=== PATIENT | male | born 1930 | race Caucasian/White ===

== ENCOUNTER 2016-12-15 21:02 | Inpatient (IN) | payer MEDICARE ==
[2016-12-15] MEDS ORDERED: Acetaminophen TAB* 325 MG PO PRN (22:30)
[2016-12-15] MEDS ORDERED: Heparin DRIP 25,000 UNITS(*) 25,000 UNITS/500 ML BAG IV SCH (22:30)
[2016-12-15] MEDS ORDERED: Ondansetron INJ* 2 MG/ML VIAL IV PRN (22:35)
[2016-12-15] MEDS: Morphine INJ* 4 MG/ML 1 ML CARPUJECT IV PRN (22:52)
[2016-12-15] MEDS ORDERED: Diltiazem DRIP* 100 MG/100 ML ADDV.BAG IVPB SCH (23:00)
[2016-12-15] MEDS ORDERED: Heparin VIAL(*) 5000 UNITS/ML VIAL (FIVE THOUSAND) IV SCH (23:00)
[2016-12-15 23:46] LABS: Hematocrit 36 % (42-52); Mean Corpuscular HGB Conc 33 g/dl (31-36); Mean Corpuscular Hemoglobin 31 pg (27-31); Mean Corpuscular Volume 93 fL (80-94); Mean Platelet Volume 8 um3 (7.4-10.4); Red Blood Count 3.85 10^6/ul (4.0-5.4); Red Cell Distribution Width 14 % (10.5-15); White Blood Count 9.4 10^3/ul (3.5-10.8)
[2016-12-16 00:11] LABS: Albumin 3.1 g/dL (3.2-5.2); BUN/Creatinine Ratio 16.8 (8-20); Calcium 8.7 mg/dL (8.6-10.3); EGFR African American 79.3 (>60); EGFR Non-African American 61.7 (>60); Globulin 3.6 g/dL (2-4); Total Bilirubin 0.9 mg/dL (0.2-1.0); Total Protein 6.7 g/dL (6.4-8.9)
[2016-12-16 00:13] LABS: Troponin I 0.03 ng/mL (<0.04)
[2016-12-16] MEDS: Heparin VIAL(*) 5000 UNITS/ML VIAL (FIVE THOUSAND) IV SCH ×2 (00:35→18:28)
[2016-12-16] MEDS: Heparin DRIP 25,000 UNITS(*) 25,000 UNITS/500 ML BAG IVPB SCH (00:39)
[2016-12-16] MEDS ORDERED: Iohexol 350* (CONTRAST) 500 ML MDV IV ONE (03:09)
--- NOTE | 2016-12-16 03:36 | HP ---
HISTORY AND PHYSICAL: DATE OF ADMISSION: 12/15/16 CHIEF COMPLAINT: Chest pain. HISTORY OF PRESENT ILLNESS: The patient is an 86-year-old gentleman, who stated he went to get grocery this morning, about half way there, he started feeling awful. He felt overwhelming sickness, but mostly pain in the center of his chest. It was very bad whenever he took a deep breath. At its worst, by noon, it was 10/10 in severity. He took nothing for it. There was no radiation of the pain. He had no shortness of breath, no nausea, no sweatiness or clamminess, no palpitations. Eventually, he went to the emergency room where apparently he was given morphine when pain got better. It also improved as his heart rate got better and there he was found to have an atrial fibrillation with a rapid ventricular response. The patient states that he had this many years ago between ages of 21 and 41, but it went away eventually. PAST MEDICAL HISTORY: Significant for hypertension, hyperlipidemia, and atrial fibrillation as noted. PAST SURGICAL HISTORY: Bilateral total knee replacements and a tear in his right shoulder that was repaired. CURRENT MEDICATIONS: 1. Imipramine 150 mg at bedtime and 50 mg daily. 2. Simvastatin 40 mg in the evening. 3. Omeprazole 20 mg twice daily. 4. Hydrochlorothiazide 12.5 mg daily. 5. Atenolol 25 mg family. ALLERGIES: He has an allergy/adverse reaction to CODEINE. FAMILY HISTORY: Noncontributory. SOCIAL HISTORY: No tobacco, quit at age 41, rare alcohol. No recreational drug use. 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 He is , with 3 children. His daughter, Alexandria Balderas, and his son, Amilcar Patterson, are his healthcare proxies. REVIEW OF SYSTEMS: A 14-point review of systems completed with the patient. All pertinent positives and negatives are in the history of present illness, otherwise is negative. PHYSICAL EXAMINATION GENERAL: A pleasant gentleman lying in bed, in no acute distress. VITAL SIGNS: Blood pressure is 98/71, pulse ox 97% on 2 L, respiratory rate 20 breaths per minute, heart rate 156 beats a minute, temperature 97.7 degrees. HEENT: Normocephalic, atraumatic. Pupils equal, round, and reactive to light. Moist mucous membranes. NECK: Supple. No JVD, bruits, palpable thyroid, or lymphadenopathy. CHEST: Clear to auscultation and percussion bilaterally. CARDIOVASCULAR: S1, S2 appreciated. Increased rate. Irregularly irregular rhythm. ABDOMEN: Positive bowel sounds in all 4 quadrants. Soft, nontender, nondistended. No hepatosplenomegaly. EXTREMITIES: No cyanosis, clubbing, or edema. +2 peripheral pulses bilaterally. NEURO: Alert and oriented x3. He moves all extremities. SKIN: No rashes or abnormalities. DIAGNOSTIC STUDIES/LAB DATA: White count 9.4, hemoglobin 12.0, hematocrit 36, platelets 207. Sodium 135, potassium 4.0, chloride 105, CO2 24, BUN 19, creat 1.13, glucose 111. D-dimer is 277. EKG shows AFib with a rapid ventricular response. Chest x-ray at [facility] preliminary review apparently shows no apparent infiltrates. ASSESSMENT AND PLAN: 1. Atrial fibrillation with a rapid ventricular response. The patient placed on Cardizem drip. Heparin drip as well. We will get a transthoracic echo in the morning, but may want to get a DANYEL with cardioversion with Cardiology consult. His D-dimers were mildly elevated but since his negative predictive value is his strongest indicator, I will get a CTA of his chest. I will cycle his troponins and so far, I do not think that acute coronary syndrome is the cause. 2. Hypertension. Blood pressure is adequately controlled. Continue current regimen. 3. Hyperlipidemia. Stable. Continue statin. 4. FEN. NPO after midnight. 5. DVT prophylaxis. He is on heparin drip. 6. The patient is a full code. TIME SPENT: Over 75 minutes was spent on this H and P, more than 40 minutes of which was spent in direct [id number] contact with the patient in evaluation, physical exam, counseling, and coordination of care. CC: Dr. Bentley Spears * [id number]/[facility] #: [id number] TEDDY
--- NOTE | 2016-12-16 06:36 | PN ---
Progress Note - Progress Note Note: Received call from instructor product inspection radiologist - ct scan shows mediastinal Lymphadenopathy, epigastric Lymphadenopathy, moderate pericardial effusion. No PE.
--- NOTE | 2016-12-16 08:10 | RAD ---
INDICATION: Chest pain. Short of breath. Evaluate for pulmonary embolus. COMPARISON: None TECHNIQUE: Axial source images were obtained from the thoracic inlet to the hemidiaphragms following administration of [address] angiographic technique was utilized. Coronal and sagittal reconstructed images were acquired. CHEST FINDINGS: Neck/thyroid: The visualized neck to include the thyroid appear normal. Chest wall: There are no acute abnormalities of the bony thorax or chest wall. There is spondylitic change of the thoracic spine There is no supraclavicular, infraclavicular, or axillary lymphadenopathy. Lungs : There are no worrisome pulmonary parenchymal masses or infiltrates. There is gravity dependent atelectasis. There are several tiny calcified granulomas and there are several tiny parenchymal nodules which are not calcified which are represent nonspecific findings. Given the findings reported below, metastasis are not excluded. These are in the 2 4 mm range. There is coarsening of interstitium compatible with emphysema. There are no endobronchial lesions. Cardiomediastinal structures: There is no CT evidence of acute pulmonary embolic disease. The heart is normal in size. There is a small pericardial effusion. There is no evidence of aortic aneurysm or dissection. There is mild ectasia of the aorta. There are atherosclerotic changes of the aorta there multiple mildly prominent mediastinal lymph nodes. The largest lymph nodes are in the pretracheal space is 1.2 cm lymph node. There is a subcarinal lymph node measuring 1.8 cm. Both measurements are in short axis. There are additional smaller lymph nodes which remain moderate with a prominent. The esophagus appears normal. Pleura : There are no pleural-based masses or effusions. Other: Limited views the upper abdomen show a moderate-sized hiatal hernia with apparent thickening of the distal esophagus. Suggest upper endoscopy. There is a mass along lesser curvature measuring 3.4 x 2.5 cm IMPRESSION: 1. No CT evidence of acute pulmonary embolic disease. 2. Multiple small nonspecific pulmonary parenchymal nodules. Metastasis are not excluded. 3. Mildly mediastinal adenopathy 4. Lesser curvature lymph node mass measuring 3.4 cm. 5. Thickened distal esophagus seen in conjunction with a hiatal hernia. Suggest upper endoscopy in light of the presence of adenopathy
--- NOTE | 2016-12-16 09:05 | PN ---
Subjective Date of Service: 12/16/16 Interval History: Patient seen and examined at bedside. He is laying in bed and resting comfortably. He denies CP, SOB, dizziness, palpitations, abd pain, n/v at this time. He recalls a remote history of "something wrong with his heart" but then states that it got better and has been "off and on" over the years. He cannot recall the name of his PCP or the name of his field care coordinator, who he no longer follows with. He states yesterday he had severe chest pain that went up into his neck. He states that he has had this pain in the past and thinks that it corresponds with "the heart problem." Telemetry: Afib 110s Family History: Unchanged from Admission Social History: Unchanged from Admission Past Medical History: Unchanged from Admission Objective Active Medications: Acetaminophen (Tylenol Tab*) 650 mg PO Q4H PRN PRN Reason: pain/fever Heparin Sodium (Porcine) (Heparin Vial(*)) 0 units IV .PER PROTOCOL ALEE PRN Reason: Protocol Last Admin: 12/16/16 00:35 Dose: 5,250 units Diltiazem HCl (Cardizem Iv Advan*) 100 mg in 100 mls @ 5 mls/hr IVPB .PER RATE ALEE PRN Reason: 5 MG/HR Last Admin: 12/15/16 23:05 Dose: 5 mls/hr Heparin Sodium/Dextrose (Heparin Drip 25,000 Units(*)) 25,000 units in 500 mls @ 0 mls/hr IVPB .PER RATE ALEE; Per Protocol PRN Reason: Protocol Last Admin: 12/16/16 00:39 Dose: 1,000 mls/hr Morphine Sulfate (Morphine Inj (Syringe)*) 4 mg IV Q4H PRN PRN Reason: PAIN Last Admin: 12/15/16 22:52 Dose: 4 mg Ondansetron HCl (Zofran Inj*) 4 mg IV Q4H PRN PRN Reason: NAUSEA Last Admin: 12/15/16 22:52 Dose: 4 mg Vital Signs 12/15/16 12/15/16 12/15/16 22:28 22:32 22:52 Temperature 97.7 F Pulse Rate 153 Respiratory 25 20 20 Rate Blood Pressure 121/73 (mmHg) O2 Sat by Pulse 95 Oximetry 12/15/16 12/15/1612/15/17 22:55 23:00 23:05 Temperature Pulse Rate 149 137 Respiratory 26 22 Rate Blood Pressure 106/72 114/79 117/79 (mmHg) O2 Sat by Pulse 96 100 Oximetry 12/15/16 12/15/16 12/15/16 23:10 23:15 23:20 Temperature Pulse Rate 150 141 122 Respiratory 21 22 25 Rate Blood Pressure 128/108 113/78 117/80 (mmHg) O2 Sat by Pulse 95 99 93 Oximetry 12/15/16 12/15/16 12/15/16 23:25 23:30 23:35 Temperature Pulse Rate 159 156 140 Respiratory 23 22 21 Rate Blood Pressure 104/76 94/74 104/80 (mmHg) O2 Sat by Pulse 99 100 97 Oximetry 12/15/16 12/15/16 12/15/16 23:40 23:45 23:50 Temperature Pulse Rate 139 140 140 Respiratory 24 22 22 Rate Blood Pressure 115/84 111/89 123/96 (mmHg) O2 Sat by Pulse 99 99 99 Oximetry 12/15/16 12/15/16 12/16/16 23:52 23:55 00:00 Temperature Pulse Rate 154 151 Respiratory 16 23 22 Rate Blood Pressure 103/79 97/73 (mmHg) O2 Sat by Pulse 98 94 Oximetry 12/16/16 12/16/16 12/16/16 00:05 00:15 00:30 Temperature Pulse Rate 144 151 138 Respiratory 21 22 22 Rate Blood Pressure 103/72 107/67 69/27 (mmHg) O2 Sat by Pulse 90 100 99 Oximetry 12/16/16 12/16/16 12/16/16 00:37 00:45 00:49 Temperature Pulse Rate 157 157 Respiratory 23 20 Rate Blood Pressure 103/79 81/56 98/71 (mmHg) O2 Sat by Pulse 97 97 Oximetry 12/16/16 12/16/16 12/16/16 01:00 01:22 01:30 Temperature Pulse Rate 141 147 Respiratory 23 16 23 Rate Blood Pressure 105/87 104/66 (mmHg) O2 Sat by Pulse 96 94 Oximetry 12/16/16 12/16/16 12/16/16 02:00 02:30 03:00 Temperature Pulse Rate 142 135 Respiratory 22 22 23 Rate Blood Pressure 93/68 99/84 (mmHg) O2 Sat by Pulse 98 97 Oximetry 02/12/16/16 12/16/16 03:09 04:00 05:00 Temperature Pulse Rate Respiratory 25 22 21 Rate Blood Pressure 104/67 104/72 101/66 (mmHg) O2 Sat by Pulse Oximetry 12/16/16 12/16/16 12/16/16 06:00 07:00 07:29 Temperature Pulse Rate Respiratory 18 18 20 Rate Blood Pressure 119/58 113/72 100/61 (mmHg) O2 Sat by Pulse Oximetry 12/16/16 08:00 Temperature Pulse Rate Respiratory 17 Rate Blood Pressure 108/70 (mmHg) O2 Sat by Pulse Oximetry Oxygen Devices in Use Now: None Appearance: Elderly male, lying in bed, in NAD Eyes: PERRLA Ears/Nose/Mouth/Throat: Clear Oropharnyx, Mucous Membranes Moist Neck: NL Appearance and Movements; NL JVP Respiratory: Symmetrical Chest Expansion and Respiratory Effort, Clear to Auscultation Cardiovascular: NL Sounds; No Murmurs; No JVD - irregular rate Abdominal: NL Sounds; No Tenderness; No Distention Extremities: No Edema Skin: No Rash or Ulcers Neurological: Alert and Oriented x 3 - mildly confused to time, poor short term memory Lines/Tubes/Other Access: Clean, Dry and Intact Peripheral IV Result Diagrams: 12/15/16 23:30 12/15/16 23:30 Assess/Plan/Problems-Billing Assessment: Mr. Patterson is an 86 yo male with a PMH of HTN, HLD, compression fractures, CKD stage III, depression, GERD, spinal stenosis, and paroxysmal SVT who was transferred from [place] for evaluation and treatment of chest pain and new atrial fibrillation; incidental finding also made of mediastinal lymphadenopathy , esophageal thickening and concern for mass. - Patient Problems (1) Atrial fibrillation with rapid ventricular response Code(s): I48.91 - UNSPECIFIED ATRIAL FIBRILLATION Comment: Now rate controlled, switch from IV to PO cardizem Keep NPO for cardiology consult and potential cardioversion Continue heparin gtt (2) Chest pain Code(s): R07.9 - CHEST PAIN, UNSPECIFIED Comment: Denies chest pain with rate control, troponin 0.03 Continue heparin gtt Stress test in AM (3) Mediastinal lymphadenopathy Code(s): R59.0 - LOCALIZED ENLARGED LYMPH NODES Comment: With epigastric lymphadenopathy, esophageal thickening and concern for mass GI consult pending NPO for potential upper endoscopy tomorrow (4) HTN (hypertension) Code(s): I10 - ESSENTIAL (PRIMARY) HYPERTENSION Comment: Continue atenolol. Now on diltazem gtt. (5) HLD (hyperlipidemia) Code(s): E78.5 - HYPERLIPIDEMIA, UNSPECIFIED Comment: Continue statin. (6) CKD (chronic kidney disease), stage III Code(s): N18.3 - CHRONIC KIDNEY DISEASE, STAGE 3 (MODERATE) Comment: Creatinine WNL. (7) Major depressive disorder Code(s): F32.9 - MAJOR DEPRESSIVE DISORDER, SINGLE EPISODE, UNSPECIFIED Comment: Stable, continue imipramine. (8) GERD (gastroesophageal reflux disease) Code(s): K21.9 - GASTRO-ESOPHAGEAL REFLUX DISEASE WITHOUT ESOPHAGITIS Comment : Stable, continue PPI. (9) History of paroxysmal supraventricular tachycardia Code(s): Z86.79 - PERSONAL HISTORY OF OTHER DISEASES OF THE CIRCULATORY SYSTEM Comment: Continue atenolol. (10) Spinal stenosis Code(s): M48.00 - SPINAL STENOSIS, SITE UNSPECIFIED Comment: Supportive care. (11) DVT prophylaxis Code(s): NFY8985 - Comment: Heparin gtt Status and Disposition: Inpatient admission. Anticipate LOS >2 days.
[2016-12-16] MEDS ORDERED: Diltiazem TAB* 30 MG PO SCH (12:00)
--- NOTE | 2016-12-16 13:19 | ECHO ---
Patient: JAIMEE STUART [facility] Rec#: [id number] : 1930 Date: 12/16/2016 Age: 86y Height: 177.8 cm / 70.0 in Weight: 70.76 kg / 156.0 lbs Sex: M BSA: 1.88 Room#: 438 Admit Date#: 12/15/2016 Type: Inpatient Referring: Matias Jason MD Reading: Cirilo Grace MD Water Treatment Operator: Malou Joiner Water Treatment Operator: Glendy You RN RDCS Transthoracic Echocardiogram Indication: A-Fib, Chest pain BP: 119/58 HR: 105 Rhythm: A-Fib Findings History: HTN, HLD, A-Fib. Technical Comments: The study quality is good. Completed at 1240. Left Ventricle: The left ventricular chamber size is normal. Septal wall hypertrophy is observed. There is increased basal septal hypertrophy noted without evidence of an increased gradient across the left ventricular outflow tract. Global left ventricular wall motion and contractility are within normal limits. There is normal left ventricular systolic function. The estimated ejection fraction is 55-60%. The assessment of diastolic function is non-diagnostic. Left Atrium: The left atrium is mildly dilated. Right Ventricle: The right ventricular cavity size is normal. The right ventricular global systolic function is normal. Right Atrium: The right atrium is mildly dilated. A prominent chiari network is noted in the right atrium. Aortic Valve: The aortic valve is trileaflet. The aortic valve leaflets are mildly thickened. There is a trace of aortic regurgitation. There is no evidence of aortic stenosis. Mitral Valve: There is mitral annular calcification. The mitral valve leaflets are mildly thickened. There is mild to moderate mitral regurgitation. There is no evidence of mitral stenosis. Tricuspid Valve: The tricuspid valve leaflets are normal. There is mild tricuspid regurgitation. No pulmonary hypertension is noted. There is no tricuspid stenosis. Pulmonic Valve: The pulmonic valve appears normal. There is a trace pulmonic regurgitation. There is no pulmonic stenosis. Pericardium: There is a small pericardial effusion. There are no signs of significant hemodynamic compromise. There is a circumferential pericardial effusion. Aorta: There is no dilatation of the ascending aorta. There is no dilatation of the aortic arch. There is no dilation of the aortic root. Pulmonary Artery: The main pulmonary artery appears normal. Venous: The inferior vena cava appears normal in size. There is an approximate 50% respiratory change in the inferior vena cava dimension. Conclusions Global left ventricular wall motion and contractility are within normal limits. There is normal left ventricular systolic function. The estimated ejection fraction is 55-60%. There is increased basal septal hypertrophy noted without evidence of an increased gradient across the left ventricular outflow tract. The right ventricular global systolic function is normal. The aortic valve leaflets are mildly thickened. There is a trace of aortic regurgitation. The mitral valve leaflets are mildly thickened. There is mild to moderate mitral regurgitation. There is mild tricuspid regurgitation. No pulmonary hypertension is noted. There is a small pericardial effusion. There are no signs of significant hemodynamic compromise. Measurements Name Value Normal Range RVIDd (AP) 2D 2.2 cm (0.9 - 2.6) RVDdMajor (2D) 2.5 cm (2.2 - 4.4) RAd ISD 4CH 5.3 cm (3.4 - 4.9) RA (A4C)W 3.9 cm (2.9 - 4.6) IVSd (2D) 1.1 cm (0.6 - 1) LVPWd (2D) 0.9 cm (0.6 - 1) LVIDd (2D) 3.7 cm (3.6 - 5.4) LVIDs (2D) 2.7 cm - LV FS (2D) 27 % (25 - 45) Aortic Annulus 2.1 cm (1.4 - 2.6) Ao root diameter (2D) 3.4 cm (2.1 - 3.5) Ascending Ao 3.1 cm (2.1 - 3.4) Aortic arch 2.5 cm (1.8 - 3.4) LA dimension (AP) 2D 3.9 cm (2.3 - 3.8) LAd ISD 4CH 5.8 cm (2.9 - 5.3) LA ISD 4CH W 4.3 cm (2.5 - 4.5) Name Value Normal Range LA ESV SP 4CH (A/L) 65 ml - LA ESV SP 2CH (A/L) 59 ml - LA ESV BP (A/L) 64 ml - LA ESV BP (A/L) index 34 ml/m2 - LA ESV SP 4CH (MOD) 61 ml - LA ESV SP 2CH (MOD) 56 ml - Name Value Normal Range MV E-wave Vmax 1.1 m/sec - MV deceleration time 149 msec - LV septal e' Vmax 0.07 m/sec - LV lateral e' Vmax 0.08 m/sec - LV E:e' septal ratio 15.7 ratio - LV E:e' lateral ratio 13.8 ratio - Name Value Normal Range AV Vmax 0.8 m/sec - AV VTI 12.5 cm - AV peak gradient 2.57 mmHg - AV mean gradient 1.57 mmHg - LVOT Vmax 0.8 m/sec - LVOT VTI 11.8 cm - LVOT peak gradient 2.76 mmHg - LVOT mean gradient 1.4 mmHg - CHANDNI Vmax 0.4 m/sec - Name Value Normal Range TR Vmax 2.4 m/sec - TR peak gradient 23 mmHg - RAP 8 mmHg - RVSP 31 mmHg - IVC diameter 1.8 cm - Name Value Normal Range PV Vmax 0.7 m/sec - PV peak gradient 2.1 mmHg -
[2016-12-16] MEDS ORDERED: Midazolam* 1 MG/ML 5 ML VIAL (5 MG) ONE (15:17)
[2016-12-16] MEDS ORDERED: Naloxone* 0.4 MG/ML 1 ML VIAL ONE (15:18)
[2016-12-16] MEDS ORDERED: Flumazenil* 0.1 MG/ML 5 ML MDV ONE (15:18)
[2016-12-16] MEDS ORDERED: fentaNYL* 50 MCG/ML 2 ML VIAL (100 MCG VIAL) ONE (15:18)
[2016-12-16] MEDS ORDERED: Amiodarone IV VIAL* 3 ML ONE (15:35)
[2016-12-16] MEDS: Atorvastatin* 20 MG TAB PO SCH (18:13)
[2016-12-16] MEDS: Atenolol TAB* 25 MG PO SCH (18:13)
[2016-12-16] MEDS ORDERED: IMIPRAMINE 50 MG PO SCH (21:00)
[2016-12-16] MEDS: Amiodarone TAB* 200 MG PO SCH (21:04)
[2016-12-16] MEDS: Omeprazole CAP* 20 MG PO SCH (21:04)
--- NOTE | 2016-12-16 21:15 | CONS ---
CARDIOLOGY CONSULTATION: DATE OF CONSULTATION: 12/16/16 INDICATION FOR CONSULTATION: Atrial fibrillation. HISTORY OF PRESENT ILLNESS: The patient is an 86-year-old gentleman with little past medical history who was admitted to the hospital at [place] because of atrial fibrillation and rapid ventricular response. The patient states that he woke up yesterday morning feeling just fine. He has had no problems and no concerns for the past couple of weeks. He has had no chest pain. No shortness of breath. No changes in medications. No hospitalizations. The patient was out shopping when he had sudden onset of chest pain. He also got some degree of nausea. The patient said that he had severe chest pain radiating, it is 10/10. He said it became worse when he took a deep breath. Eventually, the patient went to the emergency room and was found to be in atrial fibrillation with rapid ventricular response. The patient was given morphine for pain control and Cardizem drip for heart rate control and transferred over to [facility]. PAST MEDICAL HISTORY: Significant for hypertension, hyperlipidemia, possible cardiac arrhythmia. PAST SURGICAL HISTORY: Bilateral knee replacements, shoulder surgery. OUTPATIENT MEDICATIONS: 1. Imipramine 150 mg at night and 50 mg in the morning. 2. Simvastatin 40 mg a day. 3. Omeprazole 20 mg twice a day. 4. Hydrochlorothiazide 12.5 mg a day. 5. Atenolol 25 mg a day. ALLERGIES: He is intolerant of CODEINE. FAMILY HISTORY: No family history of early coronary artery disease or cardiac arrhythmias. SOCIAL HISTORY: He is . 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 He has 3 children. He denies tobacco use. Rare alcohol use. REVIEW OF SYSTEMS: Negative for fevers and chills. Negative for changes in bowel or bladder habits. Negative for changes in weight. Positive for possible arrhythmia. The patient states that over years he has had episodes of chest pain and heart racing, his last episode was 4 weeks ago, they tend to last for approximately 5 to 10 minutes. He has never had any workup for this symptom. PHYSICAL EXAMINATION: Height is 5 feet 10 inches, weight is 156 pounds. Heart rate is 110 and irregular, respiratory rate is 16, blood pressure is 111/82, temperature 99.5. Sclerae anicteric. Oropharynx is pink without erythema. Carotids are 2+ without bruits. JVD is normal. Thyroid is normal. Cardiac Exam: S1, S2 without any murmurs, rubs, or gallops. PMI is normal. Lungs are clear to auscultation bilaterally with no dullness to percussion. Abdomen is soft, nontender, and nondistended with normoactive bowel sounds. Extremities show no edema. He has 2+ pulses throughout. The patient is awake, alert, and oriented. He moves all 4 extremities equally. LABORATORY DATA/DIAGNOSTIC STUDIES: The patient did have CTA of chest. There was no evidence of pulmonary embolism. There was a small pericardial effusion. There is thickening of the distal esophagus. Mild adenopathy. CBC within normal limits. Chemistries within normal limits. BUN 19, creatinine 1.1. AST and ALT are within normal limits. Troponins are negative x2. IMPRESSION: This an 86-year-old gentleman with a sudden onset of chest pain and rapid heartbeat yesterday. He was diagnosed with atrial fibrillation with rapid ventricular response. The patient did have an echocardiogram today, which showed normal LV size and systolic function. No significant valvular abnormalities. He did have a small pericardial effusion. Laboratory studies are unremarkable. His EKG shows atrial fibrillation. RECOMMENDATIONS: For now my recommendation is the patient undergo cardioversion. I think the patient has been in atrial fibrillation less than 24 hours and has been anticoagulated. I do not think a transesophageal echocardiogram is necessary, particularly given the findings on his CAT scan, which are concerning for thickening of the distal esophagus. The patient will be started on amiodarone 200 mg twice a day for control of atrial fibrillation. I will schedule the patient for an exercise nuclear stress test, given the fact that the patient has had episodes of chest pain over the last couple of weeks and had chest pain on presentation here. The patient will likely be discharged on Eliquis 5 mg twice a day as well as amiodarone 200 mg twice a day. I will see the patient in followup at my [facility] in 2 to 3 weeks. CC: Dr. Bentley Spears * [id number]/[facility] #: [id number] TEDDY
--- NOTE | 2016-12-16 21:15 | CARD ---
CARDIOVERSION: DATE OF PROCEDURE: 12/16/16 - ROOM #438 PROCEDURE: Cardioversion. INDICATION: Atrial fibrillation. The patient is an 86-year-old gentleman who was admitted to the hospital yesterday with an episode of chest pain and shortness of breath. He was found to be in atrial fibrillation with rapid ventricular response. The patient was recommended for a cardioversion. He was in atrial fibrillation in less than 24 hours, thus a transesophageal echocardiogram was not needed. PROCEDURE IN DETAIL: The patient was in a fasting state. Informed consent had been obtained prior to the procedure. All labs have been reviewed. The patient was on heparin drip. The patient was given 4 mg of Versed and 50 mcg of fentanyl for conscious sedation. The patient was cardioverted with 125 joules of synchronized biphasic energy. The patient converted to normal sinus rhythm. The patient tolerated the procedure well with no complications. The patient will be continued on anticoagulation and be started on amiodarone 200 mg b.i.d. for 1 week and then it will be decreased to 200 mg once a day. The patient was seen in followup as an outpatient. CC: Dr. Bentley Spears * [id number]/[facility] #: [id number] MTDAlicia
[2016-12-16] MEDS ORDERED: Metoprolol Tartrate IV* 1 MG/ML 5 ML VIAL IV ONE (22:14)
[2016-12-17] MEDS: Morphine INJ* 4 MG/ML 1 ML CARPUJECT IV PRN (00:33)
[2016-12-17 02:19] LABS: Hematocrit 35 % (42-52); Hemoglobin 11.5 g/dl (14.0-18.0); Mean Corpuscular HGB Conc 33 g/dl (31-36); Mean Corpuscular Hemoglobin 31 pg (27-31); Mean Corpuscular Volume 92 fL (80-94); Mean Platelet Volume 8 um3 (7.4-10.4); Red Blood Count 3.75 10^6/ul (4.0-5.4); Red Cell Distribution Width 14 % (10.5-15); White Blood Count 8.6 10^3/ul (3.5-10.8)
[2016-12-17 02:34] LABS: BUN/Creatinine Ratio 20.6 (8-20); Calcium 8.5 mg/dL (8.6-10.3); EGFR African American 84.5 (>60); EGFR Non-African American 65.7 (>60); Magnesium 1.4 mg/dL (1.9-2.7); Potassium 3.6 mmol/L (3.5-5.0)
[2016-12-17] MEDS: Heparin DRIP 25,000 UNITS(*) 25,000 UNITS/500 ML BAG IVPB SCH (05:00)
[2016-12-17] MEDS ORDERED: Magnesium Sulf 4 GM/100 ML IV* 4,000 MG/100 ML BAG IVPB ONE (08:00)
[2016-12-17] MEDS ORDERED: IMIPRAMINE 50 MG PO SCH (09:00)
[2016-12-17] MEDS ORDERED: Regadenoson* 0.4 MG/5 ML SYRINGE ONE (09:22)
--- NOTE | 2016-12-17 11:05 | RAD ---
Edited for charges. INDICATION: Chest pain. Elevated cholesterol, hypertension. COMPARISON: December 16, 2016 CT chest. TECHNIQUE: 10.700 mCi of Tc-99m Myoview were administered IV. SPECT images of the heart were obtained. Later on the same day, under the direction of Dr. Grace, the patient was given an IV injection of a pharmacologic stress agent. Subsequently, the patient was given an IV injection of 25.570 mCi Tc-99m Myoview. SPECT images of the heart were obtained and a gated wall motion study was performed. CT for attenuation could not be performed due to limitation in range of motion of the arms. FINDINGS: Gated wall motion images were obtained at stress and demonstrate wall motion to be within normal limits. Calculated left ventricular ejection fraction is 64 % at stress. Estimated LEFT ventricular end diastolic volume is 54 mL. TID 1.0. Based on review of the non attenuation corrected images the distribution of radiopharmaceutical within the myocardium on the stress and rest images is within normal limits. No fixed or reversible regions of hypoperfusion evident. IMPRESSION: 1. No evidence for stress-induced ischemia or presence of an infarct. 2. Normal range LEFT ventricular wall motion and estimated ejection fraction. ASSESSMENT: Low risk. Based on imaging criteria from ACC/AHA 2002 Guideline Update for the Management of Patients With Chronic Stable Angina Table 23. Noninvasive Risk Stratification. MTDD
[2016-12-17] MEDS: Omeprazole CAP* 20 MG PO SCH ×2 (11:18→21:29)
[2016-12-17] MEDS: Amiodarone TAB* 200 MG PO SCH (11:18)
[2016-12-17] MEDS: Atenolol TAB* 25 MG PO SCH (11:18)
[2016-12-17] MEDS: Potassium Chlor TAB* 20 MEQ TAB.ER PO SCH ×3 (11:18→21:29)
[2016-12-17] MEDS: CMC:Imipramine (NF) 25 MG TAB PO SCH ×2 (11:18→21:29)
[2016-12-17] MEDS ORDERED: Apixaban* 5 MG TAB PO SCH (13:00)
[2016-12-17] MEDS ORDERED: Meperidine SYRINGE* 50 MG/ML ONE (14:53)
[2016-12-17] MEDS ORDERED: Midazolam* 1 MG/ML 5 ML VIAL (5 MG) ONE (14:53)
--- NOTE | 2016-12-17 16:16 | PN ---
Subjective Date of Service: 12/17/16 Interval History: Patient seen and examined at bedside. Family at bedside. He denies CP, SOB, abd pain, n/v. He is tearful, stating "I have depression" and is worried about his meds. He also states he has a sick . He is grateful that his family is here. Telemetry: Afib 100s Family History: Unchanged from Admission Social History: Unchanged from Admission Past Medical History: Unchanged from Admission Objective Active Medications: Acetaminophen (Tylenol Tab*) 650 mg PO Q4H PRN PRN Reason: pain/fever Atenolol (Tenormin Tab*) 25 mg PO DAILY [facility] Last Admin: 12/17/16 11:18 Dose: 25 mg Atorvastatin Calcium (Lipitor*) 20 mg PO QPM [facility] Last Admin: 12/16/16 18:13 Dose: 20 mg Diltiazem HCl (Cardizem Cd Cap*) 120 mg PO DAILY [facility] Diltiazem HCl (Cardizem Tab*) 30 mg PO Q6HR [facility] Stop: 12/18/16 00:01 Imipramine HCl (Imipramine (Nf)) 50 mg PO DAILY [facility] Last Admin: 12/17/16 11:18 Dose: 50 mg Imipramine HCl (Imipramine (Nf)) 150 mg PO BEDTIME [facility] Morphine Sulfate (Morphine Inj (Syringe)*) 4 mg IV Q4H PRN PRN Reason: PAIN Last Admin: 12/17/16 00:33 Dose: 4 mg Omeprazole (Prilosec Cap*) 20 mg PO BID [facility] Last Admin: 12/17/16 11:18 Dose: 20 mg Ondansetron HCl (Zofran Inj*) 4 mg IV Q4H PRN PRN Reason: NAUSEA Last Admin: 12/15/16 22:52 Dose: 4 mg Potassium Chloride (Klor Con Er Tab*) 20 meq PO TID [facility] Last Admin: 12/17/16 11:18 Dose: 20 meq Vital Signs 12/16/16 12/16/16 12/16/16 17:24 18:06 19:45 Temperature 97.3 F 98.3 F Pulse Rate 57 89 85 Respiratory 16 Rate Blood Pressure 95/81 107/49 109/64 (mmHg) O2 Sat by Pulse 95 96 93 Oximetry 12/16/16 12/17/16 12/17/16 20:00 00:09 00:33 Temperature 98.4 F Pulse Rate 101 Respiratory 16 22 16 Rate Blood Pressure 119/69 (mmHg) O2 Sat by Pulse 91 Oximetry 12/17/16 12/17/16 12/17/16 01:33 03:50 07:26 Temperature 97.7 F 97.8 F Pulse Rate 112 108 Respiratory 18 20 16 Rate Blood Pressure 122/66 118/74 (mmHg) O2 Sat by Pulse 93 96 Oximetry 12/17/16 12/17/16 07:55 10:57 Temperature 97.3 F Pulse Rate 131 Respiratory 16 16 Rate Blood Pressure 102/41 (mmHg) O2 Sat by Pulse 88 Oximetry Oxygen Devices in Use Now: None Appearance: Elderly male, lying in bed, tearful in demeanor but otherwise appears hemodynamically stable Eyes: PERRLA Ears/Nose/Mouth/Throat: Mucous Membranes Moist Neck: NL Appearance and Movements; NL JVP Respiratory: Symmetrical Chest Expansion and Respiratory Effort, Clear to Auscultation Cardiovascular: NL Sounds; No Murmurs; No JVD - irregular rate/rhythm Abdominal: NL Sounds; No Tenderness; No Distention Extremities: No Edema Skin: No Rash or Ulcers Neurological: Alert and Oriented x 3 Lines/Tubes/Other Access: Clean, Dry and Intact Peripheral IV Nutrition: Taking PO's Result Diagrams: 12/17/16 02:06 12/17/16 02:06 Assess/Plan/Problems-Billing Assessment: Mr. Patterson is an 86 yo male with a PMH of HTN, HLD, compression fractures, CKD stage III, depression, GERD, spinal stenosis, and paroxysmal SVT who was transferred from [place] for evaluation and treatment of chest pain and new atrial fibrillation; incidental finding also made of mediastinal lymphadenopathy , esophageal thickening and concern for mass. - Patient Problems (1) Atrial fibrillation with rapid ventricular response Code(s): I48.91 - UNSPECIFIED ATRIAL FIBRILLATION Comment: Previous plan for cardioversion, but this has been cancelled due to finding of mass Per cardiology, d/c amiodarone and continue rate control with atenolol and cardizem Hold on anticoagulation given new finding of potential adenocarcinoma (2) Mediastinal lymphadenopathy Code(s): R59.0 - LOCALIZED ENLARGED LYMPH NODES Comment: With epigastric lymphadenopathy, esophageal thickening and concern for mass Appreciate GI consult Mass seen and biopsied by GI, expressed concern for potential adenocarcinoma Also evidence of Clayton's esophagus, hiatal nernia Discussed with oncology, who will review case; onc recommends pathology results to be finalized before official consult. (3) Chest pain Code(s): R07.9 - CHEST PAIN, UNSPECIFIED Comment: Denies chest pain with rate control, troponin 0.03 Stress test negative for stress-induced ischemia or infarct (4) HTN (hypertension) Code(s): I10 - ESSENTIAL (PRIMARY) HYPERTENSION Comment: Normotensive, continue atenolol and diltiazem. (5) HLD (hyperlipidemia) Code(s): E78.5 - HYPERLIPIDEMIA, UNSPECIFIED Comment: Continue statin. (6) CKD (chronic kidney disease), stage III Code(s): N18.3 - CHRONIC KIDNEY DISEASE, STAGE 3 (MODERATE) Comment: Creatinine WNL. (7) Major depressive disorder Code(s): F32.9 - MAJOR DEPRESSIVE DISORDER, SINGLE EPISODE, UNSPECIFIED Comment: Stable, continue imipramine. (8) GERD (gastroesophageal reflux disease) Code(s): K21.9 - GASTRO-ESOPHAGEAL REFLUX DISEASE WITHOUT ESOPHAGITIS Comment : Stable, continue PPI. (9) History of paroxysmal supraventricular tachycardia Code(s): Z86.79 - PERSONAL HISTORY OF OTHER DISEASES OF THE CIRCULATORY SYSTEM Comment: Continue atenolol. (10) Spinal stenosis Code(s): M48.00 - SPINAL STENOSIS, SITE UNSPECIFIED Comment: Supportive care. (11) DVT prophylaxis Code(s): WSR6960 - Comment: SCDs, given new finding of potential adenocarcinoma (concern for increased bleeding in mass) Status and Disposition: Inpatient admission. Anticipate LOS >2 days.
[2016-12-17] MEDS: Atorvastatin* 20 MG TAB PO SCH (17:56)
[2016-12-17] MEDS: Diltiazem TAB* 30 MG PO SCH ×2 (17:56→23:21)
--- NOTE | 2016-12-17 20:52 | CONS ---
GASTROENTEROLOGY CONSULT: DATE: 12/17/16 CONSULTING PHYSICIANS: Matias Jason, and Roberto Sahni, [place]. REASON FOR CONSULTATION: Long-term GERD and thickening of distal esophagus on CT scan obtained to do workup, presentation of chest pain and shortness of breath. HISTORY: This 86-year-old man, generally vibrant and healthy, developed shortness of breath and a nonspecific sense of feeling awful. He went to [facility] and was found to be in atrial fibrillation. He was transferred. Here since admission, he has been seen by Cardiology who has started amiodarone. Eventually, systemic anticoagulation is planned. His initial CT scan showed thickening of the distal esophagus. He has not been in any cardiorespiratory distress while at the hospital. PAST MEDICAL HISTORY: 1. Hypertension - many years. 2. Chronic GERD - on omeprazole 20 years. Dyspepsia recurs any time he stops it. He states that over the last couple of months, he has noted a little bit more difficulty swallowing, but nothing really gets hung up. He points to his throat. 3. Depression - apparently only imipramine that he has been taking helps him. It has been a number of years since anything else has been tried. 4. 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 5. Status post left knee replacement 13 years ago. 6. Left shoulder repair. 7. Appendectomy - age 22. MEDICATIONS: At home Imipramine 50 in the a.m., 150 h.s, Atenolol 25, Hydrochlorothiazide 12.5, Simvastatin 40 h.s, Omeprazole 20 mg b.i.d. ALLERGIES: He responds poorly to CODEINE. FAMILY HISTORY: His father was on insulin for many years and of complications of diabetes. His mother of CHF. He is the 7th of 10 siblings with only 1 brother still alive. He is not sure if any have had cancer. 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 He has 3 children. His son from [place] and [id number] are in the room. They state that they have been negotiating to get the patient and his to come to an assisted living facility near [place]. They have resisted that. The patient's is just starting peritoneal dialysis and he is struggling with handling that. REVIEW OF SYSTEMS: No history of vomiting, actual obstruction in the esophagus , gallstones, jaundice, hepatitis, syncope, MT, TB, fever, purulent sputum, or rectal bleeding. He does not believe he has had a colonoscopy in the family, believes they can corroborate that. He has no edema. EXAM: He is a healthy-appearing 86-year-old man appearing his stated age. He is hard of hearing. He is anicteric. Mucous membranes are a little dry. HEENT exam is otherwise unremarkable. He has no adenopathy. His lungs are clear. Heart sounds are irregular and without a murmur. His abdomen is flat, soft, and without focal tenderness. Rectal is symmetric, smooth, and there is gummy light brown stool sent for occult blood (negative) and there is no obvious prostate mass. Extremities show no edema. IMPRESSION: This 86-year-old man has had many years of gastroesophageal reflux disease and now reports having some swallowing changes during an admission for a fib. While reduction in salivary flow from his tricyclic antidepressants certainly could be a factor in this, the CAT scan suggests a problem in the lower esophagus and this needs to be investigated via upper endoscopy. The impression of lymphadenopathy is ominous. With heme-negative stool at this time , if there is a mass present, some cautious anticoagulation could be considered , though any possible oncologic treatment planning will have to be factored in. [id number]/[facility] #: [id number] TEDDY
--- NOTE | 2016-12-18 03:45 | PRO ---
DATE: 12/17/16 - ROOM #[id number] REFERRING PHYSICIAN: Roberto Mccallum, [place].* PROCEDURE PERFORMED: Upper gastrointestinal endoscopy and biopsy of esophageal mass from 34 to 40; CLOtest from gastric body. INDICATION: This 86-year-old man admitted with shortness of breath and found to be in atrial fibrillation. He is under-going a cardiac assessment. The CT of the chest noted thickening of the esophagus and possible lymphadenopathy. He has a long history of GERD on omeprazole for possibly 20 years. Informed consent was obtained from the patient and previous discussion had been held with his son and [id number] in the room. ENDOSCOPIST: Dr Weber MEDICATIONS: Midazolam 2, meperidine 25. FINDINGS: He is a surprisingly fit appearing older man, hard of hearing in no overt distress. He is in atrial fibrillation around 110. Abdomen is flat and nontender. EGD: Larynx - symmetric limited views. Esophagus - easily entered. The mucosa is normal in the upper and mid esophagus and then at around 31, there is a Clayton's stripe at 5 o'clock which then at 34 becomes an upwelling with a sessile deformity and a catalino mass by about 35 cm. An irregular mass, circumferential continues down to 40 cm at which point, there was a medium hiatal hernia with a hiatus at 43. The scope went through easily and there was no sense of obstruction per se. The area was a little bit friable. During the withdrawal phase of the procedure, biopsies were taken from 37, 35 and 34. Stomach - generally normal mucosa in the cardia, fundus, body and antrum. There is some minor papillation. There is no deformity. The pylorus has a redundant set of swirling folds and is narrow and resist intubation when initially approached and only insertion and ongoing pressure results in popping through the pylorus, which is therefore mildly stenotic. Duodenum - the bulb and the second through fourth portions appear normal. Pylorus is long and appears probably scarred, but the scope does through and there is no gastric retention noted. There was no preprocedure history of vomiting. IMPRESSION: 1. Hiatal hernia at 43, moderate. 2. Pyloric stenosis - mild. 3. Mild diffuse gastropathy - H. pylori suspected. 4. 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 Addendum: invasive adenocarcinoma [id number]/[facility] #: [id number] [facility]
[2016-12-18 06:08] LABS: Anion Gap 9 mmol/L (2-11); BUN/Creatinine Ratio 22.2 (8-20); Blood Urea Nitrogen 24 mg/dL (6-24); CO2 Carbon Dioxide 23 mmol/L (22-32); Calcium 8.5 mg/dL (8.6-10.3); Chloride 100 mmol/L (101-111); EGFR African American 83.6 (>60); Glucose 86 mg/dL (70-100); Magnesium 1.8 mg/dL (1.9-2.7); Potassium 3.7 mmol/L (3.5-5.0); Sodium 132 mmol/L (133-145)
[2016-12-18] MEDS ORDERED: Magnesium Sulfate 2 GM IV* 2 GM/50 ML BAG IVPB ONE (07:49)
[2016-12-18] MEDS: Atenolol TAB* 25 MG PO SCH (09:12)
[2016-12-18] MEDS: Diltiazem CD CAP* 120 MG PO SCH (09:12)
[2016-12-18] MEDS: Potassium Chlor TAB* 20 MEQ TAB.ER PO SCH ×3 (09:13→22:57)
[2016-12-18] MEDS: CMC:Imipramine (NF) 25 MG TAB PO SCH ×2 (09:13→22:58)
[2016-12-18] MEDS: Omeprazole CAP* 20 MG PO SCH ×2 (09:13→22:56)
[2016-12-18 09:38] LABS: Total Iron Binding Capacity 238 mcg/dL (250-450); Transferrin 170 mg/dL (203-362)
[2016-12-18 09:39] LABS: Iron < 15 ug/dL (50-212)
--- NOTE | 2016-12-18 10:24 | CONSULT ---
Consultation - Reason for Consultation Reason for Consultation: esophageal mass, likely malignant Ordering Provider: Shari Honeycutt Chief Complaint: feeling ill, found to be in afib w rvr History of Present Illness: 86 yo M in general good health presenting with SOB/weakness and found to be in afib w RVR and with an esophageal mass. Rajinder reports being in good health until he presented with generalized weakness and SOB and was found to be in afib. He was transfered from [facility]. He had a CTA on admission which revealed a mass in the distal esophagus with mild mediastinal adenopathy and tiny pulmonary nodules. He had an endoscopy yesterday which showed a circumferential mass from 35-40 cm, slightly friable, in the background of clear Clayton's esophagus. A biopsy was obtained. He does report in retrospect difficulty swallowing over the last several months, but has a vague description of this. He is not choking per se, not vomiting, just aware of the food in his esophagus. He has lost 26 pounds which he relates mainly to the stress of taking care of his who has recently become dialysis dependant, but has generally been in poor health over the last 2 years. He does have a history of chronic GERD and has been on BID PPI for years. 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 Allergies/Medications Medication: Acetaminophen (Tylenol Tab*) 650 mg PO Q4H PRN PRN Reason: pain/fever Atenolol (Tenormin Tab*) 25 mg PO DAILY [facility] Last Admin: 12/18/16 09:12 Dose: 25 mg Atorvastatin Calcium (Lipitor*) 20 mg PO QPM [facility] Last Admin: 12/17/16 17:56 Dose: 20 mg Diltiazem HCl (Cardizem Cd Cap*) 120 mg PO DAILY [facility] Last Admin: 12/18/16 09:12 Dose: 120 mg Imipramine HCl (Imipramine (Nf)) 50 mg PO DAILY [facility] Last Admin: 12/18/16 09:13 Dose: 50 mg Imipramine HCl (Imipramine (Nf)) 150 mg PO BEDTIME [facility] Last Admin: 12/17/16 21:29 Dose: 150 mg Morphine Sulfate (Morphine Inj (Syringe)*) 4 mg IV Q4H PRN PRN Reason: PAIN Last Admin: 12/17/16 00:33 Dose: 4 mg Omeprazole (Prilosec Cap*) 20 mg PO BID [facility] Last Admin: 12/18/16 09:13 Dose: 20 mg Ondansetron HCl (Zofran Inj*) 4 mg IV Q4H PRN PRN Reason: NAUSEA Last Admin: 12/15/16 22:52 Dose: 4 mg Potassium Chloride (Klor Con Er Tab*) 20 meq PO TID [facility] Last Admin: 12/18/16 09:13 Dose: 20 meq Allergies/Adverse Reactions: Allergies Allergy/AdvReac Type Severity Reaction Status Date / Time Codeine AdvReac Unknown GI Upset Verified 12/15/16 23:31 History - Past Medical History Other History: HTN. GERD. depression. right knee replacement. left knee replacement. left shoulder repair. appendectomy - Family History Other Family History: no fhx of cancer - Social History Other Social History: remote tobacco, quit 45 years ago. no excessive ETOH. 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 Review of Systems - Review of Systems Constitutional Symptoms: Positive: Weight Loss Dermatology: Positive: Normal HEENT: Positive: Normal Eyes: Positive: Normal Thyroid: Positive: Normal Pulmonary: Positive: Normal, Shortness of Breath Cardiology: Positive: Shortness of Breath Gastroenterology: Positive: Anorexia, Difficulty Swallowing Genital - Urinary: Positive: Normal Endocrinology: Positive: Normal Neurology: Positive: Normal Psychiatry: Positive: Depression Physical Exam - Physical Exam Physical Examination: Vital Signs Temp Pulse Resp BP Pulse Ox 97.5 F 117 18 94/61 97 12/18/16 07:32 12/18/16 07:32 12/18/16 08:00 12/18/16 07:32 12/18/16 07:32 sitting up in nad temporal wasting perr eomi op moist CTA but distant irr irr soft nt +bs no le edema scattered ecchymoses A+O x 3, nonfocal neurological exam Results - Lab Results Lab Results: 12/15/16 12/15/16 12/15/16 23:30 23:30 23:30 WBC 9.4 RBC 3.85 L Hgb 12.0 L Hct 36 L MCV 93 MCH 31 MCHC 33 RDW 14 Plt Count 207 MPV 8 Neut % (Auto) 82.9 Lymph % (Auto) 7.7 L [place] % (Auto) 9.2 H Eos % (Auto) 0.1 Baso % (Auto) 0.1 Absolute Neuts (auto) 7.8 H Absolute Lymphs (auto) 0.7 L Absolute Monos (auto) 0.9 H Absolute Eos (auto) 0 Absolute Basos (auto) 0 Absolute Nucleated RBC 0 Nucleated RBC % 0 INR (Anticoag Therapy) 1.29 H APTT 30.2 D-Dimer, Quantitative 277 H Sodium 135 Potassium 4.0 Chloride 105 Carbon Dioxide 24 Anion Gap 6 BUN 19 Creatinine 1.13 Est GFR ( Amer) 79.3 Est GFR (Non-Af Amer) 61.7 BUN/Creatinine Ratio 16.8 Glucose 111 H POC Glucose (mg/dL) Calcium 8.7 Magnesium Iron TIBC % Saturation Unsat Iron Binding Total Bilirubin 0.90 AST 13 ALT 9 Alkaline Phosphatase 67 Troponin I 0.03 Total Protein 6.7 Albumin 3.1 L Globulin 3.6 Albumin/Globulin Ratio 0.9 L 12/16/16 12/16/16 12/16/16 07:18 07:18 17:15 WBC RBC Hgb Hct MCV MCH MCHC RDW Plt Count MPV Neut % (Auto) Lymph % (Auto) [place] % (Auto) Eos % (Auto) Baso % (Auto) Absolute Neuts (auto) Absolute Lymphs (auto) Absolute Monos (auto) Absolute Eos (auto) Absolute Basos (auto) Absolute Nucleated RBC Nucleated RBC % INR (Anticoag Therapy) APTT 122.7 H* 45.4 H D-Dimer, Quantitative Sodium Potassium Chloride Carbon Dioxide Anion Gap BUN Creatinine Est GFR ( Amer) Est GFR (Non-Af Amer) BUN/Creatinine Ratio Glucose POC Glucose (mg/dL) Calcium Magnesium Iron TIBC % Saturation Unsat Iron Binding Total Bilirubin AST ALT Alkaline Phosphatase Troponin I 0.03 Total Protein Albumin Globulin Albumin/Globulin Ratio 12/17/16 12/17/16 12/17/16 02:06 02:06 02:06 WBC 8.6 RBC 3.75 L Hgb 11.5 L Hct 35 L MCV 92 MCH 31 MCHC 33 RDW 14 Plt Count 197 MPV 8 Neut % (Auto) 76.0 Lymph % (Auto) 12.4 L [place] % (Auto) 10.8 H Eos % (Auto) 0.5 Baso % (Auto) 0.3 Absolute Neuts (auto) 6.6 Absolute Lymphs (auto) 1.1 Absolute Monos (auto) 0.9 H Absolute Eos (auto) 0 Absolute Basos (auto) 0 Absolute Nucleated RBC 0 Nucleated RBC % 0 INR (Anticoag Therapy) APTT 63.5 H D-Dimer, Quantitative Sodium 131 L Potassium 3.6 Chloride 100 L Carbon Dioxide 23 Anion Gap 8 BUN 22 Creatinine 1.07 Est GFR ( Amer) 84.5 Est GFR (Non-Af Amer) 65.7 BUN/Creatinine Ratio 20.6 H Glucose 114 H POC Glucose (mg/dL) Calcium 8.5 L Magnesium 1.4 L Iron TIBC % Saturation Unsat Iron Binding Total Bilirubin AST ALT Alkaline Phosphatase Troponin I Total Protein Albumin Globulin Albumin/Globulin Ratio 12/17/16 12/17/16 12/18/16 10:42 17:11 05:10 WBC RBC Hgb Hct MCV MCH MCHC RDW Plt Count MPV Neut % (Auto) Lymph % (Auto) [place] % (Auto) Eos % (Auto) Baso % (Auto) Absolute Neuts (auto) Absolute Lymphs (auto) Absolute Monos (auto) Absolute Eos (auto) Absolute Basos (auto) Absolute Nucleated RBC Nucleated RBC % INR (Anticoag Therapy) APTT 54.0 H D-Dimer, Quantitative Sodium 132 L Potassium 3.7 Chloride 100 L Carbon Dioxide 23 Anion Gap 9 BUN 24 Creatinine 1.08 Est GFR ( Amer) 83.6 Est GFR (Non-Af Amer) 65.0 BUN/Creatinine Ratio 22.2 H Glucose 86 POC Glucose (mg/dL) 84 Calcium 8.5 L Magnesium 1.8 L Iron < 15 L TIBC 238 L % Saturation 6 L Unsat Iron Binding [id number] Total Bilirubin AST ALT Alkaline Phosphatase Troponin I Total Protein Albumin Globulin Albumin/Globulin Ratio Assessment and Plan Impression: 87 yo M with a history of GERD presening with afib w RVR and found on imaging to have an esophageal mass, which visually is consistent with cancer. I have discussed this with Rajinder and his family at length. This most certainly represents an adenocarcinoma given the location and Clayton's. At this point he will need a full staging work up, starting with a PET/CT. If there only localized disease he may benefit from an EUS for staging, though honestly is not likely to be a surgical candidate and so it would be reasonable with the extent of disease visually to consider combined modality therapy with chemoRT ( low dose weekly carbo/taxol/RT). I am significantly concerned about his ability to manage this AND provide total care for his . His family has been trying to get him to relocate to [place], which I think is completely reasonable and I can set him up with Dr. Donis there if necessary. Alternatively they could come closer to [place]. Either way I will try to expedite a PET scan next week and see him back to discuss final recommendations. He should follow up in my office on 12/26 at 11 am. My office will call him with the PET time
[2016-12-18 10:39] LABS: Vitamin B12 483 pg/mL (180-914)
[2016-12-18] MEDS ORDERED: Atenolol TAB* 25 MG PO ONE (14:15)
[2016-12-18] MEDS: Morphine INJ* 4 MG/ML 1 ML CARPUJECT IV PRN (16:50)
[2016-12-18] MEDS: Atorvastatin* 20 MG TAB PO SCH (17:21)
--- NOTE | 2016-12-18 18:34 | PN ---
Subjective Date of Service: 12/18/16 Interval History: This is an 86 yo gentleman admitted with rapid afib who underwent cardioversion and subsequently returned to afib, rate is ~100 bpm. Patient reports no CP, palp, or SOB, no n/v. An esophageal mass was recognized on CT with assoc LAD and pt underwent EGD yesterday by Dr Weber, the presence of the mass was confirmed and biopsy path is pending. Patient was seen by oncologist, Dr Tinoco, this am. This evening, patient reported a sudden onset of severe RLQ abdominal pain. Pain is in the R inguinal region. Denies hematuria. Denies radiation of the pain. No recent diarrhea, last BM was this am. No n/v. Objective Active Medications: Acetaminophen (Tylenol Tab*) 650 mg PO Q4H PRN PRN Reason: pain/fever Apixaban (Eliquis*) 5 mg PO BID [facility] Atenolol (Tenormin Tab*) 50 mg PO DAILY [facility] Atorvastatin Calcium (Lipitor*) 20 mg PO QPM [facility] Last Admin: 12/18/16 17:21 Dose: 20 mg Diltiazem HCl (Cardizem Cd Cap*) 120 mg PO DAILY [facility] Last Admin: 12/18/16 09:12 Dose: 120 mg Imipramine HCl (Imipramine (Nf)) 50 mg PO DAILY [facility] Last Admin: 12/18/16 09:13 Dose: 50 mg Imipramine HCl (Imipramine (Nf)) 150 mg PO BEDTIME [facility] Last Admin: 12/17/16 21:29 Dose: 150 mg Morphine Sulfate (Morphine Inj (Syringe)*) 4 mg IV Q4H PRN PRN Reason: PAIN Last Admin: 12/18/16 16:50 Dose: 4 mg Omeprazole (Prilosec Cap*) 20 mg PO BID [facility] Last Admin: 12/18/16 09:13 Dose: 20 mg Ondansetron HCl (Zofran Inj*) 4 mg IV Q4H PRN PRN Reason: NAUSEA Last Admin: 12/15/16 22:52 Dose: 4 mg Potassium Chloride (Klor Con Er Tab*) 20 meq PO TID [facility] Last Admin: 12/18/16 14:02 Dose: 20 meq Vital Signs: Temp Pulse Resp BP Pulse Ox 97.5 F 114 19 103/72 100 12/18/16 14:42 12/18/16 14:42 12/18/16 16:50 12/18/16 14:42 12/18/16 14:42 Oxygen Devices in Use Now: None Appearance: This am, patient appeared well. But this evening he was obviously very uncomfortable, clutching his RLQ Respiratory: Symmetrical Chest Expansion and Respiratory Effort, Clear to Auscultation Cardiovascular: NL Sounds; No Murmurs; No JVD, - - irregular rhythm Abdominal: - - TTP RLQ, BS present, mild CVA TTP Extremities: No Edema Neurological: Alert and Oriented x 3 Result Diagrams: 12/17/16 02:06 12/18/16 05:10 Microbiology and Other Data: Microbiology 12/17/16 16:00 CLOtest - Final Gastric Antrum 12/17/16 16:00 Stool Gross Appearance - Final Stool Stool Occult Blood ([facility]) - Final Assess/Plan/Problems-Billing Assessment: Mr. Patterson is an 86 yo male with a PMH of HTN, HLD, compression fractures, CKD stage III, depression, GERD, spinal stenosis, and paroxysmal SVT who was transferred from [place] for evaluation and treatment of chest pain and new atrial fibrillation; incidental finding also made of mediastinal lymphadenopathy , esophageal thickening and concern for mass. - Patient Problems (1) Atrial fibrillation with rapid ventricular response Comment: s/p cardioversion 12/16, but now back to afib Rate ~100 bpm, seems to be tolerating the rhythm fairly well Plans for repeat cardioversion have been canceled due to finding of esophageal mass Will plan to increase atenolol further Start Eliquis, which onc is in agreement with (2) Esophageal mass Comment: With assoc mediastinal LAD S/p EGD with path pending, very concerning for malignancy Seen by Dr Tinoco today Patient requires PET/CT which will be arranged by Dr Tinoco's office (3) Abdominal pain Comment: Sudden onset of severe RLQ abd pain this evening of unknown etiology Treating pain CT abd/pelvis and UA pending ?ureteral stone or inguinal hernia (4) GERD (gastroesophageal reflux disease) Comment: Continue PPI. (5) HLD (hyperlipidemia) Comment: Continue statin. (6) HTN (hypertension) Comment: Normotensive, continue atenolol and diltiazem. (7) History of paroxysmal supraventricular tachycardia Comment: Continue atenolol. (8) Major depressive disorder Comment: Continue imipramine Patient is quite emotional with this news of potential malignancy, treatment should be re-evaulated by PCP (9) Spinal stenosis Comment: Supportive care. Status and Disposition: Continue inpatient stay, depending on abdominal pain and CT results, patient may be appropriate for dc tomorrow. Social work consult requested to discuss appropriate care measures for the patient and his . He is total care dependent and does home PD. Their children are in [place], they may benefit from relocating there vs hiring home health aides in their current home.
--- NOTE | 2016-12-18 19:14 | RAD ---
Indication: Right lower quadrant pain. CT of the abdomen and pelvis was performed without oral or IV contrast administration. Coronal and sagittal reconstructed images were obtained. The lung bases demonstrates moderate-sized bilateral pleural effusion with bibasilar atelectasis. Heart demonstrates cardiomegaly and a small pericardial effusion. Liver is normal in size. Area of typical focal fatty infiltration is noted in the anterior medial segment of left lobe of liver. Spleen is normal in size. Pancreas images no obvious mass or pancreatic ductal dilatation. Common duct is not dilated. The gallbladder demonstrates calcified gallstone however no pericholecystic fluid or wall thickening is noted. No adrenal masses are noted. The kidneys demonstrates no hydronephrosis. Likely left renal cyst is noted. This is noted in the midpole of the left kidney. There is a moderate-sized hiatal hernia noted. There are no dilated loops of bowel noted. Atherosclerotic aorta without evidence of aneurysmal dilatation is noted. The colon is filled with air and stool. The urinary bladder is markedly distended. The prostate is prominent in size. No hernias are noted. Common iliac arteries are otherwise unremarkable. No pelvic adenopathy is noted. Multilevel degenerative disc disease is noted. Mild compression of L1 is noted age of which is undetermined. IMPRESSION: NO EVIDENCE OF OBSTRUCTIVE UROPATHY IS NOTED. TYPICAL FOCAL FATTY INFILTRATION IN THE MEDIAL LEFT LOBE OF LIVER.. CHOLELITHIASIS WITHOUT DEFINITE BILIARY DUCT DILATATION. BILATERAL PLEURAL EFFUSION AND SMALL PERICARDIAL EFFUSION. HIATAL HERNIA IS NOTED. MARKEDLY DISTENDED URINARY BLADDER IS IDENTIFIED. MULTILEVEL DEGENERATIVE DISC DISEASE OF THE LUMBAR SPINE IS PRESENT.
[2016-12-18] MEDS: Apixaban* 5 MG TAB PO SCH (22:56)
[2016-12-19 08:37] LABS: Calcium 8.4 mg/dL (8.6-10.3); Magnesium 1.8 mg/dL (1.9-2.7); Potassium 3.9 mmol/L (3.5-5.0)
[2016-12-19] MEDS ORDERED: Atenolol TAB* 50 MG PO SCH (09:00)
[2016-12-19] MEDS ORDERED: Magnesium Oxide TAB* 400 MG PO SCH (10:00)
[2016-12-19] MEDS: Diltiazem CD CAP* 120 MG PO SCH (10:03)
[2016-12-19] MEDS: Potassium Chlor TAB* 20 MEQ TAB.ER PO SCH (10:03)
[2016-12-19] MEDS: Apixaban* 5 MG TAB PO SCH (10:03)
[2016-12-19] MEDS: CMC:Imipramine (NF) 25 MG TAB PO SCH (10:03)
[2016-12-19] MEDS: Omeprazole CAP* 20 MG PO SCH (10:04)
[2016-12-19 11:24] VITALS: BP 101/72
--- NOTE | 2016-12-19 22:44 | DS ---
DISCHARGE SUMMARY: DATE OF ADMISSION: 12/16/16 DATE OF DISCHARGE: 12/19/16 PRIMARY CARE PROVIDER: Not listed. CONSULTING OILSEED MEAT PRESSER: Dr. Dexter Weber. CONSULTING ELECTRICAL SUPERVISOR: Dr. Cirilo Grace. CONSULTING ONCOLOGIST: Dr. Hailey Tinoco. DISCHARGING PROVIDER: YELENA Murillo. SUPERVISING PHYSICIAN: Dr. Janine Aquino.* (DICTATED BY YELEAN MURILLO) PRIMARY DISCHARGE DIAGNOSES: 1. 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 2. New atrial fibrillation with rapid ventricular response. SECONDARY DISCHARGE DIAGNOSES: 1. Hypertension. 2. Hyperlipidemia. 3. Iron deficiency with mild anemia. 4. Hypomagnesemia. DISCHARGE MEDICATIONS: 1. Eliquis 5 mg p.o. b.i.d. 2. Atenolol 50 mg p.o. daily. 3. Diltiazem 120 mg p.o. daily. 4. Ferrous sulfate 325 mg p.o. daily. 5. Imipramine 50 mg in the morning and 150 mg at bedtime. 6. Magnesium oxide 400 mg p.o. b.i.d. 7. Omeprazole 20 mg p.o. b.i.d. 8. Simvastatin 40 mg p.o. daily. Medication changes: 1. Increased atenolol. 2. Started diltiazem. 3. Started Eliquis. 4. Started magnesium. 5. Started ferrous sulfate. HOSPITAL IMAGIN. CTA of the chest 12/16/16 shows evidence of PE. There is multiple nonspecific pulmonary parenchymal nodules and what appeared to be mediastinal adenopathy with largest measuring 3.4 cm in diameter. Also of note is thickened distal esophagus seen in conjunction with hiatal hernia. 2. Nuclear stress test, 12/17/16 is read as a low risk study without evidence of ischemia or infarct. 3. CT of the abdomen and pelvis without contrast shows no specific pathology with the exception of markedly distended urinary bladder. 4. EKG at admission 12/15/16 shows what is likely atrial flutter with rate of approximately 150 beats per minute. 5. Transthoracic echocardiogram 12/16/16 shows normal left ventricular ejection fraction of 55% to 60% without any wall motion abnormalities. There is mild-to- moderate mitral regurg. No other significant valvular disease noted. A small pericardial effusion appreciated. PATHOLOGY: Dated 12/17/16 from the distal esophagus is read as invasive adenocarcinoma, moderately differentiated. HOSPITAL COURSE: This is a very pleasant 86-year-old gentleman with history of hypertension and hyperlipidemia and a remote history of what sounds to be paroxysmal atrial fibrillation, who presented to the [facility] with complaints of palpitations and nausea. He was found to be in rapid atrial fibrillation and was transferred to [facility] for further treatment and cardioversion. The patient was seen by boat repairer to Dr. Grace, who did complete cardioversion on 12/16/16. The patient was successfully converted to sinus rhythm and then subsequently slipped back to atrial fibrillation. Plan initially was to repeat cardioversion, but there was concern about distal esophageal thickening appreciated on CT scan. The patient underwent EGD by Dr. Dexter Weber, who identified obvious mass in the distal esophagus. CT imaging demonstrated associated mediastinal lymphadenopathy. Biopsy was taken at the time of EGD and final pathology available just prior to discharge as moderately differentiated adenocarcinoma. Dr. Hailey Tinoco, oncologist consulted during patient's hospital stay and the patient will be setup for outpatient PET scan and subsequent followup for appropriate staging and treatment planning. During the patient's hospital stay, the patient remained in atrial fibrillation following his first cardioversion. He was eventually rate controlled with diltiazem and atenolol. Initiated anticoagulation with Eliquis. Discussed this with oncology as well as cardiology. Oncology does not feel that this would interfere with future treatments. The patient is aware of potentially higher bleeding risk, which due to the presence of his malignancy, he is also at higher clotting risk. The patient was otherwise asymptomatic with rate controlled atrial fibrillation and repeat cardioversion was not attempted. Of note, from social perspective, the patient is the primary caregiver for his , who is total care dependent and dependent on peritoneal dialysis, which she completes at home on a nightly basis. The patient will likely require extensive treatment, which will likely involve daily radiation therapy for approximately 6 weeks. There is concern in regards to patient's ability to get himself to appointments and still be able to care for his as they live in [place] and would have to commute significant distance in order to receive appropriate therapy. The patient's son and daughter both lives in [place] and have been involved in his care. Discussion was initiated in terms of moving to [place] or augmenting with home health aides in their current home in [place]. Also of note, the night prior to patient's discharge, he had a sudden onset of right lower quadrant abdominal pain mostly in the inguinal region. It started as an occasional sharp shooting pain and became more severe and persistent. The patient tried to get up and walk around and the pain persisted. He had some mild associated CVA tenderness. No hematuria. Denied associated nausea or vomiting. No recent diarrhea and his last bowel movement had been earlier that day. He underwent CT scan of the abdomen and pelvis without contrast for concern of possible incarcerated hernia versus an ureteral stone. CT was benign with the exception of a markedly distended urinary bladder. When the patient returned from CT scan, he was able to urinate without significant postvoid residual. Catheterization was not required and his pain subsequently resolved and did not recur. DISPOSITION: The patient is being discharged to home where he lives with his . The patient's son and daughter are working on arranging home health aide and/or relocation to [place], but it seems like they are leaning towards augmenting care in their current home. He has an outpatient PET/CT scheduled for early next week with subsequent oncology followup with Dr. Hailey Tinoco on 12/26/16. The patient's atenolol was increased, started on diltiazem and initiated Eliquis as well as iron and magnesium supplementation. YELENA MURILLO CC: Dr. Hailey Tinoco * [id number]/[facility] #: [id number] TEDDY
== END 2016-12-19 15:05 | disposition home or self-care (01) | DRG 309 ==
LOC: MEDTELE 22:16
PROVIDERS: ADMIT Internal Medicine; ATTEND Internal Medicine
PROC: 5A2204Z Restoration of Cardiac Rhythm, Single (ICD-10-PCS; principal; 2016-12-16 15:00)
PROC: 0DB68ZX Excision of Stomach, Via Natural or Artificial Opening Endoscopic, Diagnostic (ICD-10-PCS; 2016-12-17)
PROC: 0DB38ZX Excision of Lower Esophagus, Via Natural or Artificial Opening Endoscopic, Diagnostic (ICD-10-PCS; 2016-12-17)
DX: I48.0 Paroxysmal atrial fibrillation (principal); I31.3 Pericardial effusion (noninflammatory); C15.5 Malignant neoplasm of lower third of esophagus; K31.1 Adult hypertrophic pyloric stenosis; E83.42 Hypomagnesemia; N18.3 Chronic kidney disease, stage 3 (moderate); D50.9 Iron deficiency anemia, unspecified; N32.89 Other specified disorders of bladder; I12.9 Hypertensive chronic kidney disease with stage 1 through stage 4 chronic kidney disease, or unspecified chronic kidney disease; E78.5 Hyperlipidemia, unspecified; K44.9 Diaphragmatic hernia without obstruction or gangrene; I34.0 Nonrheumatic mitral (valve) insufficiency; Z96.653 Presence of artificial knee joint, bilateral; F32.9 Major depressive disorder, single episode, unspecified; M48.00 Spinal stenosis, site unspecified; R91.8 Other nonspecific abnormal finding of lung field; K22.70 Barrett's esophagus without dysplasia; K31.9 Disease of stomach and duodenum, unspecified; Z79.01 Long term (current) use of anticoagulants; Z88.5 Allergy status to narcotic agent; Z87.891 Personal history of nicotine dependence; Z86.79 Personal history of other diseases of the circulatory system; Z83.3 Family history of diabetes mellitus; Z82.49 Family history of ischemic heart disease and other diseases of the circulatory system
CPT/HCPCS: 36415; 71275; 74176; 78452; 80048; 80053; 82272; 82607; 82728; 83540; 83550; 83735; 84484; 85025; 85379; 85610; 85730; 87077; 88271; 88274; 88291; 88305; 88342; 92960; 93005; 93017; 93306; 99223; A9270-GY; A9502; J0282; J1644; J2175; J2250; J2270; J2310; J2405; J2785; J3010; J3475; J3490; Q9967

== ENCOUNTER 2017-02-04 16:10 | Inpatient (IN) | payer MEDICARE ==
[2017-02-04] MEDS ORDERED: diPHENhydraMINE PO* 25 MG PO PRN (18:04)
[2017-02-04] MEDS ORDERED: [UNRECOGNIZED DRUG - OTHER] IV SCH (19:00)
[2017-02-04 19:57] LABS: Hematocrit 31 % (42-52); Hemoglobin 10.1 g/dl (14.0-18.0); Mean Corpuscular HGB Conc 33 g/dl (31-36); Mean Corpuscular Hemoglobin 30 pg (27-31); Mean Corpuscular Volume 92 fL (80-94); Mean Platelet Volume 9 um3 (7.4-10.4); Red Blood Count 3.35 10^6/ul (4.0-5.4); Red Cell Distribution Width 14 % (10.5-15)
[2017-02-04 19:58] LABS: Comments Flag Yes; White Blood Count 2.3 10^3/ul (3.5-10.8)
[2017-02-04] MEDS: Ondansetron INJ* 2 MG/ML VIAL IV SCH (20:04)
[2017-02-04 20:08] LABS: Albumin 2.8 g/dL (3.2-5.2); BUN/Creatinine Ratio 21.1 (8-20); Calcium 8.6 mg/dL (8.6-10.3); EGFR African American 65.7 (>60); EGFR Non-African American 51.1 (>60); Globulin 3.7 g/dL (2-4); Magnesium 1.8 mg/dL (1.9-2.7); Potassium 3.8 mmol/L (3.5-5.0); Total Bilirubin 0.4 mg/dL (0.2-1.0); Total Protein 6.5 g/dL (6.4-8.9)
[2017-02-04] MEDS: Omeprazole CAP* 20 MG PO SCH (21:42)
[2017-02-04] MEDS: Atorvastatin* 20 MG TAB PO SCH (21:42)
[2017-02-04] MEDS: Magnesium Oxide TAB* 400 MG PO SCH (21:42)
[2017-02-04] MEDS: Apixaban* 5 MG TAB PO SCH (21:42)
[2017-02-05] MEDS: Ondansetron INJ* 2 MG/ML VIAL IV SCH ×3 (02:17→17:14)
[2017-02-05] MEDS: NS 0.9% 1000 ML* 1,000 ML IV SCH ×2 (07:30→17:14)
[2017-02-05] MEDS ORDERED: Potassium Chlor TAB* 20 MEQ TAB.ER PO SCH (09:00)
[2017-02-05] MEDS ORDERED: Potassium Chloride LIQUID* 20 MEQ PACKET PO SCH (09:10)
[2017-02-05] MEDS: Omeprazole CAP* 20 MG PO SCH ×2 (09:23→19:55)
[2017-02-05] MEDS: Magnesium Oxide TAB* 400 MG PO SCH ×2 (09:23→19:55)
[2017-02-05] MEDS: Diltiazem CD CAP* 120 MG PO SCH (09:23)
[2017-02-05] MEDS: Apixaban* 5 MG TAB PO SCH ×2 (09:45→21:27)
[2017-02-05 10:16] LABS: Hematocrit 29 % (42-52); Hemoglobin 9.5 g/dl (14.0-18.0); Mean Corpuscular HGB Conc 33 g/dl (31-36); Mean Corpuscular Hemoglobin 31 pg (27-31); Mean Corpuscular Volume 92 fL (80-94); Mean Platelet Volume 9 um3 (7.4-10.4); Red Blood Count 3.12 10^6/ul (4.0-5.4); Red Cell Distribution Width 14 % (10.5-15)
[2017-02-05 10:21] LABS: Comments Flag Yes
[2017-02-05] MEDS ORDERED: Iodixanol* (CONTRAST) 320 MG/ML 100 ML SDV IV ONE (10:34)
[2017-02-05 10:41] LABS: Albumin 2.5 g/dL (3.2-5.2); BUN/Creatinine Ratio 21.2 (8-20); Calcium 8.2 mg/dL (8.6-10.3); EGFR African American 79.3 (>60); EGFR Non-African American 61.7 (>60); Globulin 3.2 g/dL (2-4); Magnesium 1.6 mg/dL (1.9-2.7); Potassium 3.9 mmol/L (3.5-5.0); Total Bilirubin 0.3 mg/dL (0.2-1.0); Total Protein 5.7 g/dL (6.4-8.9)
--- NOTE | 2017-02-05 15:44 | RAD ---
HISTORY: confusion COMPARISONS: None TECHNIQUE: Multiple contiguous axial CT scans were obtained of the head with and without intravenous contrast. FINDINGS: HEMORRHAGE/INFARCT: There is no hemorrhage or acute infarct. MASSES/SHIFT: There is no mass or shift. EXTRA-AXIAL SPACES: There are no extra-axial fluid collections. SULCI AND VENTRICLES: The sulci and ventricles are normal in size and position for the patient's stated age. CEREBRUM: There is hypoattenuation of the periventricular and subcortical white matter. BRAINSTEM: There are no focal parenchymal abnormalities. CEREBELLUM: There are no focal parenchymal abnormalities. VESSELS: The vessels are grossly normal. PARANASAL SINUSES: The paranasal sinuses are clear. ORBITS: The orbits are unremarkable. BONES AND SOFT TISSUE: No bone or soft tissue abnormalities are noted. OTHER: There is no abnormal enhancement. IMPRESSION: 1. NO ACUTE INTRACRANIAL PATHOLOGY. 2. CHRONIC SMALL VESSEL ISCHEMIC CHANGES. 3. NO ABNORMAL ENHANCEMENT.
[2017-02-05] MEDS: Atorvastatin* 20 MG TAB PO SCH (17:26)
[2017-02-05] MEDS: Metoprolol Tartrate TAB* 25 MG PO SCH (17:57)
[2017-02-05] MEDS ORDERED: Potassium Chloride LIQUID* 20 MEQ PACKET PO ONE (18:00)
[2017-02-05] MEDS ORDERED: Potassium Chlor TAB* 10 MEQ TAB.ER PO ONE (18:00)
[2017-02-05] MEDS ORDERED: Metoprolol Tartrate TAB* 25 MG PO ONE (19:28)
--- NOTE | 2017-02-05 22:05 | CONS ---
CARDIOLOGY CONSULTATION: DATE OF CONSULT: 02/05/17 REASON FOR CONSULTATION: Atrial fibrillation. HISTORY OF PRESENT ILLNESS: The patient is an 86-year-old gentleman with esophageal adenocarcinoma, undergoing chemotherapy. He was admitted yesterday for change in mentation. At infusion, he was confused and had fallen twice and not following commands well. The patient's rate and rhythm on exam were felt to be regular yesterday on admission; although no EKG was checked, but today, his rate was rapid and irregular and EKG confirmed he was in atrial fibrillation with a rapid ventricular rate. The patient was admitted in November with atrial fibrillation and underwent DANYEL - guided cardioversion at that time. The patient has been on Eliquis since per verbal discussion with Dr. Hailey Tinoco. When I saw the patient, he had been moved to telemetry and was still tachycardic. He said he has had palpitations for many years. He was vague stating they may have increased recently, but he felt fine now. His answers did not suggest that he is currently a reliable historian. PAST MEDICAL HISTORY: 1. Based on medical records, the patient has a past medical history of esophageal cancer followed by Dr. 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 2. Hypertension. 3. Chronic GERD. 4. Paroxysmal atrial fibrillation. 5. History of dyslipidemia. 6. Peripheral neuropathy. PAST SURGICAL HISTORY: Includes: 1. Total knee replacement. 2. Shoulder repair. 3. Appendectomy. OUTPATIENT MEDICATIONS: Include: 1. Eliquis 5 mg b.i.d. (uncertain if he has been on this for extended period of time). 2. Cartia XT 120 mg. 3. Imipramine 50 mg a day. 4. Magnesium oxide 400 mg a day. 5. Omeprazole 20 mg b.i.d. 6. Potassium chloride 20 mEq a day. 7. Scopolamine patch. 8. Zocor 40 mg a day. 9. Trazodone 25 mg q.h.s. p.r.n. 10. Zofran p.r.n. ALLERGIES: Include CODEINE and COUMADIN. FAMILY HISTORY: Not able to be obtained from old charts or the patient. SOCIAL HISTORY: The patient stopped smoking 40 years ago. No history of significant alcohol use and no recreational drug use. 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 REVIEW OF SYSTEMS: Unable to be obtained due to poor historical release from the patient. PHYSICAL EXAM: The patient is 5 feet 10 inches, weighs 154 pounds with a BMI of 22. General Appearance: Lean, elderly gentleman, appears comfortable lying flat, in no acute distress. Psychologically vague. Appears a little disoriented, but pleasant and tries to cooperate. Skin: Warm and dry. No appreciable cyanosis. HEENT: Mucous membranes moist. Neck without appreciable increase in JVP. Breath sounds were clear. No wheezing, rales, or rhonchi. Coronary: S1, S2. Irregularly irregular and tachycardic without murmurs or rubs. Abdomen: No epigastric discomfort. Active bowel sounds and soft without hepatosplenomegaly appreciated and lower extremities were warm and free of edema. DIAGNOSTIC STUDIES/LAB DATA: A 12-lead ECG today confirms that he is in atrial fibrillation with a rapid ventricular rate of 135 beats a minute, QRS axis of + 60, normal interventricular conduction times, poor R-wave progression, COPD versus possible old anteroseptal GA. Low volts in the limb leads. Compared with his ECG of 12/16/16, AFib replaces normal sinus rhythm with PACs. Labs: On arrival yesterday, white count 2.3, hemoglobin 10, platelets 133. Today, white count 1, hemoglobin 9.5, and platelets 101. On arrival, sodium 130 , potassium 3.8. Today, sodium 134, potassium 3.9, chloride 103, BUN 24, creatinine 1.13, glucose 79, ALT of 11. Brain CT performed today showed no acute intracranial pathology. Chronic small vessel ischemic changes noted. No evidence of KINESIOLOGIST bleed. From 12/17/16, a nuclear stress test was considered low risk, normal perfusion, and ejection fraction of 64%. Transthoracic echocardiogram showed an ejection fraction of 55% to 60%, mild hypertrophy of the basilar septum, normal right ventricular function, aortic valve sclerosis with good aortic valve function, mild to moderate mitral insufficiency, mild tricuspid insufficiency, and normal PA pressures. He had a small pericardial effusion at that time. SUMMARY: Mr. Patterson is an 86-year-old gentleman being treated for esophageal adenocarcinoma with a change in mentation. He is anemic and appeared mildly dehydrated on admission with hyponatremia and hypomagnesemia. He also has evidence of malnutrition with low albumin (2.5). Overnight, he had the scopolamine patch and trazodone stopped, but he also was found in atrial fibrillation with a rapid ventricular rate. He is at potential risk for embolic stroke if he has been non compliant with Eliquis. I added metoprolol to improve rate control. I proposed that we either cardiovert or DANYEL-guided cardiovert the patient in the morning to try to restore sinus rhythm and initiate an antiarrhythmic. Options would include amiodarone as it is efficacious and safe on the short term , but he may also be a candidate for Multaq or low-dose sotalol. Further recommendations will be made pending his response to the above measures. Optimization of potassium and magnesium will help maintain sinus rhythm and ensuring there is no hypoxia with sleep would also be advisable. [id number]/[facility] #: [id number] TEDDY
[2017-02-06] MEDS: Metoprolol Tartrate TAB* 25 MG PO SCH ×2 (00:01→05:06)
[2017-02-06] MEDS: NS 0.9% 1000 ML* 1,000 ML IV SCH ×2 (00:56→10:01)
[2017-02-06] MEDS: Ondansetron INJ* 2 MG/ML VIAL IV SCH ×3 (02:31→17:14)
[2017-02-06 05:18] LABS: Hematocrit 30 % (42-52); Mean Corpuscular HGB Conc 33 g/dl (31-36); Mean Corpuscular Hemoglobin 31 pg (27-31); Mean Corpuscular Volume 93 fL (80-94); Mean Platelet Volume 8 um3 (7.4-10.4); Red Blood Count 3.23 10^6/ul (4.0-5.4); Red Cell Distribution Width 14 % (10.5-15)
[2017-02-06 05:19] LABS: Comments Flag Yes; White Blood Count 1.1 10^3/ul (3.5-10.8)
[2017-02-06 05:20] LABS: Add Diff/Slide Review? Slide Review Added
[2017-02-06 05:34] LABS: BUN/Creatinine Ratio 17.9 (8-20); Calcium 8.1 mg/dL (8.6-10.3); EGFR African American 85.4 (>60); EGFR Non-African American 66.4 (>60)
[2017-02-06 07:57] LABS: Magnesium 1.6 mg/dL (1.9-2.7)
[2017-02-06] MEDS ORDERED: Magnesium Sulf 4 GM/100 ML IV* 4,000 MG/100 ML BAG IVPB ONE (08:03)
--- NOTE | 2017-02-06 08:03 | PN ---
Progress Note - Progress Note SOAP: Subjective: very emotional this am. tearful about not remembering events that lead up to hospitalization. completely oriented to me this am. awaiting DANYEL/ cardioversion. last BM yesterday. very thirsty Objective: Vital Signs Temp Pulse Resp BP Pulse Ox 97.6 F 102 16 113/88 98 02/06/17 07:30 02/06/17 07:30 02/06/17 07:30 02/06/17 07:30 02/06/17 07:30 lying flat in bed in nad perr eomi op dry lips dry CTA distant heart sounds soft nt +bs no le edema mild cracking thumbs (chronic per patient) A+O x 3, nonfocal neurological exam Laboratory Results - last 24 hr 02/05/17 02/05/17 02/06/17 08:10 08:10 05:04 WBC 1.0 L 1.1 L RBC 3.12 L 3.23 L Hgb 9.5 L 10.0 L Hct 29 L 30 L MCV 92 93 MCH 31 31 MCHC 33 33 RDW 14 14 Plt Count 101 L 125 L MPV 9 8 Neut % (Auto) 73.5 Lymph % (Auto) 10.2 L [place] % (Auto) 14.9 H Eos % (Auto) 0.9 Baso % (Auto) 0.5 Absolute Neuts (auto) 0.8 L Absolute Lymphs (auto) 0.1 L Absolute Monos (auto) 0.2 Absolute Eos (auto) 0 Absolute Basos (auto) 0 Absolute Nucleated RBC 0 Nucleated RBC % 0.4 Sodium 134 Potassium 3.9 Chloride 103 Carbon Dioxide 26 Anion Gap 5 BUN 24 Creatinine 1.13 Est GFR ( Amer) 79.3 Est GFR (Non-Af Amer) 61.7 BUN/Creatinine Ratio 21.2 H Glucose 79 Calcium 8.2 L Magnesium 1.6 L Total Bilirubin 0.30 AST 22 ALT 11 Alkaline Phosphatase 54 Total Protein 5.7 L Albumin 2.5 L Globulin 3.2 Albumin/Globulin Ratio 0.8 L 02/06/17 05:04 WBC RBC Hgb Hct MCV MCH MCHC RDW Plt Count MPV Neut % (Auto) Lymph % (Auto) [place] % (Auto) Eos % (Auto) Baso % (Auto) Absolute Neuts (auto) Absolute Lymphs (auto) Absolute Monos (auto) Absolute Eos (auto) Absolute Basos (auto) Absolute Nucleated RBC Nucleated RBC % Sodium 134 Potassium 5.0 Chloride 106 Carbon Dioxide 24 Anion Gap 4 BUN 19 Creatinine 1.06 Est GFR ( Amer) 85.4 Est GFR (Non-Af Amer) 66.4 BUN/Creatinine Ratio 17.9 Glucose 98 Calcium 8.1 L Magnesium Total Bilirubin AST ALT Alkaline Phosphatase Total Protein Albumin Globulin Albumin/Globulin Ratio Apixaban (Eliquis*) 5 mg PO BID [facility] Last Admin: 02/05/17 21:27 Dose: 5 mg Atorvastatin Calcium (Lipitor*) 20 mg PO QPM [facility] Last Admin: 02/05/17 17:26 Dose: 20 mg Diltiazem HCl (Cardizem Cd Cap*) 120 mg PO DAILY [facility] Last Admin: 02/05/17 09:23 Dose: 120 mg Diphenhydramine HCl (Benadryl Po*) 25 mg PO BEDTIME PRN PRN Reason: SLEEP Last Admin: 02/05/17 00:03 Dose: 25 mg Heparin Sodium (Porcine) (Heparin Flush Port (Ivad)) 5 ml FLUSH DAILY [facility] PRN Reason: Protocol Last Admin: 02/05/17 09:39 Dose: Not Given Sodium Chloride (Ns 0.9% 1000 Ml*) 1,000 mls @ 125 mls/hr IV PER RATE [facility] Last Admin: 02/06/17 00:56 Dose: 125 mls/hr Magnesium Oxide (Magox 400 Tab*) 400 mg PO BID [facility] Last Admin: 02/05/17 19:55 Dose: 400 mg Metoprolol Tartrate (Lopressor Tab*) 25 mg PO Q6H [facility] Last Admin: 02/06/17 05:06 Dose: 25 mg Pto: Continuous 5- (Fluorouracil Pump) 1 dose IV .CONTINUOUS [facility] Omeprazole (Prilosec Cap*) 20 mg PO BID [facility] Last Admin: 02/05/17 19:55 Dose: 20 mg Ondansetron HCl (Zofran Inj*) 4 mg IV Q8H [facility] Last Admin: 02/06/17 02:31 Dose: 4 mg Polyethylene Glycol/Electrolytes (Miralax*) 17 gm PO DAILY PRN PRN Reason: CONSTIPATION Assessment: 86 yo M w locally advanced esophageal CA on curative intent chemo/RT and a history of Afib w RVR in November now presenting with AMS in the setting of polypharmacy, which has improved significantly, however he developed recurrent afib w rvr. Plan: AMS: markedly improved, suspect related to scopolamine patch Afib w RVR: appreciate cardiology consultation, plan for DANYEL//cardioversion today watch electrolytes closely cont eloquis cont dilt and metoprolol severe calorie malnutrition: check prealbumin weight stable to improved if anything he and his have refused home services repeatedly, but will continue to work on this. he needs to take ensure supplementation more but is difficult to encourage dvt prophy: myke full code
--- NOTE | 2017-02-06 09:46 | PN ---
Subjective Date of Service: 02/06/17 Interval History: f/u Afib Patient denies any CP, dyspnea, lightheadedness or palpitations Records clarified, left hospital last admission in asymptomatic rate controlled AFib after reverted from cardioversion Back to baseline mental status now as per Dr. Tinoco after scopolamine patch removed. Tele: Afib/flutter with elevated HR Medications Active Medications: Apixaban (Eliquis*) 5 mg PO BID [facility] Last Admin: 02/05/17 21:27 Dose: 5 mg Atenolol (Tenormin Tab*) 50 mg PO DAILY [facility] Atorvastatin Calcium (Lipitor*) 20 mg PO QPM [facility] Last Admin: 02/05/17 17:26 Dose: 20 mg Diltiazem HCl (Cardizem Cd Cap*) 120 mg PO DAILY [facility] Last Admin: 02/05/17 09:23 Dose: 120 mg Diphenhydramine HCl (Benadryl Po*) 25 mg PO BEDTIME PRN PRN Reason: SLEEP Last Admin: 02/05/17 00:03 Dose: 25 mg Heparin Sodium (Porcine) (Heparin Flush Port (Ivad)) 5 ml FLUSH DAILY [facility] PRN Reason: Protocol Last Admin: 02/05/17 09:39 Dose: Not Given Sodium Chloride (Ns 0.9% 1000 Ml*) 1,000 mls @ 125 mls/hr IV PER RATE [facility] Last Admin: 02/06/17 00:56 Dose: 125 mls/hr Magnesium Sulfate (Magnesium Sulf 4 Gm/100 Ml Iv*) 4,000 mg in 100 mls @ 33.333 mls/hr IVPB ONCE ONE Stop: 02/06/17 11:02 Magnesium Oxide (Magox 400 Tab*) 400 mg PO BID [facility] Last Admin: 02/05/17 19:55 Dose: 400 mg Pto: Continuous 5- (Fluorouracil Pump) 1 dose IV .CONTINUOUS [facility] Omeprazole (Prilosec Cap*) 20 mg PO BID [facility] Last Admin: 02/05/17 19:55 Dose: 20 mg Ondansetron HCl (Zofran Inj*) 4 mg IV Q8H [facility] Last Admin: 02/06/17 02:31 Dose: 4 mg Polyethylene Glycol/Electrolytes (Miralax*) 17 gm PO DAILY PRN PRN Reason: CONSTIPATION Objective Vital Signs: Temp Pulse Resp BP Pulse Ox 97.6 F 102 16 113/88 98 02/06/17 07:30 02/06/17 07:30 02/06/17 07:30 02/06/17 07:30 02/06/17 07:30 Appearance: elderly, pleasant, nad Neck: Trachea Midline Respiratory: Symmetrical Chest Expansion and Respiratory Effort Cardiovascular: - - irregularly irregular, no significant murmur Abdominal: NL Sounds; No Tenderness; No Distention Extremities: No Edema, No Clubbing, Cyanosis Skin: No Rash or Ulcers Neurological: - - awake and alert Laboratory Results: 02/06/17 05:04 02/06/17 05:04 Total Bilirubin 0.30 mg/dL (0.2-1.0) 02/05/17 08:10 AST 22 U/L (13-39) 02/05/17 08:10 ALT 11 U/L (7-52) 02/05/17 08:10 Alkaline Phosphatase 54 U/L (34-104) 02/05/17 08:10 Total Protein 5.7 g/dL (6.4-8.9) L 02/05/17 08:10 Albumin 2.5 g/dL (3.2-5.2) L 02/05/17 08:10 Globulin 3.2 g/dL (2-4) 02/05/17 08:10 Albumin/Globulin Ratio 0.8 (1-3) L 02/05/17 08:10 mg 1.6 Assessment/Plan Rajinder Patterson is an 86 year old man with esophageal cancer receiving chemotherapy , asymptomatic AFib chads2-vasc score at least 2 admitted with confusion felt to be related to scopolamine patch. - Discussed with Dr. Tinoco, will hold off on DANYEL/CV for now. - Restart atenolol 50 mg (ordered) (? if taking at home as was not on outpatient med list from 01/23/2017 office note). May need to prescribe and reconcile home meds. Not taking this medication may be why heart rates have been elevated - Continue cardizem 120 mg PO daily - Can BB/CCB as needed for rate control. - Continue eliquis 5 mg PO BID - Continue to replace electrolytes as is being done Thank you for allowing me to participate in the cardiovascular care of this patient. Please do not hesitate to contact me with questions or concerns.
[2017-02-06] MEDS ORDERED: Atenolol TAB* 50 MG PO SCH (10:00)
[2017-02-06] MEDS: Apixaban* 5 MG TAB PO SCH ×2 (10:03→20:07)
[2017-02-06] MEDS: Omeprazole CAP* 20 MG PO SCH ×2 (10:03→20:07)
[2017-02-06] MEDS: Magnesium Oxide TAB* 400 MG PO SCH ×2 (10:03→20:07)
[2017-02-06] MEDS: Diltiazem CD CAP* 120 MG PO SCH (10:04)
[2017-02-06] MEDS: Atorvastatin* 20 MG TAB PO SCH (17:14)
[2017-02-07] MEDS: Ondansetron INJ* 2 MG/ML VIAL IV SCH ×3 (03:13→17:24)
[2017-02-07] MEDS: Diltiazem CD CAP* 120 MG PO SCH (08:04)
[2017-02-07] MEDS: Apixaban* 5 MG TAB PO SCH ×2 (08:04→20:36)
[2017-02-07] MEDS: Atenolol TAB* 50 MG PO SCH ×2 (08:05→08:06)
[2017-02-07] MEDS: Omeprazole CAP* 20 MG PO SCH ×2 (08:05→20:37)
[2017-02-07] MEDS: Magnesium Oxide TAB* 400 MG PO SCH ×2 (08:05→20:36)
--- NOTE | 2017-02-07 08:48 | PN ---
Subjective Date of Service: 02/07/17 Interval History: f/u Afib Patient very emotional this morning about status of cancer and treatment No outright palpitations, chest pain or dyspnea Tele: Afib/flutter with slightly elevated HR Medications Active Medications: Apixaban (Eliquis*) 5 mg PO BID [facility] Last Admin: 02/07/17 08:04 Dose: 5 mg Atenolol (Tenormin Tab*) 100 mg PO DAILY [facility] Last Admin: 02/07/17 08:06 Dose: Not Given Atorvastatin Calcium (Lipitor*) 20 mg PO QPM [facility] Last Admin: 02/06/17 17:14 Dose: 20 mg Diltiazem HCl (Cardizem Cd Cap*) 120 mg PO DAILY [facility] Last Admin: 02/07/17 08:04 Dose: 120 mg Diphenhydramine HCl (Benadryl Po*) 25 mg PO BEDTIME PRN PRN Reason: SLEEP Last Admin: 02/05/17 00:03 Dose: 25 mg Heparin Sodium (Porcine) (Heparin Flush Port (Ivad)) 5 ml FLUSH DAILY [facility] PRN Reason: Protocol Last Admin: 02/07/17 08:03 Dose: Not Given Magnesium Oxide (Magox 400 Tab*) 400 mg PO BID [facility] Last Admin: 02/07/17 08:05 Dose: 400 mg Pto: Continuous 5- (Fluorouracil Pump) 1 dose IV .CONTINUOUS [facility] Omeprazole (Prilosec Cap*) 20 mg PO BID [facility] Last Admin: 02/07/17 08:05 Dose: 20 mg Ondansetron HCl (Zofran Inj*) 4 mg IV Q8H [facility] Last Admin: 02/07/17 03:13 Dose: 4 mg Polyethylene Glycol/Electrolytes (Miralax*) 17 gm PO DAILY PRN PRN Reason: CONSTIPATION Objective Vital Signs: Temp Pulse Resp BP Pulse Ox 97.5 F 109 16 124/72 98 02/07/17 07:41 02/07/17 07:41 02/07/17 08:00 02/07/17 07:41 02/07/17 07:41 Appearance: elderly, pleasant, nad Neck: Trachea Midline Respiratory: Symmetrical Chest Expansion and Respiratory Effort Cardiovascular: - - irregularly irregular, no significant murmur Abdominal: NL Sounds; No Tenderness; No Distention Extremities: No Edema, No Clubbing, Cyanosis Skin: No Rash or Ulcers Neurological: - - awake and alert Laboratory Results: 02/06/17 05:04 02/06/17 05:04 Total Bilirubin 0.30 mg/dL (0.2-1.0) 02/05/17 08:10 AST 22 U/L (13-39) 02/05/17 08:10 ALT 11 U/L (7-52) 02/05/17 08:10 Alkaline Phosphatase 54 U/L (34-104) 02/05/17 08:10 Total Protein 5.7 g/dL (6.4-8.9) L 02/05/17 08:10 Albumin 2.5 g/dL (3.2-5.2) L 02/05/17 08:10 Globulin 3.2 g/dL (2-4) 02/05/17 08:10 Albumin/Globulin Ratio 0.8 (1-3) L 02/05/17 08:10 Assessment/Plan Rajinder Patterson is an 86 year old man with esophageal cancer receiving chemotherapy , asymptomatic AFib chads2-vasc score at least 2 admitted with confusion felt to be related to scopolamine patch. - Increase atenolol from 50 to 100 mg PO daily (ordered) - Continue cardizem 120 mg PO daily - Can titrate BB/CCB as needed for rate control. - Continue eliquis 5 mg PO BID - Continue to replace electrolytes as is being done Thank you for allowing me to participate in the cardiovascular care of this patient. Please do not hesitate to contact me with questions or concerns.
[2017-02-07 10:04] LABS: Hematocrit 33 % (42-52); Hemoglobin 10.8 g/dl (14.0-18.0); Mean Corpuscular HGB Conc 33 g/dl (31-36); Mean Corpuscular Hemoglobin 31 pg (27-31); Mean Corpuscular Volume 93 fL (80-94); Mean Platelet Volume 9 um3 (7.4-10.4); Red Blood Count 3.53 10^6/ul (4.0-5.4); Red Cell Distribution Width 15 % (10.5-15)
[2017-02-07 10:05] LABS: Comments Flag Yes
[2017-02-07 10:06] LABS: White Blood Count 1.2 10^3/ul (3.5-10.8)
[2017-02-07 10:20] LABS: Albumin 2.6 g/dL (3.2-5.2); BUN/Creatinine Ratio 19.4 (8-20); Calcium 8.1 mg/dL (8.6-10.3); EGFR African American 93.5 (>60); EGFR Non-African American 72.7 (>60); Globulin 3.4 g/dL (2-4); Potassium 4.5 mmol/L (3.5-5.0); Total Bilirubin 0.4 mg/dL (0.2-1.0)
--- NOTE | 2017-02-07 10:54 | PN ---
Progress Note - Progress Note SOAP: Subjective: []Emotional today regarding difficulty with treatment. Biggest complaint is r/ t taste changes. Hopes to go home, PT eval. pending. Medications: Apixaban (Eliquis*) 5 mg PO BID [facility] Last Admin: 02/07/17 08:04 Dose: 5 mg Atenolol (Tenormin Tab*) 100 mg PO DAILY [facility] Last Admin: 02/07/17 08:06 Dose: Not Given Atorvastatin Calcium (Lipitor*) 20 mg PO QPM [facility] Last Admin: 02/06/17 17:14 Dose: 20 mg Diltiazem HCl (Cardizem Cd Cap*) 120 mg PO DAILY [facility] Last Admin: 02/07/17 08:04 Dose: 120 mg Diphenhydramine HCl (Benadryl Po*) 25 mg PO BEDTIME PRN PRN Reason: SLEEP Last Admin: 02/05/17 00:03 Dose: 25 mg Heparin Sodium (Porcine) (Heparin Flush Port (Ivad)) 5 ml FLUSH DAILY [facility] PRN Reason: Protocol Last Admin: 02/07/17 08:03 Dose: Not Given Magnesium Oxide (Magox 400 Tab*) 400 mg PO BID [facility] Last Admin: 02/07/17 08:05 Dose: 400 mg Pto: Continuous 5- (Fluorouracil Pump) 1 dose IV .CONTINUOUS [facility] Omeprazole (Prilosec Cap*) 20 mg PO BID [facility] Last Admin: 02/07/17 08:05 Dose: 20 mg Ondansetron HCl (Zofran Inj*) 4 mg IV Q8H [facility] Last Admin: 02/07/17 03:13 Dose: 4 mg Polyethylene Glycol/Electrolytes (Miralax*) 17 gm PO DAILY PRN PRN Reason: CONSTIPATION Objective: [] Vital Signs Temp Pulse Resp BP Pulse Ox 97.5 F 109 16 124/72 98 02/07/17 07:41 02/07/17 07:41 02/07/17 08:00 02/07/17 07:41 02/07/17 07:41 A&Ox3, EOMI, neuro grossly non-focal HRI, A.Fib on tele LS clear, resp. even and non-labored +BS, abd. soft and non-tender +PP=bilat., no edema noted Laboratory Results - last 24 hr 02/07/17 02/07/17 08:15 08:15 WBC 1.2 L RBC 3.53 L Hgb 10.8 L Hct 33 L MCV 93 MCH 31 MCHC 33 RDW 15 Plt Count 174 MPV 9 Neut % (Auto) 71.8 Lymph % (Auto) 8.6 L [place] % (Auto) 18.8 H Eos % (Auto) 0.3 Baso % (Auto) 0.5 Absolute Neuts (auto) 0.9 L Absolute Lymphs (auto) 0.1 L Absolute Monos (auto) 0.2 Absolute Eos (auto) 0 Absolute Basos (auto) 0 Absolute Nucleated RBC 0 Nucleated RBC % 0.4 Sodium 133 Potassium 4.5 Chloride 103 Carbon Dioxide 24 Anion Gap 6 BUN 19 Creatinine 0.98 Est GFR ( Amer) 93.5 Est GFR (Non-Af Amer) 72.7 BUN/Creatinine Ratio 19.4 Glucose 95 Calcium 8.1 L Magnesium 2.0 Total Bilirubin 0.40 AST 18 ALT 12 Alkaline Phosphatase 67 Total Protein 6.0 L Albumin 2.6 L Globulin 3.4 Albumin/Globulin Ratio 0.8 L Assessment: []86 yo m with locally advanced esophageal cancer currently on therapy with Carbo/5FU/XRT, however second dose of Carbo (D22) held d/t neutropenia. Course complicated by acute confusion secondary to anti-cholinergic (scopolamine), now resolved, and A.Fib with poor rate control, improving with medical management. Plan: []1. Esophageal cancer: cont. 5FU, last week starting Friday. No further Carbo. Cont. RT as per Dr. Sims. 2. Confusion: resolved, avoid scopolamine 3. A.Fib: improving with medications, appreciate cardiology input 4. Neutropenia: chemotherapy induced, follow D/C when rate better controlled <100 (current avg. 110s)
[2017-02-07] MEDS: Atorvastatin* 20 MG TAB PO SCH (17:23)
[2017-02-08] MEDS: Ondansetron INJ* 2 MG/ML VIAL IV SCH ×3 (02:34→17:33)
[2017-02-08] MEDS: Omeprazole CAP* 20 MG PO SCH ×2 (08:01→21:07)
[2017-02-08] MEDS: Atenolol TAB* 50 MG PO SCH (08:02)
[2017-02-08] MEDS: Diltiazem CD CAP* 120 MG PO SCH (08:02)
[2017-02-08] MEDS: Apixaban* 5 MG TAB PO SCH ×2 (08:02→21:07)
[2017-02-08] MEDS: Magnesium Oxide TAB* 400 MG PO SCH ×2 (08:03→21:11)
[2017-02-08] MEDS: Atorvastatin* 20 MG TAB PO SCH (16:59)
[2017-02-08] MEDS ORDERED: LORazepam TAB(*) 0.5 MG PO ONE (21:30)
[2017-02-09] MEDS: Ondansetron INJ* 2 MG/ML VIAL IV SCH ×3 (02:20→17:11)
[2017-02-09] MEDS: Diltiazem CD CAP* 120 MG PO SCH (08:32)
[2017-02-09] MEDS: Atenolol TAB* 50 MG PO SCH (08:32)
[2017-02-09] MEDS: Omeprazole CAP* 20 MG PO SCH ×2 (08:32→21:17)
[2017-02-09] MEDS: Magnesium Oxide TAB* 400 MG PO SCH ×2 (08:32→21:17)
[2017-02-09] MEDS: Apixaban* 5 MG TAB PO SCH ×2 (08:33→21:17)
[2017-02-09] MEDS: Atorvastatin* 20 MG TAB PO SCH (17:11)
[2017-02-10] MEDS: Ondansetron INJ* 2 MG/ML VIAL IV SCH ×2 (02:11→10:38)
[2017-02-10 06:20] LABS: Hematocrit 32 % (42-52); Hemoglobin 10.9 g/dl (14.0-18.0); Mean Corpuscular HGB Conc 34 g/dl (31-36); Mean Corpuscular Hemoglobin 31 pg (27-31); Mean Corpuscular Volume 92 fL (80-94); Mean Platelet Volume 7 um3 (7.4-10.4); Red Blood Count 3.49 10^6/ul (4.0-5.4); Red Cell Distribution Width 15 % (10.5-15)
[2017-02-10 06:26] LABS: Add Diff/Slide Review? Slide Review Added; Comments Flag Yes; White Blood Count 1.1 10^3/ul (3.5-10.8)
[2017-02-10 06:38] LABS: BUN/Creatinine Ratio 16.7 (8-20); Calcium 8.4 mg/dL (8.6-10.3); EGFR African American 103.1 (>60); EGFR Non-African American 80.2 (>60); Potassium 3.9 mmol/L (3.5-5.0)
[2017-02-10] MEDS: Omeprazole CAP* 20 MG PO SCH ×2 (08:49→21:46)
[2017-02-10] MEDS: Atenolol TAB* 50 MG PO SCH (08:49)
[2017-02-10] MEDS: Diltiazem CD CAP* 120 MG PO SCH (08:49)
[2017-02-10] MEDS: Apixaban* 5 MG TAB PO SCH ×2 (08:49→21:46)
[2017-02-10] MEDS: Magnesium Oxide TAB* 400 MG PO SCH ×2 (08:50→21:46)
[2017-02-10] MEDS: Polyethylene Glycol 3350* 17 GM PACKET PO PRN (10:39)
[2017-02-10] MEDS ORDERED: Ondansetron TAB* 4 MG PO PRN (12:57)
[2017-02-10] MEDS: Atorvastatin* 20 MG TAB PO SCH (17:43)
[2017-02-10] MEDS: Sodium Chloride TAB* 1 GM PO SCH (21:46)
[2017-02-11 06:46] LABS: Hematocrit 33 % (42-52); Hemoglobin 11.2 g/dl (14.0-18.0); Mean Corpuscular HGB Conc 34 g/dl (31-36); Mean Corpuscular Hemoglobin 32 pg (27-31); Mean Corpuscular Volume 92 fL (80-94); Mean Platelet Volume 7 um3 (7.4-10.4); Red Blood Count 3.55 10^6/ul (4.0-5.4); Red Cell Distribution Width 14 % (10.5-15)
[2017-02-11 06:48] LABS: Comments Flag Yes; White Blood Count 1.4 10^3/ul (3.5-10.8)
[2017-02-11 06:49] LABS: Add Diff/Slide Review? Slide Review Added
[2017-02-11 07:06] LABS: Albumin 2.5 g/dL (3.2-5.2); EGFR African American 116.5 (>60); EGFR Non-African American 90.6 (>60); Globulin 3.4 g/dL (2-4); Magnesium 1.5 mg/dL (1.9-2.7); Potassium 3.5 mmol/L (3.5-5.0); Total Bilirubin 0.4 mg/dL (0.2-1.0); Total Protein 5.9 g/dL (6.4-8.9)
[2017-02-11] MEDS: Sodium Chloride TAB* 1 GM PO SCH ×2 (09:11→21:56)
[2017-02-11] MEDS: Polyethylene Glycol 3350* 17 GM PACKET PO PRN (09:11)
[2017-02-11] MEDS: Omeprazole CAP* 20 MG PO SCH ×2 (09:11→21:56)
[2017-02-11] MEDS: Diltiazem CD CAP* 120 MG PO SCH (09:11)
[2017-02-11] MEDS: Magnesium Oxide TAB* 400 MG PO SCH ×3 (09:11→21:56)
[2017-02-11] MEDS: Apixaban* 5 MG TAB PO SCH ×2 (09:11→21:56)
[2017-02-11] MEDS: Atenolol TAB* 50 MG PO SCH (09:11)
[2017-02-11] MEDS ORDERED: Magnesium Sulf 4 GM/100 ML IV* 4,000 MG/100 ML BAG IVPB ONE (10:00)
--- NOTE | 2017-02-11 10:22 | PN ---
Progress Note - Progress Note SOAP: Subjective: []Very emotional and frustrated that he is still in hospital. Doesn't understand why he is still here. No specific complaints, stating, "Well what isn't wrong." Eating and drinking OK. Amb. with walker short distances, though easily SOB with exertion. Agreeable to restarting chemotherapy, "I talked with my about it." Denies cardiac symptoms. No BM in a couple days, though he tells nurse he went. Passing gas. has hired an aide to come into home 7 days/wk x8hrs. Have a bed set up downstairs for Mr. Patterson with bathroom on same floor. She feels it would be safe to bring him home. Medications: Apixaban (Eliquis*) 5 mg PO BID [facility] Last Admin: 02/11/17 09:11 Dose: 5 mg Atenolol (Tenormin Tab*) 100 mg PO DAILY [facility] Last Admin: 02/11/17 09:11 Dose: 100 mg Atorvastatin Calcium (Lipitor*) 20 mg PO QPM [facility] Last Admin: 02/10/17 17:43 Dose: 20 mg Diltiazem HCl (Cardizem Cd Cap*) 120 mg PO DAILY [facility] Last Admin: 02/11/17 09:11 Dose: 120 mg Diphenhydramine HCl (Benadryl Po*) 25 mg PO BEDTIME PRN PRN Reason: SLEEP Last Admin: 02/05/17 00:03 Dose: 25 mg Heparin Sodium (Porcine) (Heparin Flush Port (Ivad)) 5 ml FLUSH DAILY [facility] PRN Reason: Protocol Last Admin: 02/11/17 09:12 Dose: 5 ml Magnesium Sulfate (Magnesium Sulf 4 Gm/100 Ml Iv*) 4,000 mg in 100 mls @ 33.333 mls/hr IVPB ONCE ONE Stop: 02/11/17 12:59 Magnesium Oxide (Magox 400 Tab*) 400 mg PO BID [facility] Last Admin: 02/11/17 09:11 Dose: 400 mg Pto: Continuous 5- (Fluorouracil Pump) 1 dose IV .CONTINUOUS [facility] Omeprazole (Prilosec Cap*) 20 mg PO BID [facility] Last Admin: 02/11/17 09:11 Dose: 20 mg Ondansetron HCl (Zofran Tab*) 4 mg PO Q8H PRN PRN Reason: NAUSEA Polyethylene Glycol/Electrolytes (Miralax*) 17 gm PO DAILY PRN PRN Reason: CONSTIPATION Last Admin: 02/11/17 09:11 Dose: 17 gm Sodium Chloride (Sodium Chloride Tab*) 1 gm PO BID [facility] Last Admin: 02/11/17 09:11 Dose: 1 gm Objective: [] Vital Signs Temp Pulse Resp BP Pulse Ox 97.3 F 78 18 115/69 96 02/11/17 04:07 02/11/17 07:56 02/11/17 08:00 02/11/17 07:56 02/11/17 07:56 A&Ox3, although has difficulty with some specifics such as date and situation, able to state understanding of plan of care and then needs frequent re- enforcement of situation HRI, tele: A.Fib with rate avg. 130 LS clear, resp. even and non-labored +BS, abd. soft and non-tender Occ. cough r/t esophageal irritation, non-productive Laboratory Results - last 24 hr 02/11/17 02/11/17 06:08 06:08 WBC 1.4 L RBC 3.55 L Hgb 11.2 L Hct 33 L MCV 92 MCH 32 H MCHC 34 RDW 14 Plt Count 381 MPV 7 L Neut % (Auto) 57.4 Lymph % (Auto) 11.3 L [place] % (Auto) 30.7 H Eos % (Auto) 0.4 Baso % (Auto) 0.2 Absolute Neuts (auto) 0.8 L Absolute Lymphs (auto) 0.2 L Absolute Monos (auto) 0.4 Absolute Eos (auto) 0 Absolute Basos (auto) 0 Absolute Nucleated RBC 0 Nucleated RBC % 0.2 Sodium 132 L Potassium 3.5 Chloride 99 L Carbon Dioxide 29 Anion Gap 4 BUN 13 Creatinine 0.81 Est GFR ( Amer) 116.5 Est GFR (Non-Af Amer) 90.6 BUN/Creatinine Ratio 16.0 Glucose 106 H Calcium 8.0 L Magnesium 1.5 L Total Bilirubin 0.40 AST 15 ALT 9 Alkaline Phosphatase 59 Total Protein 5.9 L Albumin 2.5 L Globulin 3.4 Albumin/Globulin Ratio 0.7 L Assessment: []86 yo m with locally advanced esophageal cancer currently receiving 5FU with RT (no further Carboplatin) due to complete this Wednesday 02/14. Admitted with acute confusion felt to be r/t scopolamine patch, subsequently developed rapid A.Fib (ultimately felt to be chronic), converted following titration of PO meds , and now unfortunately with recurrent A.Fib (rapid rate). He has had intermittent confusion and agitation that I feel is more delirium r/t inpatient stay, though his rapid heart rate may play a role as well. Plan: []1. A.Fib: call into cardiology, cont. tele, cont. current meds, replace Mg 2. Hypomagnesium: replace with IV 4 grams now 3. Cancer: resume 5FU cont. infusion with plan to cont. through last day of RT ( 02/14) D/C planning: has aide in place (case management to confirm with son) and will try to get in home nursing and PT assessments -- likely disposition not until tomorrow d/t rapid A.Fib.
[2017-02-11] MEDS ORDERED: Polyethylene Glycol 3350* 17 GM PACKET PO ONE (16:00)
[2017-02-11] MEDS: Atorvastatin* 20 MG TAB PO SCH (17:23)
[2017-02-12 06:56] LABS: Hematocrit 35 % (42-52); Hemoglobin 11.8 g/dl (14.0-18.0); Mean Corpuscular HGB Conc 34 g/dl (31-36); Mean Corpuscular Hemoglobin 31 pg (27-31); Mean Corpuscular Volume 92 fL (80-94); Mean Platelet Volume 7 um3 (7.4-10.4); Red Blood Count 3.79 10^6/ul (4.0-5.4); Red Cell Distribution Width 14 % (10.5-15); White Blood Count 1.5 10^3/ul (3.5-10.8)
[2017-02-12 07:07] LABS: Add Diff/Slide Review? Slide Review Added; Comments Flag Yes
[2017-02-12 07:10] LABS: BUN/Creatinine Ratio 15.2 (8-20); Calcium 8.1 mg/dL (8.6-10.3); EGFR African American 100.6 (>60); EGFR Non-African American 78.2 (>60); Magnesium 1.9 mg/dL (1.9-2.7); Potassium 3.6 mmol/L (3.5-5.0)
[2017-02-12] MEDS: Atenolol TAB* 50 MG PO SCH (08:44)
[2017-02-12] MEDS: Diltiazem CD CAP* 120 MG PO SCH (08:45)
[2017-02-12] MEDS: Sodium Chloride TAB* 1 GM PO SCH ×2 (08:45→21:58)
[2017-02-12] MEDS: Apixaban* 5 MG TAB PO SCH ×2 (08:45→21:57)
[2017-02-12] MEDS: Magnesium Oxide TAB* 400 MG PO SCH ×4 (08:45→21:57)
[2017-02-12] MEDS: Omeprazole CAP* 20 MG PO SCH ×2 (08:45→21:56)
--- NOTE | 2017-02-12 09:37 | PN ---
Progress Note - Progress Note SOAP: Subjective: []Recurrent A.Fib yesterday with rate in 120s, discussed with Dr. Fuentes and recommendation for close electrolyte management. Given Mg IV and improved to 110s, however recurrent rapid rate this AM with exertion, up to 160s. Remains frustrated at length of admission. Had hoped to go home yesterday, however with HR delayed. Has a heard time understanding reasons for being inpatient. When told rapid rhythm puts him at risk for he states, "Well that would be a blessing." Emotional at times. Medications: Apixaban (Eliquis*) 5 mg PO BID [facility] Last Admin: 02/12/17 08:45 Dose: 5 mg Atenolol (Tenormin Tab*) 100 mg PO DAILY [facility] Last Admin: 02/12/17 08:44 Dose: 100 mg Atorvastatin Calcium (Lipitor*) 20 mg PO QPM [facility] Last Admin: 02/11/17 17:23 Dose: 20 mg Diltiazem HCl (Cardizem Cd Cap*) 120 mg PO DAILY [facility] Last Admin: 02/12/17 08:45 Dose: 120 mg Diphenhydramine HCl (Benadryl Po*) 25 mg PO BEDTIME PRN PRN Reason: SLEEP Last Admin: 02/05/17 00:03 Dose: 25 mg Heparin Sodium (Porcine) (Heparin Flush Port (Ivad)) 5 ml FLUSH DAILY [facility] PRN Reason: Protocol Last Admin: 02/12/17 08:46 Dose: Not Given Magnesium Oxide (Magox 400 Tab*) 400 mg PO QID [facility] Last Admin: 02/12/17 08:45 Dose: 400 mg Pto: Continuous 5- (Fluorouracil Pump) 1 dose IV .CONTINUOUS [facility] Omeprazole (Prilosec Cap*) 20 mg PO BID [facility] Last Admin: 02/12/17 08:45 Dose: 20 mg Ondansetron HCl (Zofran Tab*) 4 mg PO Q8H PRN PRN Reason: NAUSEA Polyethylene Glycol/Electrolytes (Miralax*) 17 gm PO DAILY PRN PRN Reason: CONSTIPATION Last Admin: 02/11/17 09:11 Dose: 17 gm Sodium Chloride (Sodium Chloride Tab*) 1 gm PO BID [facility] Last Admin: 02/12/17 08:45 Dose: 1 gm Objective: [] Vital Signs Temp Pulse Resp BP Pulse Ox 97.6 F 142 18 119/74 91 02/12/17 07:53 02/12/17 09:16 02/12/17 07:53 02/12/17 07:53 02/12/17 07:53 Alert and oriented to self and location. Difficulty with time, though oriented to president (but can not remember his name able to state specifics), lots of word finding difficulty, and struggles with specifics regarding situation and plan of care. Emotional at times, but communicating effectively. SPOKANE HRI, A.Fib. on tele with RVR LS clear, mild tachypnea and some accessory use + BS, abd. soft and non-tender Ambulating with steady gait, using walker with standby assist (PT this AM witness by flex o writer operator) Laboratory Results - last 24 hr 02/11/17 02/12/17 02/12/17 06:08 06:35 06:35 WBC 1.5 L RBC 3.79 L Hgb 11.8 L Hct 35 L MCV 92 MCH 31 MCHC 34 RDW 14 Plt Count 407 MPV 7 L Neut % (Auto) 60.8 Lymph % (Auto) 10.0 L [place] % (Auto) 28.5 H Eos % (Auto) 0.4 Baso % (Auto) 0.3 Absolute Neuts (auto) 0.9 L Absolute Lymphs (auto) 0.2 L Absolute Monos (auto) 0.4 Absolute Eos (auto) 0 Absolute Basos (auto) 0 Absolute Nucleated RBC 0.01 Nucleated RBC % 0.7 Hem Pathologist Commnt Sodium 133 Potassium 3.6 Chloride 98 L Carbon Dioxide 29 Anion Gap 6 BUN 14 Creatinine 0.92 Est GFR ( Amer) 100.6 Est GFR (Non-Af Amer) 78.2 BUN/Creatinine Ratio 15.2 Glucose 103 H Calcium 8.1 L Magnesium 1.9 Assessment: []86 yo w locally advanced esophageal cancer on definitive chemo/RT (due to complete Tues. 02/18) admitted with confusion that is for the most part improved , however course complicated by recurrent A.Fib with RVR (despite tapering of Beta-harman and calcium channel harman over last week). A.Fib felt to be chronic and NOT related to therapy. Plan: []1. A.Fib. RVR: check echo, call into cardiology regarding potential addition of digoxin or other modification. Continue to follow electrolytes closely. Has a hx. of falls therefore I am concerned about further decreasing BP 2. Esophageal Cancer: no more Carboplatin, cont. 5FU and RT through 02/18 3. Depression: will ask social work to f/u, I am hesitant to start new medications at this time with question of delirium and hx. of falls 4. Cognitive decline: differential includes: "chemo brain" (common to have word finding difficulty), delirium (inpatient stay, no evidence for infection), age related atrophy, and poor perfusion (?CHF?)
[2017-02-12] MEDS: Potassium Chloride LIQUID* 20 MEQ PACKET PO SCH ×2 (11:17→22:01)
--- NOTE | 2017-02-12 12:48 | ECHO ---
Patient: JAIMEE STUART [facility] Rec#: [id number] : 1930 Date: 02/12/2017 Age: 86y Height: 177.8 cm / 70.0 in Weight: 69.85 kg / 153.9 lbs Sex: M BSA: 1.87 Room#: 438 Admit Date#: 02/05/2017 Type: Inpatient Referring: Lori Juarez Reading: Colleen Barrios MD Rn Clinical Resource: Yuliya Guzman [facility] Rn Clinical Resource: Malou Joiner CC: Alejandro Spears MD Transthoracic Echocardiogram Indication: Dyspnea, A-fib. BP: 119/74 HR: 118 Rhythm: A-Fib Findings History: Advanced Esophageal cancer with chemo, HTN, HLD, a-fib, former smoker. Technical Comments: The study quality is good. The study is technically limited due to the patient's smoking history. Completed at 1215. Left Ventricle: The left ventricular chamber size is decreased. Moderate concentric left ventricular hypertrophy is observed. There is increased basal septal hypertrophy noted without evidence of an increased gradient across the left ventricular outflow tract. Global left ventricular wall motion and contractility are within normal limits. There is normal left ventricular systolic function. The estimated ejection fraction is 55-60%. The assessment of diastolic function is non-diagnostic. Left Atrium: The left atrium is mildly dilated. Right Ventricle: Moderator Band present. The right ventricular cavity size is normal. The right ventricular global systolic function is low normal. Right Atrium: The right atrium is mildly dilated. A prominent chiari network is noted in the right atrium. Aortic Valve: The aortic valve is trileaflet. The aortic valve leaflets are mildly thickened. There is a trace of aortic regurgitation. There is no evidence of aortic stenosis. Mitral Valve: There is mitral annular calcification. The mitral valve leaflets are mildly thickened. There is moderate mitral regurgitation. There is no evidence of mitral stenosis. Tricuspid Valve: The tricuspid valve leaflets are normal. There is mild tricuspid regurgitation. No pulmonary hypertension is noted. There is no tricuspid stenosis. Pulmonic Valve: The pulmonic valve appears normal. There is trace to mild pulmonic regurgitation. There is no pulmonic stenosis. Pericardium: A pericardial effusion is visualized. There is a moderate pericardial effusion. There are no signs of significant hemodynamic compromise.Respiratory variation: MV 13%, LVOT 16%, TV 19% There is a circumferential pericardial effusion.The PE measured 1.9cm posteriorly, and 1.0cm adjacent to RV free wall in PLAX. In PSAX papilary level, 0.9cm anteriorly, 1.9cm inferiorly, 2.2cm adjacent to lateral wall, and 0.8cm adjacent to RV. In A4C, 1.4 cm adjacent to RV apex. In A2C 1.7 cm adjacent to anterior wall, and 1.1 cm adjacent to inferior wall of LV. In subcostal, 2.3cm near LA and 1.2 cm adjacent to RV free wall. A left pleural effusion is present. Aorta: There is no dilatation of the ascending aorta. There is no dilatation of the aortic arch. There is no dilation of the aortic root. Pulmonary Artery: The main pulmonary artery appears normal. Venous: The inferior vena cava appears normal in size. There is a greater than 50% respiratory change in the inferior vena cava dimension. Conclusions The left ventricular chamber size is decreased. Moderate concentric left ventricular hypertrophy is observed. Global left ventricular wall motion and contractility are within normal limits. The estimated ejection fraction is 55-60%. The right ventricular global systolic function is low normal. There is moderate mitral regurgitation. There is mild tricuspid regurgitation. No pulmonary hypertension is noted. There is a moderate pericardial effusion. There are no signs of significant hemodynamic compromise. A left pleural effusion is present. The patient was in atrial fibrillation throughout the study. Compared with prior echo of 12/16/16, LV function is stable, RV hypokinesis new, MR previously mild to moderate, prior pericardial effusion size was small. Measurements Name Value Normal Range RVIDd (AP) 2D 2.3 cm (0.9 - 2.6) RVDdMajor (2D) 3.1 cm (2.2 - 4.4) RAd ISD 4CH 5.4 cm (3.4 - 4.9) RA (A4C)W 4.6 cm (2.9 - 4.6) IVSd (2D) 1.3 cm (0.6 - 1) LVPWd (2D) 1.5 cm (0.6 - 1) LVIDd (2D) 3.1 cm (3.6 - 5.4) LVIDs (2D) 2.5 cm - LV FS (2D) 19 % (25 - 45) Aortic Annulus 2.2 cm (1.4 - 2.6) Ao root diameter (2D) 3.4 cm (2.1 - 3.5) Ascending Ao 3.2 cm (2.1 - 3.4) Aortic arch 2.8 cm (1.8 - 3.4) LA dimension (AP) 2D 3.7 cm (2.3 - 3.8) LAd ISD 4CH 5.4 cm (2.9 - 5.3) LA ISD 4CH W 4.5 cm (2.5 - 4.5) Name Value Normal Range LA ESV SP 4CH (A/L) 67 ml - LA ESV SP 2CH (A/L) 82 ml - LA ESV BP (A/L) 75 ml - LA ESV BP (A/L) index 39.89 ml/m2 - LA ESV SP 4CH (MOD) 60 ml - LA ESV SP 2CH (MOD) 74 ml - Name Value Normal Range MV E-wave Vmax 0.95 m/sec - MV deceleration time 115 msec - LV septal e' Vmax 0.07 m/sec - LV lateral e' Vmax 0.07 m/sec - LV E:e' septal ratio 13.57 ratio - LV E:e' lateral ratio 13.75 ratio - Name Value Normal Range AV Vmax 0.9 m/sec - AV VTI 12.44 cm - AV peak gradient 3.04 mmHg - AV mean gradient 1.92 mmHg - LVOT Vmax 0.66 m/sec - LVOT VTI 9.83 cm - LVOT peak gradient 1.79 mmHg - LVOT mean gradient 1.06 mmHg - Name Value Normal Range TR Vmax 2.6 m/sec - TR peak gradient 27 mmHg - RAP 3 mmHg - RVSP 30 mmHg - IVC diameter 2 cm - Name Value Normal Range PV Vmax 0.7 m/sec - PV peak gradient 2.08 mmHg -
--- NOTE | 2017-02-12 13:42 | PN ---
Subjective Date of Service: 02/12/17 - cc: pt wants to go home, recurrance of afib and tachycardia Interval History: The patient was in normal sinus rhythm over the weekend, went back into afib and again with a rapid ventricular response. The patient denies racing or palpitations, denies dizziness. No chest pain. He isn't eating well, says food doesn't smell or taste good. He wants to go back home to see his . He says he can walk well. Nursing concurs walks quickly and well, but can't always negotiate chemo IV pole , somewhat confused this AM. Medications Active Medications: Apixaban (Eliquis*) 5 mg PO BID [facility] Last Admin: 02/12/17 08:45 Dose: 5 mg Atorvastatin Calcium (Lipitor*) 20 mg PO QPM [facility] Last Admin: 02/11/17 17:23 Dose: 20 mg Diltiazem HCl (Cardizem Cd Cap*) 120 mg PO DAILY [facility] Last Admin: 02/12/17 08:45 Dose: 120 mg Diphenhydramine HCl (Benadryl Po*) 25 mg PO BEDTIME PRN PRN Reason: SLEEP Last Admin: 02/05/17 00:03 Dose: 25 mg Heparin Sodium (Porcine) (Heparin Flush Port (Ivad)) 5 ml FLUSH DAILY [facility] PRN Reason: Protocol Last Admin: 02/12/17 08:46 Dose: Not Given Magnesium Oxide (Magox 400 Tab*) 400 mg PO QID [facility] Last Admin: 02/12/17 13:18 Dose: 400 mg Pto: Continuous 5- (Fluorouracil Pump) 1 dose IV .CONTINUOUS [facility] Omeprazole (Prilosec Cap*) 20 mg PO BID [facility] Last Admin: 02/12/17 08:45 Dose: 20 mg Ondansetron HCl (Zofran Tab*) 4 mg PO Q8H PRN PRN Reason: NAUSEA Polyethylene Glycol/Electrolytes (Miralax*) 17 gm PO DAILY PRN PRN Reason: CONSTIPATION Last Admin: 02/11/17 09:11 Dose: 17 gm Potassium Chloride (Klor-Con Liquid*) 40 meq PO BID [facility] Stop: 02/13/17 08:59 Last Admin: 02/12/17 11:17 Dose: 40 meq Potassium Chloride (Klor-Con Liquid*) 40 meq PO DAILY [facility] Sodium Chloride (Sodium Chloride Tab*) 1 gm PO BID [facility] Last Admin: 02/12/17 08:45 Dose: 1 gm Sotalol HCl (Betapace Tab*) 80 mg PO BID [facility] Objective Vital Signs: Temp Pulse Resp BP Pulse Ox 97.6 F 48 18 119/74 94 02/12/17 07:53 02/12/17 07:53 02/12/17 08:00 02/12/17 07:53 02/12/17 11:57 Oxygen Devices in Use Now: None Appearance: elderly, pleasant, nad, anxious Eyes: PERRLA Ears/Nose/Mouth/Throat: Clear Oropharnyx Neck: NL Appearance and Movements; NL JVP, Trachea Midline Respiratory: Symmetrical Chest Expansion and Respiratory Effort - diminished breathsounds in to bases bilaterally, dull to percussion as well. Cardiovascular: NL Sounds; No Murmurs; No JVD - irregularly irregular and tachycardic., - - irregularly irregular, no significant murmur Abdominal: NL Sounds; No Tenderness; No Distention, - Extremities: No Edema, No Clubbing, Cyanosis Skin: No Rash or Ulcers Neurological: - - awake and alert Laboratory Results: 02/12/17 06:35 02/12/17 06:35 Total Bilirubin 0.40 mg/dL (0.2-1.0) 02/11/17 06:08 AST 15 U/L (13-39) 02/11/17 06:08 ALT 9 U/L (7-52) 02/11/17 06:08 Alkaline Phosphatase 59 U/L (34-104) 02/11/17 06:08 B-Natriuretic Peptide 926 pg/mL (-100) H 02/12/17 06:35 Total Protein 5.9 g/dL (6.4-8.9) L 02/11/17 06:08 Albumin 2.5 g/dL (3.2-5.2) L 02/11/17 06:08 Globulin 3.4 g/dL (2-4) 02/11/17 06:08 Albumin/Globulin Ratio 0.7 (1-3) L 02/11/17 06:08 Diagnostic Imaging: ECHO today: moderate PC effusion and pleural effusion, moderate LVH with normal LV systolic function, mod MR, PA pressure normal. Low normal RV systolic function. EKG Data: Monitor: afib, RVR, currently 110 bpm. Assessment/Plan Rajinder Patterson is an 86 year old man with esophageal cancer receiving chemotherapy , initially thought to be in chronic AFib with chads2-vasc score at least 2 now evidence of paroxysmal afib. Pericardial effusion enlarging slowly. - Convert atenalol to Sotalol 80 bid - Continue cardizem 120 mg PO daily - Continue eliquis 5 mg PO BID - Continue to replace electrolytes with Magnesium goal >= 2, potassium goal: >4 , <= 5.2 Possible electrical cardioversion in AM to facilitate getting home (vs. f/u as outpatient on sotalol, CV later PRN). Effusions: ? due to afib, RVR vs paraneoplastic issue. Per Dr. Damico, if it is related to his esophogeal CA it would be his first sign of metastatic disease. I will check ESR/CRP.
[2017-02-12] MEDS: Sotalol TAB* 80 MG PO SCH ×2 (14:41→22:10)
[2017-02-12] MEDS: Atorvastatin* 20 MG TAB PO SCH (17:01)
[2017-02-13 07:45] VITALS: BP 137/60
[2017-02-13 08:11] LABS: BUN/Creatinine Ratio 17.9 (8-20); Calcium 8.3 mg/dL (8.6-10.3); EGFR African American 96.9 (>60); EGFR Non-African American 75.3 (>60); Magnesium 1.9 mg/dL (1.9-2.7); Potassium 4.1 mmol/L (3.5-5.0)
[2017-02-13 08:19] LABS: Hematocrit 33 % (42-52); Hemoglobin 11.2 g/dl (14.0-18.0); Mean Corpuscular HGB Conc 34 g/dl (31-36); Mean Corpuscular Hemoglobin 31 pg (27-31); Mean Corpuscular Volume 92 fL (80-94); Mean Platelet Volume 7 um3 (7.4-10.4); Red Cell Distribution Width 15 % (10.5-15)
[2017-02-13 08:22] LABS: Comments Flag Yes
[2017-02-13 08:24] LABS: Add Diff/Slide Review? Slide Review Added
[2017-02-13] MEDS ORDERED: Magnesium Oxide TAB* 400 MG PO SCH (09:00)
[2017-02-13] MEDS ORDERED: Potassium Chloride LIQUID* 20 MEQ PACKET PO SCH (09:00)
[2017-02-13] MEDS: Apixaban* 5 MG TAB PO SCH (09:33)
[2017-02-13] MEDS: Sodium Chloride TAB* 1 GM PO SCH (09:33)
[2017-02-13] MEDS: Omeprazole CAP* 20 MG PO SCH (09:33)
[2017-02-13] MEDS: Diltiazem CD CAP* 120 MG PO SCH (09:37)
[2017-02-13] MEDS: Sotalol TAB* 80 MG PO SCH (09:37)
[2017-02-13] MEDS: Magnesium Oxide TAB* 400 MG PO SCH (09:50)
[2017-02-13 11:13] LABS: Immature Granulocytes 2 % (0-9); Macrocytosis 1+; Neutrophil % 68 % (38-83)
--- NOTE | 2017-02-13 11:35 | PN ---
Subjective Date of Service: 02/13/17 - CC: parox afib Interval History: The patient feels well, excited to go home. Denies any changes in how he feels, walking going well. Admits his appetite is poor/not at his usual baseline. Medications Active Medications: Apixaban (Eliquis*) 5 mg PO BID [facility] Last Admin: 02/13/17 09:33 Dose: 5 mg Atorvastatin Calcium (Lipitor*) 20 mg PO QPM [facility] Last Admin: 02/12/17 17:01 Dose: 20 mg Diltiazem HCl (Cardizem Cd Cap*) 120 mg PO DAILY [facility] Last Admin: 02/13/17 09:37 Dose: 120 mg Diphenhydramine HCl (Benadryl Po*) 25 mg PO BEDTIME PRN PRN Reason: SLEEP Last Admin: 02/05/17 00:03 Dose: 25 mg Heparin Sodium (Porcine) (Heparin Flush Port (Ivad)) 5 ml FLUSH DAILY [facility] PRN Reason: Protocol Last Admin: 02/13/17 09:29 Dose: Not Given Magnesium Oxide (Magox 400 Tab*) 800 mg PO TID [facility] Last Admin: 02/13/17 09:39 Dose: 800 mg Pto: Continuous 5- (Fluorouracil Pump) 1 dose IV .CONTINUOUS [facility] Omeprazole (Prilosec Cap*) 20 mg PO BID [facility] Last Admin: 02/13/17 09:33 Dose: 20 mg Ondansetron HCl (Zofran Tab*) 4 mg PO Q8H PRN PRN Reason: NAUSEA Polyethylene Glycol/Electrolytes (Miralax*) 17 gm PO DAILY PRN PRN Reason: CONSTIPATION Last Admin: 02/11/17 09:11 Dose: 17 gm Potassium Chloride (Klor-Con Liquid*) 40 meq PO DAILY [facility] Last Admin: 02/13/17 09:36 Dose: 40 meq Sodium Chloride (Sodium Chloride Tab*) 1 gm PO BID [facility] Last Admin: 02/13/17 09:33 Dose: 1 gm Sotalol HCl (Betapace Tab*) 80 mg PO BID [facility] Last Admin: 02/13/17 09:37 Dose: 80 mg Objective Vital Signs: Temp Pulse Resp BP Pulse Ox 97.4 F 58 16 137/60 99 02/13/17 07:43 02/13/17 07:43 02/13/17 07:43 02/13/17 07:43 02/13/17 07:43 Oxygen Devices in Use Now: None Appearance: elderly, pleasant, nad, seated. Eyes: PERRLA Ears/Nose/Mouth/Throat: Clear Oropharnyx Neck: NL Appearance and Movements; NL JVP, Trachea Midline Respiratory: Symmetrical Chest Expansion and Respiratory Effort - diminished breathsounds in to bases bilaterally, dull to percussion, improved c/w yesterday. Cardiovascular: NL Sounds; No Murmurs; No JVD - irregularly irregular and tachycardic., - - irregularly irregular, no significant murmur Abdominal: NL Sounds; No Tenderness; No Distention, - Extremities: No Edema, No Clubbing, Cyanosis Skin: No Rash or Ulcers Neurological: - - awake and alert Laboratory Results: 02/13/17 07:03 02/13/17 07:03 Total Bilirubin 0.40 mg/dL (0.2-1.0) 02/11/17 06:08 AST 15 U/L (13-39) 02/11/17 06:08 ALT 9 U/L (7-52) 02/11/17 06:08 Alkaline Phosphatase 59 U/L (34-104) 02/11/17 06:08 B-Natriuretic Peptide 926 pg/mL (-100) H 02/12/17 06:35 Total Protein 5.9 g/dL (6.4-8.9) L 02/11/17 06:08 Albumin 2.5 g/dL (3.2-5.2) L 02/11/17 06:08 Globulin 3.4 g/dL (2-4) 02/11/17 06:08 Albumin/Globulin Ratio 0.7 (1-3) L 02/11/17 06:08 Abnormal Lab Results 02/12/17 02/12/17 02/12/17 06:35 14:39 14:39 WBC RBC Hgb Hct MCV MCH MCHC RDW Plt Count MPV Immature Gran % (Auto) Neut % (Auto) Lymph % (Auto) Harper % (Auto) Eos % (Auto) Baso % (Auto) Absolute Neuts (auto) Absolute Lymphs (auto) Absolute Monos (auto) Absolute Eos (auto) Absolute Basos (auto) Absolute Nucleated RBC Neutrophils % Band Neutrophils % Lymphocytes % Monocytes % Nucleated RBC % Normal RBC Morphology Macrocytosis ESR 93 H Hem Pathologist Commnt Sodium Potassium Chloride Carbon Dioxide Anion Gap BUN Creatinine Est GFR ( Amer) Est GFR (Non-Af Amer) BUN/Creatinine Ratio Glucose Calcium Magnesium C-Reactive Protein 87.95 H 02/13/17 02/13/17 07:03 07:03 WBC 2.0 L RBC 3.60 L Hgb 11.2 L Hct 33 L MCV 92 MCH 31 MCHC 34 RDW 15 Plt Count 383 MPV 7 L Immature Gran % (Auto) 2 Neut % (Auto) Not Reportable Lymph % (Auto) Not Reportable Harper % (Auto) Not Reportable Eos % (Auto) Not Reportable Baso % (Auto) Not Reportable Absolute Neuts (auto) 1.4 L Absolute Lymphs (auto) 0.12 L Absolute Monos (auto) 0.48 Absolute Eos (auto) 0 Absolute Basos (auto) 0 Absolute Nucleated RBC Not Reportable Neutrophils % 68 Band Neutrophils % 2 Lymphocytes % 6 L Monocytes % 24 H Nucleated RBC % Not Reportable Normal RBC Morphology Not Reportable Macrocytosis 1+ ESR Hem Pathologist Commnt Sodium 133 Potassium 4.1 Chloride 100 L Carbon Dioxide 27 Anion Gap 6 BUN 17 Creatinine 0.95 Est GFR ( Amer) 96.9 Est GFR (Non-Af Amer) 75.3 BUN/Creatinine Ratio 17.9 Glucose 87 Calcium 8.3 L Magnesium 1.9 C-Reactive Protein Diagnostic Imaging: ECHO 02/12/17: moderate PC effusion and pleural effusion, moderate LVH with normal LV systolic function, mod MR, PA pressure normal. Low normal RV systolic function. EKG Data: Monitor: Converted to normal sinus rhythm yesterday post Sotalol 80 mg and potassium repletion. ECG this AM: NSR, QTc 445 ms. Assessment/Plan Rajinder Patterson is an 86 year old man with esophageal cancer receiving chemotherapy , initially thought to be in chronic AFib with chads2-vasc score at least 2 now evidence of paroxysmal afib. Pericardial effusion enlarging slowly. Chemically cardioverted on sotalol. - Sotalol 80 bid - Continue cardizem 120 mg PO daily - Continue eliquis 5 mg PO BID Effusions: CRP and ESR elevated, per curbside discussions with Dr. Damico elevations at this level unlikely to be due to cancer, therefore some other inflammatory process could be occuring. I recommend starting colchicine, safest of the antiinflammatory agents, can follow CRP/ESR and effusions as an outpatient. Patient should follow up with me/cardiology in February.
[2017-02-13] MEDS ORDERED: Colchicine* 0.6 MG TAB PO SCH (12:00)
--- NOTE | 2017-02-13 21:42 | DS ---
DISCHARGE SUMMARY: DATE OF ADMISSION: 02/04/17 as OBV, 02/05/17 as full admit. DATE OF DISCHARGE: 02/13/17 DISCHARGE DIAGNOSES: 1. Confusion: Related to scopolamine, resolved. 2. Atrial fibrillation with rapid ventricular response: Paroxysmal, improved with medication manag ement by Cardiology. 3. Esophageal carcinoma: Continuing therapy through 02/18/17. 4. Hypertension: Controlled on current medications. 5. Gastroesophageal reflux disease: Continue Prilosec. DISCHARGE MEDICATIONS: 1. Magnesium oxide 800 mg p.o. 3 times daily. 2. MiraLax 17 g p.o. p.r.n. constipation, take if no BM. 3. Sodium chloride 1 g p.o. b.i.d. 4. Sotalol 80 mg p.o. b.i.d. 5. Imipramine 50 mg p.o. daily. 6. Simvastatin 40 mg p.o. every evening. 7. Omeprazole 20 mg p.o. b.i.d. 8. Apixaban 5 mg p.o. b.i.d. 9. Diltiazem 120 mg p.o. every day. 10. Trazodone 25 mg q.h.s. 11. Potassium chloride 40 mEq daily. 12. Ondansetron 4 mg p.o. q.4 hours p.r.n. nausea. 13. *SCOPOLAMINE PATCH*. HOSPITAL COURSE: Please see admission note for full H and P; however, briefly, Mr. Patterson is well kn own to our service due to likely advanced esophageal cancer, T3N1, currently on definitive chemoradi ation. Mr. Patterson has not tolerated his treatment exceptionally well with complications related to f alls and difficulty with his continuous infusion pump. He was seen in the office on 02/04/17 due to acute confusion. At that time, Mr. Patterson was admitted to the hospital for observation due to patricia rn of confusion related to initiation of another scopolamine patch. The patch was removed as well wi th trazodone and the patient was brought to the hospital. At that time, it was felt if he continued to decline, we would get a CT of the brain. The following day, Mr. Patterson developed Afib and consid eration for cardioversion was put in place. However, the following day, decision was made to not ca rdio-convert due to chronic nature of Afib from prior admission in November 2016 prior to his recent diagnosis. Mr. Patterson on admission was on Cardizem and therefore, they added additional beta-blocke r, atenolol. Subsequently, Mr. Patterson converted to sinus rhythm. His electrolytes were managed whil e in the hospital. Unfortunately, Mr. Patterson developed recurrent confusion on 02/10/17 and then subse quently converted back into Afib. His confusion has since improved and Dr. Barrios was consulted on 02/12/17, at which time she added sotalol and the patient converted to sinus rhythm. Throughout Mr Jaswinder Patterson's stay in the hospital, he has been very adamant that he wants to go home, his family has be en attempting to set up help including aides and he has accepted visiting nurse services. As such, Mr. Patterson will return home today with additional medications (sotalol), additional services as mentkelsey camargo, and plan for followup in both Radiation Oncology, Medical Oncology, and with Cardiology. Plan of care was reviewed with Mr. Patterson who denies any questions. This a.m., he is alert and orien duarte, though continues to have some word finding difficulty likely related to his chemotherapy. TIME SPENT: Greater than 40 minutes spent with greater than 50% [id number]. [place], [place] [id number]/[facility] #: [id number]
--- NOTE | 2017-02-13 22:16 | DS ---
DISCHARGE SUMMARY: LOCATION: Room 438. ADDENDUM: In addition, Mr. Patterson had an elevated ESR and CRP during his hospital stay. This was dr billingsley in response to an echocardiogram done with a second episode of AFib with RVR showing a moderate pericardial effusion without significant hemodynamic compromise. He had a left pleural effusion as well. The patient has not been febrile during his stay and it is thought that this might be an infl ammatory condition. Therefore, he will be started on colchicine 0.6 mg daily on discharge. Mr. Rui harvey has been instructed to call us with further concerns. He will follow up with Dr. Barrios as an o utpatient in early February and we will follow his CRP and ESR in approximately 1 month following complet ion of his chemotherapy. [place], [place] [id number]/[facility] #: [id number]
== END 2017-02-13 12:55 | disposition home or self-care (01) | DRG 308 ==
LOC: MED 17:06 → OBSVTOIN 02-05 14:00 → MEDTELE 02-05 15:36
PROVIDERS: ADMIT Internal Medicine Hematology & Oncology; ATTEND Internal Medicine Hematology & Oncology
PROC: DD001ZZ Beam Radiation of Esophagus using Photons 1 - 10 MeV (ICD-10-PCS; principal; 2017-02-05)
DX: I48.0 Paroxysmal atrial fibrillation (principal); E43 Unspecified severe protein-calorie malnutrition; J90 Pleural effusion, not elsewhere classified; I31.3 Pericardial effusion (noninflammatory); G62.9 Polyneuropathy, unspecified; C15.5 Malignant neoplasm of lower third of esophagus; D70.1 Agranulocytosis secondary to cancer chemotherapy; E87.1 Hypo-osmolality and hyponatremia; E83.42 Hypomagnesemia; E86.0 Dehydration; R41.0 Disorientation, unspecified; I48.92 Unspecified atrial flutter; I10 Essential (primary) hypertension; K21.9 Gastro-esophageal reflux disease without esophagitis; Z96.653 Presence of artificial knee joint, bilateral; Z88.5 Allergy status to narcotic agent; Z88.8 Allergy status to other drugs, medicaments and biological substances; Z87.891 Personal history of nicotine dependence; R54 Age-related physical debility; E78.5 Hyperlipidemia, unspecified; I08.3 Combined rheumatic disorders of mitral, aortic and tricuspid valves; D64.9 Anemia, unspecified; T44.3X5A Adverse effect of other parasympatholytics [anticholinergics and antimuscarinics] and spasmolytics, initial encounter; R41.81 Age-related cognitive decline; Z79.01 Long term (current) use of anticoagulants; Z68.22 Body mass index [BMI] 22.0-22.9, adult; Z91.81 History of falling
CPT/HCPCS: 36415; 36591; 70470; 77336; 77386; 80048; 80053; 83735; 83880; 84134; 85025; 85027; 85060; 85652; 86140; 93005; 93306; 96360; 96361; 96367; 96416; 99212; 99214; 99232; 99233; 99239; A9270-GY; G0463; G8978-GP-CK; G8979-GP-CH; J1100; J1642; J2405; J2469; J9045

== ENCOUNTER 2017-02-19 21:58 | Inpatient (IN) | payer MEDICARE ==
[2017-02-19] MEDS ORDERED: Diltiazem IV* 5 MG/ML 5 ML VIAL (for loading dose/IV Push) (25 MG) IV SLOW PU ONE (22:20)
--- NOTE | 2017-02-19 23:04 | RAD ---
INDICATION: Chest pain. COMPARISON: Comparison is made with a prior outside chest x-ray study from December 15, 2016. TECHNIQUE: AP and lateral views of the chest were obtained. FINDINGS: There is a power port central venous catheter present on the right side. The catheter demonstrate normal course. The heart is mildly enlarged and increased in size from the prior study. There is a small left pleural effusion and left basilar infiltrate. The right lung appears clear. IMPRESSION: SMALL PLEURAL EFFUSION AND LEFT BASILAR INFILTRATE.
[2017-02-19 23:05] LABS: Hematocrit 35 % (42-52); Hemoglobin 11.7 g/dl (14.0-18.0); Mean Corpuscular HGB Conc 33 g/dl (31-36); Mean Corpuscular Hemoglobin 31 pg (27-31); Mean Corpuscular Volume 92 fL (80-94); Mean Platelet Volume 8 um3 (7.4-10.4); Red Blood Count 3.82 10^6/ul (4.0-5.4); Red Cell Distribution Width 15 % (10.5-15); White Blood Count 5.1 10^3/ul (3.5-10.8)
[2017-02-19 23:21] LABS: Albumin 2.7 g/dL (3.2-5.2); BUN/Creatinine Ratio 21.6 (8-20); Calcium 8.7 mg/dL (8.6-10.3); EGFR African American 94.6 (>60); EGFR Non-African American 73.6 (>60); Globulin 3.7 g/dL (2-4); Magnesium 1.7 mg/dL (1.9-2.7); Potassium 3.6 mmol/L (3.5-5.0); Total Bilirubin 0.4 mg/dL (0.2-1.0); Total Protein 6.4 g/dL (6.4-8.9)
[2017-02-19 23:24] LABS: Troponin I 0.05 ng/mL (<0.04)
[2017-02-19 23:29] LABS: TSH (Thyroid Stimulating Horm) 0.67 mcIU/mL (0.34-5.60)
--- NOTE | 2017-02-19 23:31 | ED ---
Cecy Gomes Matthew, scribed for Chidi Robert MD on 02/19/17 at 2240 . Palpitations / Dysrhythmia - HPI Summary HPI Summary: An 86 y/o male presents to the ED with palpitations since hours ago. The patient 's family noticed his heart beat was erratic and called EMS. Per EMS, the patient's HR has varied between 39-122. The patient has a Hx of esophageal CA and had his last radiation treatment today. - History of Current Complaint Chief Complaint: EDDysrhythmPalp Time Seen by Provider: 02/19/17 22:03 Hx Obtained From: Patient, EMS Onset/Duration: Lasting Hours, Still Present Timing: Constant Severity Initially: Moderate Severity Currently: Moderate Character: Fast Aggravating: Nothing Alleviating: Nothing Associated Signs & Symptoms: Negative - Allergy/Home Medications Allergies/Adverse Reactions: Allergies Allergy/AdvReac Type Severity Reaction Status Date / Time Codeine AdvReac Unknown GI Upset Verified 12/15/16 23:31 Warfarin AdvReac Unknown Nausea And Verified 02/04/17 18:00 Vomiting PMH/Surg Hx/FS Hx/Imm Hx Endocrine/Hematology History: Denies: Hx Diabetes Cardiovascular History: Reports: Hx Angina, Hx Hypercholesterolemia, Hx Hypertension Denies: Hx Myocardial Infarction, Hx Valvular Heart Disease Respiratory History: Denies: Hx Asthma, Hx Chronic Obstructive Pulmonary Disease (COPD) GI History: Reports: Hx Gastroesophageal Reflux Disease History: Denies: Hx Renal Disease Musculoskeletal History: Reports: Hx Back Problems - Comp fxs Sensory History: Reports: Hx Contacts or Glasses - glasses, Hx Hearing Aid, Hx Hearing Problem - pt is [facility] Opthamlomology History: Reports: Hx Contacts or Glasses - glasses Neurological History: Reports: Other Neuro Impairments/Disorders - peripheral neuropathy Psychiatric History: Reports: Hx Depression - Cancer History Cancer Type, Location and Year: esophogeal cancer - Surgical History Surgery Procedure, Year, and Place: right shoulder tear repair. both knees replaced Infectious Disease History: Denies: Hx Clostridium Difficile, Hx Hepatitis, Hx Human Immunodeficiency Virus (HIV), Hx of Known/Suspected MRSA, Hx Shingles, Hx Tuberculosis, History Other Infectious Disease, Traveled Outside the [place] in Last 30 Days - Family History Known Family History: Positive: Cardiac Disease - Social History Alcohol Use: Rare Substance Use Type: Reports: None Smoking Status (MU): Former Smoker Have You Smoked in the Last Year: No Review of Systems Constitutional: Negative Eyes: Negative ENT: Negative Positive: Palpitations Respiratory: Negative Gastrointestinal: Negative Genitourinary: Negative Musculoskeletal: Negative Skin: Negative Neurological: Negative Psychological: Normal All Other Systems Reviewed And Are Negative: Yes Physical Exam Triage Information Reviewed: Yes Vital Signs On Initial Exam: Initial Vitals Temp Pulse Resp Pulse Ox 98.4 F 56 18 98 02/19/17 22:04 02/19/17 22:04 02/19/17 22:04 02/19/17 22:04 Vital Signs Reviewed: Yes Appearance: Positive: No Pain Distress, Thin Skin: Positive: Warm Head/Face: Positive: Normal Head/Face Inspection Eyes: Positive: MAX ENT: Positive: Hearing grossly normal Neck: Positive: Supple Respiratory/Lung Sounds: Positive: Clear to Auscultation, Breath Sounds Present Cardiovascular: Positive: IRR, Tachycardia Abdomen Description: Positive: Nontender, Soft Bowel Sounds: Positive: Present Neurological: Positive: Sensory/Motor Intact, Alert, Oriented to Person Place, Time Psychiatric: Positive: Affect/Mood Appropriate Diagnostics - Vital Signs Vital Signs Temp Pulse Resp Pulse Ox 02/19/17 22:04 98.4 F 56 18 98 - Laboratory Lab Results: Lab Results 02/19/17 02/19/17 02/19/17 Range/Units 22:35 22:35 22:35 WBC 5.1 (3.5-10.8) 10^3/ul RBC 3.82 L (4.0-5.4) 10^6/ul Hgb 11.7 L (14.0-18.0) g/dl Hct 35 L (42-52) % MCV 92 (80-94) fL MCH 31 (27-31) pg MCHC 33 (31-36) g/dl RDW 15 (10.5-15) % Plt Count 354 (150-450) 10^3/ul MPV 8 (7.4-10.4) um3 Neut % (Auto) 82.8 (38-83) % Lymph % (Auto) 2.6 L (25-47) % [place]haw % (Auto) 14.3 H (1-9) % Eos % (Auto) 0 (0-6) % Baso % (Auto) 0.3 (0-2) % Absolute Neuts (auto) 4.2 (1.5-7.7) 10^3/ul Absolute Lymphs (auto) 0.1 L (1.0-4.8) 10^3/ul Absolute Monos (auto) 0.7 (0-0.8) 10^3/ul Absolute Eos (auto) 0 (0-0.6) 10^3/ul Absolute Basos (auto) 0 (0-0.2) 10^3/ul Absolute Nucleated RBC 0.01 10^3/ul Nucleated RBC % 0.2 Sodium 135 (133-145) mmol/L Potassium 3.6 (3.5-5.0) mmol/L Chloride 101 (101-111) mmol/L Carbon Dioxide 20 L (22-32) mmol/L Anion Gap 14 H (2-11) mmol/L BUN 21 (6-24) mg/dL Creatinine 0.97 (0.67-1.17) mg/dL Est GFR ( Amer) 94.6 (>60) Est GFR (Non-Af Amer) 73.6 (>60) BUN/Creatinine Ratio 21.6 H (8-20) Glucose 92 (70-100) mg/dL Lactic Acid 1.1 (0.5-2.0) mmol/L Calcium 8.7 (8.6-10.3) mg/dL Magnesium 1.7 L (1.9-2.7) mg/dL Total Bilirubin 0.40 (0.2-1.0) mg/dL AST 15 (13-39) U/L ALT 10 (7-52) U/L Alkaline Phosphatase 69 (34-104) U/L Troponin I 0.05 H* (<0.04) ng/mL Total Protein 6.4 (6.4-8.9) g/dL Albumin 2.7 L (3.2-5.2) g/dL Globulin 3.7 (2-4) g/dL Albumin/Globulin Ratio 0.7 L (1-3) TSH 0.67 (0.34-5.60) mcIU/mL Result Diagrams: 02/19/17 22:35 02/19/17 22:35 Lab Statement: Any lab studies that have been ordered have been reviewed, and results considered in the medical decision making process. - Radiology CXR Xray Interpretation: Positive (See Comments) - IMPRESSION: SMALL PLEURAL EFFUSION AND LEFT BASILAR INFILTRAT Radiology Interpretation Completed By: Radiologist - EKG 22:16 Cardiac Rate: Tachycardia - 152 EKG Rhythm: SVT Re-Evaluation - Re-Evaluation First Eval Change: Improved - hr slowed with cardizem, will admit paroxysmal af Course/Dx - Course Assessment/Plan: An 86 y/o male presents to the ED with palpitations since hours ago. The patient's family noticed his heart beat was erratic and called EMS. Per EMS, the patient's HR has varied between 39-122. The patient has a Hx of esophageal CA and had his last radiation treatment today. EKG showed SVT at 152 bpm. CXR showed small pleural effusion and left basilar infiltrate. In the ED course, the patient was given Diltiazem. Labs were reviewed. Discussed the case with Dr. Kitchen who will admit the patient into his services. - Diagnoses Provider Diagnoses: Atrial fibrillation with rapid ventricular response, Chest pain - Physician Notifications Discussed Care Of Patient With: Dr. Kitchen (Hospitalist) at 23:30 -- Notified of patient's history and will admit the patient into his services. Instructed by Provider To: Admit As Inpatient - Critical Care Time Critical Care Time: 30-74 min Discharge - Discharge Plan Condition: Fair Disposition: ADMITTED TO [facility] The documentation as recorded by the Cecy vora Matthew accurately reflects the service I personally performed and the decisions made by me, Chidi Robert MD.
[2017-02-19] MEDS ORDERED: Acetaminophen TAB* 325 MG PO PRN (23:54)
[2017-02-19] MEDS ORDERED: Albuterol 2.5 MG/3 ML NEB.SOL* (0.083%) INH PRN (23:54)
[2017-02-19] MEDS ORDERED: CMCS: Melatonin (NF) 3 MG TAB PO PRN (23:56)
[2017-02-19] MEDS ORDERED: Ondansetron INJ* 2 MG/ML VIAL IV PRN (23:56)
--- NOTE | 2017-02-20 00:23 | HP ---
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 He states he was napping at home this evening where he lives with his daughter when he was awoken by paramedics. He is uncertain who or why they were called, but was informed his heart was racing and he was being brought to [facility] ED for evaluation. He denies chest pain/pressure , SOB, palpitations, N/V, sweats, LE swelling/pain, cough, congestion, F/C, diarrhea, or other issues. He states he has been taking his medications as prescribed. ECG shows SVT vs 2:1 AFLUT rate 152, no ischemia. Labs are notable for a troponin of 0.05, K+ 3.6, Mg++ 1.7, a stable mild normocytic anemia, magnesium of 1.7, & albumin of 2.7. CXR shows interval development of LLL atelectasis/ infiltrate w/ small effusion. 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 Imipramine HCl [Tofranil] 50 mg PO DAILY 12/16/16 Omeprazole [Prilosec] 20 mg PO BID 12/16/16 Simvastatin [Zocor 40 MG (NF)] 40 mg PO QPM 12/16/16 Apixaban* [Eliquis*] 5 mg PO BID #60 tab 12/19/16 Diltiazem CD CAP* [Cardizem CD CAP*] 120 mg PO DAILY #30 cap.cd 12/19/16 Ondansetron HCl [Zofran 4 MG TAB] 4 mg PO Q4HR PRN 02/04/17 traZODone TAB* [Desyrel TAB*] 25 mg PO BEDTIME 02/04/17 Colchicine* [Colcrys*] 0.6 mg PO DAILY #30 tab 02/13/17 Magnesium Oxide TAB* [MagOx 400 TAB*] 800 mg PO TID #180 tab 02/13/17 Polyethylene Glycol 3350* [Miralax*] 17 gm PO DAILY PRN #30 packet 02/13/17 Potassium Chlor TAB* [Potassium Chlor TAB 20 MEQ*] 2 tab PO DAILY #0 02/13/17 Sodium Chloride TAB* 1 gm PO BID #60 tab 02/13/17 Sotalol TAB* [Betapace 80 MG TAB*] 80 mg PO BID #60 tab 02/13/17 Allergies Codeine Adverse Reaction (Unknown, Verified 12/15/16 23:31) GI Upset Warfarin Adverse Reaction (Unknown, Verified 02/04/17 18:00) Nausea And Vomiting PSurgHx R RCT repair B TKA SocHx: former smoker, rare alcohol, denies recreational drugs; lives FamHx: positive for HTN ROS: as above, otherwise reviewed and all were negative Constitutional: NAD, normally developed, thin elderly white male vitals: Vital Signs Temp 36.9 C 02/19/17 22:43 Pulse 151 02/19/17 22:43 Resp 18 02/19/17 22:43 BP 109/76 02/19/17 22:43 Pulse Ox 98 02/19/17 22:43 Intake & Output 02/19/17 02/19/17 02/20/17 11:59 23:59 11:59 Weight 63.503 kg HEENM: atraumatic; sclera/conjunctiva: non-icteric/clear; hearing: clinically intact; nares: B scab crusting (denies nosebleeds); oropharynx: clear, mucosa moist Neck: soft tissue: non-tender; thyroid: normal Pulmonary: clear to auscultation R, L with scant crackle in base, good aeration , no accessory muscle use CV: RR/RR, normal S1S2, no carotid bruit, no jugular venous distention, 2+ B DP/ PT, no edema Abdominal: soft, non-distended, non-tender, no rebound/guarding/rigidity, normoactive bowel sounds, no hepatosplenomegaly or masses, no costovertebral angle tenderness Musculoskeletal: general: grossly intact; gait: stable Integumental: normal appearance and texture of exposed skin Psychiatric orientation: AA&O to PPS affect: calm mood: cooperative eye contact: good content: overall reliable, uncertain as to current event responses: timely insight: fair to good Testing: Lab Results 02/19/17 02/19/1717 Range/Units 22:35 22:35 22:35 WBC 5.1 (3.5-10.8) 10^3/ul RBC 3.82 L (4.0-5.4) 10^6/ul Hgb 11.7 L (14.0-18.0) g/dl Hct 35 L (42-52) % MCV 92 (80-94) fL MCH 31 (27-31) pg MCHC 33 (31-36) g/dl RDW 15 (10.5-15) % Plt Count 354 (150-450) 10^3/ul MPV 8 (7.4-10.4) um3 Neut % (Auto) 82.8 (38-83) % Lymph % (Auto) 2.6 L (25-47) % [place] % (Auto) 14.3 H (1-9) % Eos % (Auto) 0 (0-6) % Baso % (Auto) 0.3 (0-2) % Absolute Neuts (auto) 4.2 (1.5-7.7) 10^3/ul Absolute Lymphs (auto) 0.1 L (1.0-4.8) 10^3/ul Absolute Monos (auto) 0.7 (0-0.8) 10^3/ul Absolute Eos (auto) 0 (0-0.6) 10^3/ul Absolute Basos (auto) 0 (0-0.2) 10^3/ul Absolute Nucleated RBC 0.01 10^3/ul Nucleated RBC % 0.2 Sodium 135 (133-145) mmol/L Potassium 3.6 (3.5-5.0) mmol/L Chloride 101 (101-111) mmol/L Carbon Dioxide 20 L (22-32) mmol/L Anion Gap 14 H (2-11) mmol/L BUN 21 (6-24) mg/dL Creatinine 0.97 (0.67-1.17) mg/dL Est GFR ( Amer) 94.6 (>60) Est GFR (Non-Af Amer) 73.6 (>60) BUN/Creatinine Ratio 21.6 H (8-20) Glucose 92 (70-100) mg/dL Lactic Acid 1.1 (0.5-2.0) mmol/L Calcium 8.7 (8.6-10.3) mg/dL Magnesium 1.7 L (1.9-2.7) mg/dL Total Bilirubin 0.40 (0.2-1.0) mg/dL AST 15 (13-39) U/L ALT 10 (7-52) U/L Alkaline Phosphatase 69 (34-104) U/L Troponin I 0.05 H* (<0.04) ng/mL Total Protein 6.4 (6.4-8.9) g/dL Albumin 2.7 L (3.2-5.2) g/dL Globulin 3.7 (2-4) g/dL Albumin/Globulin Ratio 0.7 L (1-3) TSH 0.67 (0.34-5.60) mcIU/mL ECG, personally reviewed: 2:1 AFLUT vs SVT rate 152, no ischemia CXR, personally reviewed: IMPRESSION: SMALL PLEURAL EFFUSION AND LEFT BASILAR INFILTRATE. Impression: 86M presenting with recurrent pAFIB DIAGNOSIS & PLAN Primary pAFIB/AFLUT w/ RVR : rate control : telemetry : supplemental oxygen : trend troponin : supportive care : continue diltiazem, sotalol, & apixaban : consider cardiology consult in AM, if not spontaneously converted : optimize K+ to >4.0 & Mg++ to >2.0 : TSH 01/2017 0.67 new LLL infiltrate/atelectasis w/ small effusion : likely 2nd radioTX for esophageal CA : monitor for infectious s/s : blood & sputum CXs Secondary adenoCA esophagus : continue outpatient management via oncology HTN : continue diltiazem HLD : continue simvastatin GERD : continue omeprazole Admission Rational: CDU observation for AFIB/AFLUT w/ RVR DVTp: SCDs & apixaban Code Status: full HCP: daughter
[2017-02-20] MEDS ORDERED: Diltiazem IV VIAL* 125 MG in D5W 100 ML BAG* 100 ML IV ONE (00:53)
[2017-02-20] MEDS ORDERED: Magnesium Sulfate 2 GM IV* 2 GM/50 ML BAG IVPB ONE (00:57)
[2017-02-20] MEDS: Apixaban* 5 MG TAB PO SCH ×3 (01:29→20:30)
[2017-02-20 01:58] LABS: Troponin I 0.05 ng/mL (<0.04)
[2017-02-20] MEDS: NS 0.9% 1000 ML* 1,000 ML IV SCH ×2 (02:08→15:23)
[2017-02-20] MEDS: Potassium Chlor TAB* 20 MEQ TAB.ER PO SCH ×2 (02:17→05:47)
[2017-02-20] MEDS: Diltiazem DRIP* 100 MG/100 ML ADDV.BAG IVPB ONE ×2 (03:16→21:48)
[2017-02-20] MEDS: Omeprazole CAP* 20 MG PO SCH (05:45)
[2017-02-20 06:28] LABS: Magnesium 2.1 mg/dL (1.9-2.7)
[2017-02-20 07:02] LABS: Troponin I 0.05 ng/mL (<0.04)
--- NOTE | 2017-02-20 08:37 | PN ---
Progress Note - Progress Note SOAP: Subjective: pt well known to me. reports that he laid down to take a nap and woke up to two EMS people, his , and his aide. denies any chest pain, SOB, or sensation of palpitations. overall thinks he feels "ok". finished RT two days ago. reports that he was compliant with his sotalol (his aides have been putting all meds in his pill sorter for him). still not eating well. has lost more weight (152 lbs january 28!!). Objective: Vital Signs Temp Pulse Resp BP Pulse Ox 98.2 F 109 15 125/61 97 02/20/17 01:34 02/20/17 08:00 02/20/17 08:00 02/20/17 08:00 02/20/17 08:00 cachectic appearing lying on side in nad perr eomi op dry crusted nares CTA distant heart sounds, difficult to appreciate soft nt +bs no le edema A+O x 3, nonfocal neurological exam Laboratory Results - last 24 hr 02/19/17 02/19/17 02/19/17 22:35 22:35 22:35 WBC 5.1 RBC 3.82 L Hgb 11.7 L Hct 35 L MCV 92 MCH 31 MCHC 33 RDW 15 Plt Count 354 MPV 8 Neut % (Auto) 82.8 Lymph % (Auto) 2.6 L [place] % (Auto) 14.3 H Eos % (Auto) 0 Baso % (Auto) 0.3 Absolute Neuts (auto) 4.2 Absolute Lymphs (auto) 0.1 L Absolute Monos (auto) 0.7 Absolute Eos (auto) 0 Absolute Basos (auto) 0 Absolute Nucleated RBC 0.01 Nucleated RBC % 0.2 Sodium 135 Potassium 3.6 Chloride 101 Carbon Dioxide 20 L Anion Gap 14 H BUN 21 Creatinine 0.97 Est GFR ( Amer) 94.6 Est GFR (Non-Af Amer) 73.6 BUN/Creatinine Ratio 21.6 H Glucose 92 Lactic Acid 1.1 Calcium 8.7 Magnesium 1.7 L Total Bilirubin 0.40 AST 15 ALT 10 Alkaline Phosphatase 69 Troponin I 0.05 H* Total Protein 6.4 Albumin 2.7 L Globulin 3.7 Albumin/Globulin Ratio 0.7 L TSH 0.67 02/20/17 02/20/17 01:20 05:40 WBC RBC Hgb Hct MCV MCH MCHC RDW Plt Count MPV Neut % (Auto) Lymph % (Auto) [place] % (Auto) Eos % (Auto) Baso % (Auto) Absolute Neuts (auto) Absolute Lymphs (auto) Absolute Monos (auto) Absolute Eos (auto) Absolute Basos (auto) Absolute Nucleated RBC Nucleated RBC % Sodium Potassium Chloride Carbon Dioxide Anion Gap BUN Creatinine Est GFR ( Amer) Est GFR (Non-Af Amer) BUN/Creatinine Ratio Glucose Lactic Acid Calcium Magnesium TNP 2.1 Total Bilirubin AST ALT Alkaline Phosphatase Troponin I 0.05 H* 0.05 H* Total Protein Albumin Globulin Albumin/Globulin Ratio TSH Acetaminophen (Tylenol Tab*) 650 mg PO Q6H PRN PRN Reason: FEVER/PAIN Albuterol (Ventolin 2.5 Mg/3 Ml Neb.Anna*) 2.5 mg INH Q2H PRN PRN Reason: SOB/WHEEZING Apixaban (Eliquis*) 5 mg PO BID [facility] Last Admin: 02/20/17 01:29 Dose: 5 mg Atorvastatin Calcium (Lipitor*) 20 mg PO QPM [facility] Diltiazem HCl (Cardizem Cd Cap*) 120 mg PO DAILY [facility] Docusate Sodium (Colace Cap*) 200 mg PO BID [facility] Heparin Sodium (Porcine) (Heparin Flush Port (Ivad)) 5 ml FLUSH DAILY [facility] PRN Reason: Protocol Last Admin: 02/20/17 07:50 Dose: Not Given Sodium Chloride (Ns 0.9% 1000 Ml*) 1,000 mls @ 85 mls/hr IV PER RATE [facility] Last Admin: 02/20/17 02:08 Dose: 85 mls/hr Diltiazem HCl (Cardizem Iv Advan*) 100 mg in 100 mls @ 5 mls/hr IVPB ED ONCE ONE Stop: 02/20/17 21:59 Last Admin: 02/20/17 03:16 Dose: 5 mls/hr Melatonin (Melatonin (Nf)) 3 mg PO BEDTIME PRN; Protocol PRN Reason: Sleep Omeprazole (Prilosec Cap*) 20 mg PO DAILY@0600 [facility] Last Admin: 02/20/17 05:45 Dose: 20 mg Ondansetron HCl (Zofran Inj*) 4 mg IV Q6H PRN PRN Reason: NAUSEA Sotalol HCl (Betapace Tab*) 120 mg PO BID [facility] Trazodone HCl (Desyrel Tab*) 25 mg PO BEDTIME [facility] Assessment: 86 yo M w locally advanced esophageal cancer just completing chemo/RT ( supoptimal dosing) now being admitted for the third time with afib w RVR. The first admission he was cardioverted. Last admission he was chemically cardioverted. Currently he is on a cardizem drip but in rapid afib. I have discussed with Dr. Delcid who will see him in consultation. I am very concerned about his cachexia. He has lost ~20 lbs in the last month, despite VNS services apparently being in place now. This is not from esophagitis, rather lack of oral intake from desire. I will get a nutrition consult and encourage more PO intake. It may be reasonable to consider short term TPN, though I honestly worry about his ability to manage this at home. Plan: Afib w RVR: discussed with cards. will increase sotalol -cont diltiazem -cont eloquis -repeat echo to look at effusion -watch electrolytes closely,repeating this am -repeat crp and ESR cachexia:severe protein calorie malnutrition CT C/A/P to rule out metastatic disease, though I think this is less likely -nutrition consult -check prealbumin
[2017-02-20] MEDS ORDERED: Sotalol TAB* 80 MG PO SCH (09:00)
[2017-02-20] MEDS: Docusate CAP* 100 MG PO SCH ×2 (09:01→20:29)
[2017-02-20] MEDS: Diltiazem CD CAP* 120 MG PO SCH (09:02)
[2017-02-20] MEDS: Sotalol TAB* 80 MG PO SCH ×2 (09:02→20:31)
[2017-02-20 09:31] LABS: Hematocrit 35 % (42-52); Hemoglobin 11.5 g/dl (14.0-18.0); Mean Corpuscular HGB Conc 33 g/dl (31-36); Mean Corpuscular Hemoglobin 30 pg (27-31); Mean Corpuscular Volume 91 fL (80-94); Mean Platelet Volume 7 um3 (7.4-10.4); Red Blood Count 3.78 10^6/ul (4.0-5.4); Red Cell Distribution Width 16 % (10.5-15); White Blood Count 4.5 10^3/ul (3.5-10.8)
[2017-02-20 09:52] LABS: Albumin 2.4 g/dL (3.2-5.2); BUN/Creatinine Ratio 25.6 (8-20); C Reactive Protein 89.3 mg/L (< 5.00); Calcium 7.8 mg/dL (8.6-10.3); EGFR African American 114.8 (>60); EGFR Non-African American 89.3 (>60); Globulin 3.6 g/dL (2-4); Total Bilirubin 0.4 mg/dL (0.2-1.0)
[2017-02-20 10:13] LABS: Erythrocyte Sed Rate 99 mm/Hr (0-40)
--- NOTE | 2017-02-20 12:28 | ECHO ---
Patient: JAIMEE STUART [facility] Rec#: [id number] : 1930 Date: 02/20/2017 Age: 86y Height: 173 cm / 68.1 in Weight: 136 kg / 299.7 lbs Sex: M BSA: 2.43 Room#: [facility] Admit Date#: 02/20/2017 Type: Inpatient Referring: Earnest ASTORGA,Hailey Mendez Reading: Karla Delcid MD Incident Engineer: Yuliya Guzman RDCS CC: Alejandro Spears MD Transthoracic Echocardiogram Indication: Pericardial Effusion BP: 125/61 HR: 109 Rhythm: NSR with PACs Findings History: Advanced Esophageal Cancer with chemo,HTN,HLD,a-fib, former smoker. This is a lomited echo to follow up on previously noted pericardial effusion. Pericardium: There is a moderate pericardial effusion. There are no signs of significant hemodynamic compromise. There is a circumferential pericardial effusion. The pericardial effusion is fluid filled. A left pleural effusion is present. There is a moderate pleural effusion. Summary: There are no significant changes when compared to the previous study done on 02/12/2017, pericardial effusion is moderate and stable. Conclusions Limited echo for f/u on pericardial effusion. There is a moderate pericardial effusion. There are no signs of significant hemodynamic compromise. There is a circumferential pericardial effusion.ant MOO 0.7-1.1,post PLA1.1-1.9;SAX ant 1.1-1.2,post 1.4-1.5;A4C @LV 1.6-2.2,@RV 1.1-1.6,@apex 0.7,A2C iinf 0.9,ant0.9;A3C 1.4,subcostal @LV1.8. MV inflow 15%,TV inflow 15%,LVOT 11%. There are no significant changes when compared to the previous study done on 02/12/2017, pericardial effusion is moderate and stable.
--- NOTE | 2017-02-20 15:46 | CONS ---
CONSULTATION REPORT: DATE OF CONSULT: 02/20/17 HISTORY OF PRESENT ILLNESS: I was asked by Dr. Tinoco to do a cardiology consult on this 86-year-old male patient for rapid atrial flutter/fibrillation. As you know, he is an 86-year-old who was just discharged from the hospital on February 13. He was hospitalized from February 05 to February 13. He was diagnosed with adenocarcinoma of the esophagus and on radiation treatment. During his hospitalization, he had atrial fibrillation. He was chemically cardioverted with sotalol. He apparently also was started on Eliquis, at the time he was discharged. He does have history of normocytic anemia, hypertension , gastroesophageal reflux disease, and hyperlipidemia, on medical treatment. The story is vague how he was brought to the emergency room yesterday. He was brought by ambulance. He does not recall, probably his called the EMS and brought him in. He was in rapid atrial fibrillation and flutter. He was started on Cardizem IV drip. His potassium was 3.6, magnesium 1.7 and they have been optimized. He does have no symptoms of chest pain, no orthopnea, no PNDs, no dizziness, no syncope, no fever, no chills, no nausea, no vomiting, no hematochezia is appreciated. Dr. Tinoco discussed this patient further with me. This morning, I advised increasing sotalol to 120 mg twice a day, which actually his heart rate now is in the upper 90s and also we reviewed his last echo, which was just done on February 12, that showed normal left ventricular systolic function, moderate mitral insufficiency, mild tricuspid insufficiency, moderate pericardial effusion, and left pleural effusion. PAST MEDICAL HISTORY: Includes adenocarcinoma of the esophagus, paroxysmal atrial flutter/fibrillation, normocytic anemia, hypertension, hyperlipidemia, gastroesophageal reflux disease. PAST SURGICAL HISTORY: Includes below total knee replacement and RCT repair. MEDICATIONS: His medications in the hospital: 1. Colace 200 mg twice a day. 2. Prilosec 20 mg once a day. 3. Sotalol 120 mg twice a day. 4. Cardizem IV adjusted to his heart rate. ALLERGIES: Allergy to CODEINE and also WARFARIN. FAMILY HISTORY: No history of premature coronary artery disease. SOCIAL HISTORY: He used to smoke. Rarely drinks alcohol. No history of illicit drug use. REVIEW OF SYSTEMS: Review of all other systems essentially is negative. PHYSICAL EXAM: On exam, he is awake, alert, and oriented. He is not in acute distress. Vitals: Blood pressure 120/64; pulse 98, is in irregularly irregular ; temperature, he is afebrile. Head and Neck Exam: Normocephalic, atraumatic head. Ears, nose, and throat essentially benign. Neck: Supple. JVD is not elevated. No carotid bruit. No masses in the neck are appreciated. Chest: Diminished air entry at the bases. Heart: Normal S1, S2. Irregularly irregular. No S3. No gallops. Abdomen: Benign, positive bowel sounds. Extremities: Below total knee amputation. CONTRACTS SPECIALIST: No focal deficits. Skin: Normal. Psych: Normal affect and mood. DIAGNOSTIC STUDIES/LAB DATA: His labs showed the following: White blood cell 4.5, hemoglobin 11.5, hematocrit 35, platelets 357. His sodium 134, potassium 4 , chloride 102, total CO2 22, BUN 21, creatinine 0.82, magnesium is 2. AST 14. Troponin 0.05. C-reactive protein is 89. TSH 0.67. Albumin 2.4, globulin 3.6 , total protein is 6. His EKG showed him to be in atrial flutter, heart rate 152. There is no repeat EKG. This was done from February 19 at 2216. His repeat echo is pending at the present time IMPRESSION: The patient is an 86-year-old male patient with; 1. Diagnosed with esophageal cancer, on radiation treatment. 2. Rapid atrial flutter/fibrillation, on sotalol, converted earlier this month to sinus rhythm but he is in rapid atrial flutter/fibrillation. 3. Moderate pericardial effusion. 4. Moderate mitral insufficiency. 5. Mild tricuspid insufficiency. 6. Left pleural effusion. 7. Abnormal EKG as described. 8. Hyperlipidemia, on medical treatment. PLAN: The plan at the present time is for rate control which I agree with. I discussed him with Dr. Tinoco. He is on Cardizem IV drip. I increased his sotalol to 120 mg twice a day. His heart rate is responding, it is in the upper 90s now. He is hemodynamically stable. He is not in congestive heart failure. He has no angina. It is important to keep a close eye on his BUN and creatinine in light of the use of sotalol, and also to make sure his potassium is more than 4 and magnesium is more than 2. He is to stay well hydrated. He is to have low-salt, low-fat diet. He is to avoid stimulants and caffeine. We will evaluate his limited echo which was ordered today for his pericardial effusion. Someone needs to keep in mind about the anticoagulation and the moderate size of the pericardial effusion to be followed very closely. We will see in the next 24 to 48 hours his response to the increase of sotalol and if he will convert chemically to normal sinus rhythm. Thank you very much for asking us to participate in the care of this patient. TIME SPENT: More than half of at least 60-65 plus minutes was in the education and counseling mode, [id number] explaining all of the above plan, answering the patient's concerns and questions. CC: Dr. Tinoco; Hospitalist Service* [id number]/[facility] #: [id number] TEDDY
[2017-02-20] MEDS: Atorvastatin* 20 MG TAB PO SCH (18:47)
[2017-02-20] MEDS: traZODone TAB* 50 MG TAB PO SCH (20:30)
[2017-02-20] MEDS ORDERED: Diltiazem DRIP* 100 MG/100 ML ADDV.BAG IVPB ONE (21:46)
[2017-02-20] MEDS ORDERED: Diltiazem DRIP* 100 MG/100 ML ADDV.BAG IVPB SCH (23:00)
[2017-02-21] MEDS: NS 0.9% 1000 ML* 1,000 ML IV SCH ×2 (04:00→23:00)
[2017-02-21] MEDS: Omeprazole CAP* 20 MG PO SCH (05:23)
[2017-02-21 05:43] LABS: Hematocrit 33 % (42-52); Hemoglobin 11.1 g/dl (14.0-18.0); Mean Corpuscular HGB Conc 33 g/dl (31-36); Mean Corpuscular Hemoglobin 30 pg (27-31); Mean Corpuscular Volume 91 fL (80-94); Mean Platelet Volume 8 um3 (7.4-10.4); Red Blood Count 3.66 10^6/ul (4.0-5.4); Red Cell Distribution Width 16 % (10.5-15); White Blood Count 4.5 10^3/ul (3.5-10.8)
[2017-02-21 06:16] LABS: Albumin 2.1 g/dL (3.2-5.2); BUN/Creatinine Ratio 31.2 (8-20); Calcium 7.6 mg/dL (8.6-10.3); EGFR African American 123.5 (>60); Globulin 2.9 g/dL (2-4); Magnesium 1.7 mg/dL (1.9-2.7); Total Bilirubin 0.4 mg/dL (0.2-1.0)
[2017-02-21] MEDS: Docusate CAP* 100 MG PO SCH ×2 (08:19→21:09)
[2017-02-21] MEDS: Apixaban* 5 MG TAB PO SCH ×2 (08:19→21:10)
[2017-02-21] MEDS: Sotalol TAB* 80 MG PO SCH ×2 (08:19→21:10)
[2017-02-21] MEDS: Diltiazem CD CAP* 120 MG PO SCH (08:20)
--- NOTE | 2017-02-21 09:23 | PN ---
Progress Note - Progress Note SOAP: Subjective: []Feeling OK. States understanding of reason for admission. "I wish they would get it where it would stay." Denies chest pain and pressure. Denies SOB and difficulty breathing. Rare cough. Aware he should try to have Ensure with meals, doesn't love it, "Its Ok if I slug it down." Less emotional today then on prior admissions though states, "I don't see why anyone would get over 85." Medications: Acetaminophen (Tylenol Tab*) 650 mg PO Q6H PRN PRN Reason: FEVER/PAIN Albuterol (Ventolin 2.5 Mg/3 Ml Neb.Anna*) 2.5 mg INH Q2H PRN PRN Reason: SOB/WHEEZING Apixaban (Eliquis*) 5 mg PO BID [facility] Last Admin: 02/21/17 08:19 Dose: 5 mg Atorvastatin Calcium (Lipitor*) 20 mg PO QPM [facility] Last Admin: 02/20/17 18:47 Dose: 20 mg Diltiazem HCl (Cardizem Cd Cap*) 120 mg PO DAILY [facility] Last Admin: 02/21/17 08:20 Dose: 120 mg Docusate Sodium (Colace Cap*) 200 mg PO BID [facility] Last Admin: 02/21/17 08:19 Dose: 200 mg Heparin Sodium (Porcine) (Heparin Flush Port (Ivad)) 5 ml FLUSH DAILY [facility] PRN Reason: Protocol Last Admin: 02/21/17 08:17 Dose: Not Given Sodium Chloride (Ns 0.9% 1000 Ml*) 1,000 mls @ 85 mls/hr IV PER RATE [facility] Last Admin: 02/21/17 04:00 Dose: 85 mls/hr Magnesium Oxide (Magox 400 Tab*) 400 mg PO BID [facility] Melatonin (Melatonin (Nf)) 3 mg PO BEDTIME PRN; Protocol PRN Reason: Sleep Omeprazole (Prilosec Cap*) 20 mg PO DAILY@0600 [facility] Last Admin: 02/21/17 05:23 Dose: 20 mg Ondansetron HCl (Zofran Inj*) 4 mg IV Q6H PRN PRN Reason: NAUSEA Sotalol HCl (Betapace Tab*) 120 mg PO BID [facility] Last Admin: 02/21/17 08:19 Dose: 120 mg Trazodone HCl (Desyrel Tab*) 25 mg PO BEDTIME [facility] Last Admin: 02/20/17 20:30 Dose: 25 mg Objective: [] Vital Signs Temp Pulse Resp BP Pulse Ox 98.6 F 67 16 132/68 98 02/21/17 07:32 02/21/17 07:32 02/21/17 07:41 02/21/17 07:32 02/21/17 07:32 A&Ox3, EOMI, HENDRICKS, neuro grossly non-focal HRR, SR on tele, S1S2, distant heart sounds LS dim. left base, right clear +BS, abd. soft and non-tender +PP=bilat., no edema noted Cachectic Laboratory Results - last 24 hr 02/20/17 02/20/17 02/21/17 09:12 09:12 05:22 WBC 4.5 RBC 3.78 L Hgb 11.5 L Hct 35 L MCV 91 MCH 30 MCHC 33 RDW 16 H Plt Count 357 MPV 7 L Neut % (Auto) 81.5 Lymph % (Auto) 3.4 L [place] % (Auto) 14.8 H Eos % (Auto) 0 Baso % (Auto) 0.3 Absolute Neuts (auto) 3.7 Absolute Lymphs (auto) 0.2 L Absolute Monos (auto) 0.7 Absolute Eos (auto) 0 Absolute Basos (auto) 0 Absolute Nucleated RBC 0 Nucleated RBC % 0 ESR 99 H Sodium 134 137 Potassium 4.0 4.0 Chloride 102 105 Carbon Dioxide 22 25 Anion Gap 10 7 BUN 21 24 Creatinine 0.82 0.77 Est GFR ( Amer) 114.8 123.5 Est GFR (Non-Af Amer) 89.3 96.0 BUN/Creatinine Ratio 25.6 H 31.2 H Glucose 90 113 H Calcium 7.8 L 7.6 L Magnesium 2.0 1.7 L Total Bilirubin 0.40 0.40 AST 14 11 L ALT 9 7 Alkaline Phosphatase 62 62 C-Reactive Protein 89.30 H Total Protein 6.0 L 5.0 L Albumin 2.4 L 2.1 L Globulin 3.6 2.9 Albumin/Globulin Ratio 0.7 L 0.7 L 02/21/17 05:25 WBC 4.5 RBC 3.66 L Hgb 11.1 L Hct 33 L MCV 91 MCH 30 MCHC 33 RDW 16 H Plt Count 337 MPV 8 Neut % (Auto) 81.0 Lymph % (Auto) 2.4 L [place] % (Auto) 16.3 H Eos % (Auto) 0.1 Baso % (Auto) 0.2 Absolute Neuts (auto) 3.7 Absolute Lymphs (auto) 0.1 L Absolute Monos (auto) 0.7 Absolute Eos (auto) 0 Absolute Basos (auto) 0 Absolute Nucleated RBC 0 Nucleated RBC % 0 ESR Sodium Potassium Chloride Carbon Dioxide Anion Gap BUN Creatinine Est GFR ( Amer) Est GFR (Non-Af Amer) BUN/Creatinine Ratio Glucose Calcium Magnesium Total Bilirubin AST ALT Alkaline Phosphatase C-Reactive Protein Total Protein Albumin Globulin Albumin/Globulin Ratio Echo: limited, no significant change in pericardial effusion since 02/12 CXR: left pleural effusion and infiltrate Assessment: []86 yo m with locally advance esophageal cancer admitted with recurrent A.Fib with RVR once again chemically converted following increased dosing of Sotalol. I discussed his case with his primary oncologist and we will further eval. his pleural effusion and cancer with CT scan. Plan: []1. A.Fib: chemically converted last night approx. 0000, appreciate cardiology input 2. Hypomagnesemia:goal >2 therefore will increase PO to 800 mg BID and add 3 gm IV today 3. Pleural Effusion: check CT, consider thoracentesis (if so will hold eliquis starting this evening and plan to do Mon AM) 4. Esophageal Cancer: s/p sub-optimal definitive therapy, CT as above 5. Protein-caloric malnutrition with cachecia: cont. ensure TID, waiting on pre- albumin level Disposition: goal of home with cont.'d assistance, likely Saturday 02/24 - ask for PT eval. and tx.
[2017-02-21] MEDS ORDERED: Magnesium Oxide TAB* 400 MG PO SCH (09:30)
[2017-02-21] MEDS: Magnesium Oxide TAB* 400 MG PO SCH ×2 (09:38→21:09)
[2017-02-21] MEDS ORDERED: Iohexol 300* (CONTRAST) 10 ML SDV IV ONE (11:35)
--- NOTE | 2017-02-21 12:25 | RAD ---
HISTORY: Pleural effusion, esophageal cancer COMPARISONS: December 18, 2016, December 23, 2016 TECHNIQUE: Multiple contiguous axial CT scans were obtained of the chest, abdomen, and pelvis after the administration of intravenous contrast. Coronal and sagittal multiplanar reformations are submitted for review.. Oral contrast was administered. Delayed images were obtained through the abdomen and pelvis. FINDINGS: CHEST NECK AND THYROID: The lower neck and thyroid are unremarkable. CHEST WALL: There is a right-sided chest port HEART AND PERICARDIUM: There is moderate to large pericardial effusion. This is similar to the previous examination. AORTA AND PULMONARY VASCULATURE: The aorta and pulmonary vasculature are normal. MEDIASTINUM: There is no mediastinal lymphadenopathy by size criteria. NANCY: There is no hilar lymphadenopathy by size criteria. AIRWAY AND ESOPHAGUS: There is mucosal thickening along the lower esophagus, consistent with the given history of esophageal malignancy. LUNG PARENCHYMA: There is compressive atelectasis of the left lower lobe PLEURA: There is a small right and moderate to large left pleural effusion. When compared to the previous examination, there has been improvement on the right. BONES AND SOFT TISSUES: Degenerative changes are noted ABDOMEN/PELVIS: LIVER: The liver is normal in shape, size, contour, and attenuation. BILE DUCTS: There is no intrahepatic or extrahepatic biliary dilatation. GALLBLADDER: The gallbladder is normal, without pericholecystic inflammatory change. The stones noted on the previous examination aren't clearly visible on the current examination. PANCREAS: The pancreas is normal, without mass or ductal dilatation. SPLEEN: Normal in size and appearance. UPPER GI TRACT: Evaluation of the gastrointestinal tract is limited by incomplete gastric distention. Again noted is mucosal thickening of the lower esophagus. There is focal thickening of the pylorus which may be an artifact of peristalsis. SMALL BOWEL \T\ MESENTERY: The small bowel is normal in contour, course, and caliber. There is no obstruction or dilatation. COLON: The colon is normal in contour, course, caliber. There is no pericolonic inflammatory change. ADRENALS: Normal bilaterally. KIDNEYS: There is a simple cyst of the midpole the left kidney stable BLADDER: The bladder is smooth in contour. PELVIC ORGANS: The prostate is diffusely enlarged. The seminal vesicles are symmetric. AORTA: There is calcific atherosclerotic disease of the abdominal aorta and its branches, without aneurysmal dilatation IVC: Unremarkable LYMPH NODES: There is no lymphadenopathy by size criteria. ABDOMINAL WALL: There is no evidence for abdominal wall hernia. BONES: Degenerative changes are noted of the spine. OTHER: There is a trace amount of pelvic ascites. IMPRESSION: 1. BILATERAL PLEURAL EFFUSIONS, GREATER ON THE LEFT THAN ON THE RIGHT. ON THE RIGHT, THIS IS IMPROVED COMPARED TO THE MOST RECENT PREVIOUS EXAMINATION. 2. STABLE PERICARDIAL EFFUSION. 3. THERE IS ASSOCIATED COMPRESSIVE ATELECTASIS OF THE LEFT LOWER LOBE. 4. TRACE PELVIC ASCITES. 5. ATHEROSCLEROSIS.
[2017-02-21] MEDS: Atorvastatin* 20 MG TAB PO SCH (17:37)
[2017-02-21] MEDS: traZODone TAB* 50 MG TAB PO SCH (21:11)
[2017-02-22] MEDS: Omeprazole CAP* 20 MG PO SCH (05:16)
[2017-02-22 05:47] LABS: Hematocrit 34 % (42-52); Hemoglobin 11.1 g/dl (14.0-18.0); Mean Corpuscular HGB Conc 33 g/dl (31-36); Mean Corpuscular Hemoglobin 30 pg (27-31); Mean Corpuscular Volume 91 fL (80-94); Mean Platelet Volume 7 um3 (7.4-10.4); Red Blood Count 3.68 10^6/ul (4.0-5.4); Red Cell Distribution Width 16 % (10.5-15); White Blood Count 4.8 10^3/ul (3.5-10.8)
[2017-02-22 05:59] LABS: BUN/Creatinine Ratio 27.1 (8-20); Calcium 7.7 mg/dL (8.6-10.3); EGFR African American 167.9 (>60); EGFR Non-African American 130.6 (>60); Magnesium 1.8 mg/dL (1.9-2.7); Potassium 3.3 mmol/L (3.5-5.0)
[2017-02-22] MEDS: Diltiazem CD CAP* 120 MG PO SCH (08:37)
[2017-02-22] MEDS: Sotalol TAB* 80 MG PO SCH ×2 (08:37→21:55)
[2017-02-22] MEDS: Apixaban* 5 MG TAB PO SCH ×2 (08:38→21:53)
[2017-02-22] MEDS: Docusate CAP* 100 MG PO SCH ×2 (08:38→21:54)
[2017-02-22] MEDS: Magnesium Oxide TAB* 400 MG PO SCH ×2 (08:39→21:54)
[2017-02-22] MEDS ORDERED: Magnesium Sulf 4 GM/100 ML IV* 4,000 MG/100 ML BAG IVPB ONE (09:01)
[2017-02-22] MEDS: KCL 20 MEQ/100 ML IVPREMIX* 20 MEQ/100 ML BAG IV SCH ×3 (13:06→17:30)
[2017-02-22] MEDS ORDERED: Haloperidol INJ IV/IM* 5 MG/ML AMP IV SLOW PU PRN (16:02)
[2017-02-22] MEDS: Atorvastatin* 20 MG TAB PO SCH (17:37)
[2017-02-22] MEDS: traZODone TAB* 50 MG TAB PO SCH (21:56)
[2017-02-23] MEDS: Omeprazole CAP* 20 MG PO SCH (05:35)
[2017-02-23 05:53] LABS: BUN/Creatinine Ratio 16.7 (8-20); Calcium 7.7 mg/dL (8.6-10.3); EGFR African American 133.4 (>60); EGFR Non-African American 103.8 (>60); Potassium 3.5 mmol/L (3.5-5.0)
[2017-02-23] MEDS: Apixaban* 5 MG TAB PO SCH ×2 (08:17→19:48)
[2017-02-23] MEDS: Diltiazem CD CAP* 120 MG PO SCH (08:18)
[2017-02-23] MEDS: Sotalol TAB* 80 MG PO SCH ×2 (08:21→19:45)
[2017-02-23] MEDS: Docusate CAP* 100 MG PO SCH ×2 (08:21→19:37)
[2017-02-23] MEDS: Magnesium Oxide TAB* 400 MG PO SCH ×2 (08:21→19:48)
[2017-02-23] MEDS: KCL 20 MEQ/100 ML IVPREMIX* 20 MEQ/100 ML BAG IV SCH ×2 (09:11→11:30)
[2017-02-23] MEDS: NS 0.9% 1000 ML* 1,000 ML IV SCH (09:11)
[2017-02-23] MEDS: Potassium Chlor TAB* 20 MEQ TAB.ER PO SCH (09:13)
[2017-02-23] MEDS: Atorvastatin* 20 MG TAB PO SCH (17:02)
[2017-02-23] MEDS: traZODone TAB* 50 MG TAB PO SCH (19:49)
[2017-02-24 04:57] LABS: BUN/Creatinine Ratio 16.9 (8-20); Calcium 7.8 mg/dL (8.6-10.3); EGFR African American 113.2 (>60); EGFR Non-African American 88.1 (>60); Magnesium 1.7 mg/dL (1.9-2.7); Potassium 3.7 mmol/L (3.5-5.0)
[2017-02-24] MEDS: Omeprazole CAP* 20 MG PO SCH (06:23)
[2017-02-24 07:46] VITALS: BP 130/52
[2017-02-24] MEDS: Diltiazem CD CAP* 120 MG PO SCH (09:14)
[2017-02-24] MEDS: Sotalol TAB* 80 MG PO SCH (09:14)
[2017-02-24] MEDS: Magnesium Oxide TAB* 400 MG PO SCH (09:15)
[2017-02-24] MEDS: Docusate CAP* 100 MG PO SCH (09:15)
[2017-02-24] MEDS: Potassium Chlor TAB* 20 MEQ TAB.ER PO SCH (09:15)
[2017-02-24] MEDS: Apixaban* 5 MG TAB PO SCH (09:15)
--- NOTE | 2017-02-24 09:43 | PN ---
Progress Note - Progress Note SOAP: Subjective: []Feeling better. Wants to go home but willing to stay. No chest pain and no SOB. Eating well and not in pain. Home support for discharge is not clear. Acetaminophen (Tylenol Tab*) 650 mg PO Q6H PRN PRN Reason: FEVER/PAIN Albuterol (Ventolin 2.5 Mg/3 Ml Neb.Anna*) 2.5 mg INH Q2H PRN PRN Reason: SOB/WHEEZING Apixaban (Eliquis*) 5 mg PO BID [facility] Last Admin: 02/24/17 09:15 Dose: 5 mg Atorvastatin Calcium (Lipitor*) 20 mg PO QPM [facility] Last Admin: 02/23/17 17:02 Dose: 20 mg Diltiazem HCl (Cardizem Cd Cap*) 120 mg PO DAILY [facility] Last Admin: 02/24/17 09:14 Dose: 120 mg Docusate Sodium (Colace Cap*) 200 mg PO BID [facility] Last Admin: 02/24/17 09:15 Dose: 200 mg Haloperidol Lactate (Haldol Inj Iv/Im*) 1 mg IV SLOW PU Q4H PRN PRN Reason: AGITATION Heparin Sodium (Porcine) (Heparin Flush Port (Ivad)) 5 ml FLUSH DAILY [facility] PRN Reason: Protocol Last Admin: 02/23/17 07:14 Dose: Not Given Sodium Chloride (Ns 0.9% 1000 Ml*) 1,000 mls @ 50 mls/hr IV PER RATE [facility] Last Admin: 02/23/17 09:11 Dose: 50 mls/hr Magnesium Oxide (Magox 400 Tab*) 800 mg PO BID [facility] Last Admin: 02/24/17 09:15 Dose: 800 mg Melatonin (Melatonin (Nf)) 3 mg PO BEDTIME PRN; Protocol PRN Reason: Sleep Omeprazole (Prilosec Cap*) 20 mg PO DAILY@0600 [facility] Last Admin: 02/24/17 06:23 Dose: Not Given Ondansetron HCl (Zofran Inj*) 4 mg IV Q6H PRN PRN Reason: NAUSEA Potassium Chloride (Klor Con Er Tab*) 20 meq PO DAILY [facility] Last Admin: 02/24/17 09:15 Dose: 20 meq Sotalol HCl (Betapace Tab*) 120 mg PO BID [facility] Last Admin: 02/24/17 09:14 Dose: 120 mg Trazodone HCl (Desyrel Tab*) 25 mg PO BEDTIME [facility] Last Admin: 02/23/17 19:49 Dose: 25 mg Objective: [] Vital Signs Temp Pulse Resp BP Pulse Ox 98.2 F 133 16 130/52 89 02/24/17 04:05 02/24/17 07:33 02/24/17 07:33 02/24/17 07:33 02/24/17 07:33 HEENT - no oral lesions. No LAD and no JVD CTA Regular on exam, S1S2 +BS, NT ND Ext w/o edema Neuro - oriented to hospital and reason for admission Assessment: []86 year old with afib and RVR as well as history of esophageal cancer but currently not on therapy, dementia. Plan: []1. a-fib. SR at this time. Monitor reviles periods of afib at 130s, asymptomatic. At this time continue current medication and I suspect can have cardiology follow up at home. 2. Placement. He wants to go home but is cooperative this am. Will discuss with discharge planning. Medically appropriate for discharge. 3. Low MG, will give 3 gm today, continue oral. 4. Continue Eliquis 5. Stop IVF
[2017-02-24] MEDS: NS 0.9% 1000 ML* 1,000 ML IV SCH (09:57)
--- NOTE | 2017-02-25 01:41 | DS ---
DISCHARGE SUMMARY: DATE OF ADMISSION: 02/19/17 DATE OF DISCHARGE: 02/24/17 REASON FOR ADMISSION: 1. Mental status changes. 2. Atrial fibrillation with RVR. 3. History of esophageal cancer. HOSPITAL COURSE: Mr. Patterson presented on 02/20/17 after presenting with altered mental status and was found to have rapid atrial fibrillation with a heart rate into the 150s. He felt like his heart was racing. He denied chest pain, pressure, or shortness of breath. He came into the emergency room, showed A- flutter of 152 on his EKG, slightly low potassium 3.7, and mag of 1.7. He had negative troponins. He was seen by Cardiology. He had chemical conversion to sinus rhythm. Sotalol had been at 80 mg twice a day and it was increased to 120 mg twice a day and he appeared to tolerate that well. This morning, he is feeling well and he is very anxious to go home. It has been difficult to keep him in the hospital. He has some dementia and he is very agitated at times. He did have his heart rate go up into the 130s several times overnight, but tolerated that without symptoms. He is looking well, eating well, and having bowel movements. Plan will be discharge today on increase sotalol. MEDICATIONS: 1. Eliquis 5 mg p.o. b.i.d. 2. Simvastatin 40 mg p.o. daily. 3. Diltiazem 120 mg CD formulation daily. 4. Trazodone 50 mg p.o. q.h.s. 5. Colchicine 0.6 mg p.r.n. 6. Imipramine 50 mg b.i.d. 7. Magnesium oxide 800 mg t.i.d. 8. Omeprazole 20 mg daily. 9. Ondansetron 4 mg every 6 hours p.r.n. 10. MiraLAX 17 g daily p.r.n. 11. Potassium chloride 20 mEq daily. 12. Sodium chloride 1 g b.i.d. 13. Carafate 1 g/10 mL t.i.d. We will make sure he follows up with Dr. Tinoco in the next 1 to 2 weeks as well as primary care and will touch base with Cardiology if they need to see him back as well. There are no tests pending at the time of discharge. Magnesium was 1.7 this morning and g IV before he leaves. [id number]/[facility] #: [id number] TEDDY
== END 2017-02-24 13:56 | disposition home or self-care (01) | DRG 308 ==
LOC: ED 21:58 → OBSVTOIN 23:45 → MEDTELE 23:45
PROVIDERS: ADMIT Hospitalist; ATTEND Internal Medicine Hematology & Oncology
DX: I48.0 Paroxysmal atrial fibrillation (principal); E43 Unspecified severe protein-calorie malnutrition; J90 Pleural effusion, not elsewhere classified; I31.3 Pericardial effusion (noninflammatory); R64 Cachexia; E83.42 Hypomagnesemia; C15.9 Malignant neoplasm of esophagus, unspecified; I48.92 Unspecified atrial flutter; G62.9 Polyneuropathy, unspecified; E78.00 Pure hypercholesterolemia, unspecified; I10 Essential (primary) hypertension; K21.9 Gastro-esophageal reflux disease without esophagitis; F32.9 Major depressive disorder, single episode, unspecified; H91.90 Unspecified hearing loss, unspecified ear; E78.5 Hyperlipidemia, unspecified; D64.9 Anemia, unspecified; I08.1 Rheumatic disorders of both mitral and tricuspid valves; I47.1 Supraventricular tachycardia; F03.90 Unspecified dementia, unspecified severity, without behavioral disturbance, psychotic disturbance, mood disturbance, and anxiety; Z92.21 Personal history of antineoplastic chemotherapy; Z88.6 Allergy status to analgesic agent; Z88.8 Allergy status to other drugs, medicaments and biological substances; Z97.4 Presence of external hearing-aid; Z87.891 Personal history of nicotine dependence; Z82.49 Family history of ischemic heart disease and other diseases of the circulatory system; Z68.20 Body mass index [BMI] 20.0-20.9, adult; Z79.01 Long term (current) use of anticoagulants; Z96.653 Presence of artificial knee joint, bilateral
CPT/HCPCS: 36415; 71020; 71260; 74177; 80048; 80053; 83605; 83735; 84134; 84443; 84484; 85025; 85652; 86140; 87040; 93005; 93308; 99233; 99239; A9270-GY; J1642; J3475; J3480; Q9967

== ENCOUNTER 2017-03-05 02:14 | Inpatient (IN) | payer MEDICARE ==
--- NOTE | 2017-03-05 02:41 | ED ---
Cecy Gomes Matthew, scribed for Chidi Robert MD on 03/05/17 at 0241 . Dizziness - HPI Summary HPI Summary: An 86 y/o male presents to the ED with dizziness since yesterday evening. Per EMS, he was at the kitchen table and was unable to stand up. Associated symptoms at that time include dizziness, SOB, and general weakness. The patient lives with his . The nursing home administrator said the patient was fine yesterday. The patient was discharged from [facility] a week ago. Earlier in the day, he states that he wasn't feeling himself. Hx of esophageal CA - History Of Current Complaint Chief Complaint: EDDizziness Stated Complaint: GENERAL ILLNESS/WEAKNESS Time Seen by Provider: 03/05/17 02:17 Hx Obtained From: Patient Onset/Duration: Still Present Timing: Constant Severity Initially: Moderate Severity Currently: Moderate Character: Dizzy Aggravating Factor(s): Position Change Alleviating Factor(s): Nothing Associated Signs And Symptoms: Positive: SOB, Other: - Weakness - Allergies/Home Medications Allergies/Adverse Reactions: Allergies Allergy/AdvReac Type Severity Reaction Status Date / Time Codeine AdvReac Unknown GI Upset Verified 03/05/17 06:42 Warfarin AdvReac Unknown Nausea And Verified 03/05/17 06:42 Vomiting PMH/Surg Hx/FS Hx/Imm Hx Endocrine/Hematology History: Denies: Hx Diabetes Cardiovascular History: Reports: Hx Angina, Hx Hypercholesterolemia Denies: Hx Hypertension, Hx Myocardial Infarction, Hx Valvular Heart Disease , Other Cardiovascular Problems/Disorders - Afib, arrhythmia Respiratory History: Denies: Hx Asthma, Hx Chronic Obstructive Pulmonary Disease (COPD) GI History: Reports: Hx Gastroesophageal Reflux Disease, Other GI Disorders - anorexia nervosa History: Denies: Hx Dialysis, Hx Renal Disease Musculoskeletal History: Reports: Hx Back Problems - Comp fxs Sensory History: Reports: Hx Contacts or Glasses - glasses, Hx Hearing Aid, Hx Hearing Problem - pt is [facility] Opthamlomology History: Reports: Hx Contacts or Glasses - glasses Neurological History: Reports: Other Neuro Impairments/Disorders - peripheral neuropathy Denies: Hx Dementia, Hx Seizures Psychiatric History: Reports: Hx Depression - Cancer History Cancer Type, Location and Year: esophogeal cancer - Surgical History Surgery Procedure, Year, and Place: right shoulder tear repair. both knees replaced Infectious Disease History: Denies: Hx Clostridium Difficile, Hx Hepatitis, Hx Human Immunodeficiency Virus (HIV), Hx of Known/Suspected MRSA, Hx Shingles, Hx Tuberculosis, History Other Infectious Disease, Traveled Outside the [place] in Last 30 Days - Family History Known Family History: Positive: Cardiac Disease - Social History Alcohol Use: Rare Substance Use Type: Reports: None Smoking Status (MU): Former Smoker Have You Smoked in the Last Year: No Review of Systems Constitutional: Negative Eyes: Negative ENT: Negative Cardiovascular: Negative Positive: Shortness Of Breath Gastrointestinal: Negative Genitourinary: Negative Musculoskeletal: Negative Skin: Negative Neurological: Other - Dizziness Positive: Weakness - general Psychological: Normal All Other Systems Reviewed And Are Negative: Yes Physical Exam Triage Information Reviewed: Yes Vital Signs On Initial Exam: Initial Vitals Temp Pulse Resp BP Pulse Ox 97.6 F 115 15 89/60 89 03/05/17 02:18 03/05/17 02:18 03/05/17 02:18 03/05/17 02:18 03/05/17 02:18 Vital Signs Reviewed: Yes Appearance: Positive: Ill-Appearing, Cachectic Skin: Positive: Warm, Dry Head/Face: Positive: Normal Head/Face Inspection Eyes: Positive: MAX ENT: Positive: Hearing grossly normal Neck: Positive: Supple Respiratory/Lung Sounds: Positive: Breath Sounds Present, Decreased Breath Sounds - dull lt lower lung field Cardiovascular: Positive: Normal - distant Abdomen Description: Positive: Nontender, Soft Neurological: Positive: Alert, Oriented to Person Place, Time Psychiatric: Positive: Anxious Diagnostics - Vital Signs Vital Signs Temp Pulse Resp BP Pulse Ox 03/05/17 02:18 97.6 F 115 15 89/60 89 - Laboratory Result Diagrams: 03/05/17 03:30 03/05/17 10:55 Lab Statement: Any lab studies that have been ordered have been reviewed, and results considered in the medical decision making process. - Radiology CXR Xray Interpretation: Positive (See Comments) - small bilateral pleural effusion Radiology Interpretation Completed By: ED Physician - CT CTA Chest CT Interpretation: Positive (See Comments) - Moderate to large pericardial effusion. Large left and small right pleural effusion with subjacent atelectasis. Underlying left lower lobe consolidation cannot be excluded. Mild centrilobular emphysema. Left renal cyst. CT Interpretation Completed By: Radiologist - EKG 02:24 Cardiac Rate: Tachycardia - 110 EKG Rhythm: Sinus Tachycardia Dizzy Course/Dx - Diagnoses Provider Diagnoses: Pericardial effusion - Provider Notifications Discussed Care Of Patient with: Dr. Jason (Hospitalist) at 06:29 -- Notified of patient's history and recommends consulting with the merchandising consultant oncologist. Instructed by Provider To: Admit As Inpatient Discharge - Discharge Plan Condition: Guarded Disposition: ADMITTED TO [facility] The documentation as recorded by the Cecy vora Matthew accurately reflects the service I personally performed and the decisions made by , Chidi Robert MD.
[2017-03-05 03:43] LABS: Hematocrit 34 % (42-52); Hemoglobin 11.3 g/dl (14.0-18.0); Mean Corpuscular HGB Conc 33 g/dl (31-36); Mean Corpuscular Hemoglobin 31 pg (27-31); Mean Corpuscular Volume 92 fL (80-94); Mean Platelet Volume 8 um3 (7.4-10.4); Red Blood Count 3.71 10^6/ul (4.0-5.4); Red Cell Distribution Width 18 % (10.5-15); White Blood Count 7.7 10^3/ul (3.5-10.8)
[2017-03-05 03:53] LABS: Albumin 2.5 g/dL (3.2-5.2); BUN/Creatinine Ratio 19.1 (8-20); Calcium 8.6 mg/dL (8.6-10.3); EGFR African American 77.7 (>60); EGFR Non-African American 60.4 (>60); Globulin 3.6 g/dL (2-4); Magnesium 1.9 mg/dL (1.9-2.7); Potassium 4.5 mmol/L (3.5-5.0); Total Bilirubin 0.4 mg/dL (0.2-1.0); Total Protein 6.1 g/dL (6.4-8.9)
[2017-03-05 04:05] LABS: Troponin I 0.05 ng/mL (<0.04)
[2017-03-05] MEDS ORDERED: Iohexol 350* (CONTRAST) 500 ML MDV IV ONE (05:18)
[2017-03-05] MEDS: NS 0.9% 1000 ML* 1,000 ML IV SCH ×4 (06:27→16:59)
--- NOTE | 2017-03-05 07:54 | RAD ---
INDICATION: Chest pain COMPARISON: February 19, 2017 TECHNIQUE: PA and lateral dual-energy views were obtained. FINDINGS: Bones/Soft Tissues: There are no acute bony findings. There is a right-sided [id number]-[id number] catheter terminating in the superior vena cava. Cardiomediastinal: The cardiomediastinal silhouette is normal. Lungs: The right lung is clear. There is persistent airspace disease in the left lung base without significant change. Pleura: Moderate sized left-sided pleural effusion, unchanged. Other: None IMPRESSION: LEFT-SIDED INFILTRATE OR ATELECTASIS WITH PLEURAL EFFUSION, UNCHANGED.
--- NOTE | 2017-03-05 08:01 | RAD ---
INDICATION: Shortness of breath and elevated d-dimer. COMPARISON: Similar examination dated December 16, 2016 TECHNIQUE: Axial source images were acquired following the administration of 64 mL Omnipaque [address] angiographic technique. Coronal and sagittal reconstructed images were constructed and reviewed. FINDINGS: There is a right subclavian PowerPort with the tip terminating in the SVC. There there are no filling defects in the pulmonary arteries to indicate acute pulmonary embolic disease. There is a small right and moderate left pleural effusion. The lungs exhibit diffuse centrilobular emphysematous changes. There is compressive atelectasis adjacent to the left-sided pleural effusion. There is a moderate pericardial effusion that is larger when compared to the December 16, 2016 CT examination. Contrast is seen refluxing as far as the IVC and hepatic veins.. Again seen are multiple mediastinal and periclavicular lymph nodes, similar in appearance to the December 16, 2016 CT examination. None are pathologically enlarged. Multilevel degenerative changes of the thoracic spine include loss of intervertebral disc height and bridging marginal osteophyte formation. There are no sinister appearing bone lesions. Again seen is a small hiatal hernia and circumferential thickening of the distal esophagus similar appearance to the previous CT examination. IMPRESSION: 1. No CT of evidence of pulmonary embolism. 2. There has been a small interval increase in the size of the pericardial effusion and left pleural effusion relative to the February 21, 2017 CT examination. 3. Reflux of intravenously injected contrast into the hepatic veins and IVC can be seen in the setting of congestive heart failure/right heart failure. 4. Additional chronic, degenerative and iatrogenic findings described in body of report.
[2017-03-05] MEDS ORDERED: NS 0.9% 1000 ML* 2,000 ML IV ONE ×2 (08:19→09:43)
--- NOTE | 2017-03-05 10:00 | PN ---
Progress Note - Progress Note SOAP: Subjective: Pt well known to me from outpatient setting. 86 yo M w locally advanced esophageal CA dx in 11/2016 when he presented with Afib w rvr and was incidentally found to have esophageal thickening. he was cardioverted on that admission and started on eloquis after his esophageal biopsy. he was treated with combined modality therapy with carbo/5FU/RT, though notably only received 1 cycle of carbo (did get most of 5FU). He has had 2 subsequent admissions for afib w RVR in the setting of dehydration and electrolyte imbalance. he was placed on sotalol and spontaneously converted both times. He was noted to have a moderate-large pericardial effusion and left pleural effusion, but no tamponade physisiology. We have been discussing possible drainage of these, however had planned (in consultation with Dr. Barrios) to repeat and echo in 4 weeks and if still present hold his eloquis and tap. He was last seen in my office at which time he had gained 4 lbs and had a home health aide that was encouraging PO intake. He comes in now after feeling weak and dizzy and vomiting trying to get up several times yesterday. Apparently today his family activated EMS. He was found to be in aflutter with profound hypotension. He is now in the ICU receiving aggressive hydration. He does report mild midsternal chest discomfort and continued anorexia. Objective: Vital Signs Temp Pulse Resp BP Pulse Ox 97.8 F 135 20 89/60 98 03/05/17 09:13 03/05/17 09:13 03/05/17 09:13 03/05/17 09:13 03/05/17 09:01 cachectic appearing escar on bottom lip OP dry dec bs bases, poor effort unable to appreciate heart sounds soft thin nt no le edema oriented to hospital, able to tell me that i am Dr. Tinoco, grossly nonfocal Laboratory Results - last 24 hr 03/05/17 03/05/17 03/05/17 03:30 03:30 03:30 WBC 7.7 RBC 3.71 L Hgb 11.3 L Hct 34 L MCV 92 MCH 31 MCHC 33 RDW 18 H Plt Count 229 MPV 8 Neut % (Auto) 83.6 H Lymph % (Auto) 7.8 L [place] % (Auto) 8.0 Eos % (Auto) 0.1 Baso % (Auto) 0.5 Absolute Neuts (auto) 6.5 Absolute Lymphs (auto) 0.6 L Absolute Monos (auto) 0.6 Absolute Eos (auto) 0 Absolute Basos (auto) 0 Absolute Nucleated RBC 0.01 Nucleated RBC % 0.1 INR (Anticoag Therapy) 1.72 H D-Dimer, Quantitative > 1050 H Sodium 131 L Potassium 4.5 Chloride 101 Carbon Dioxide 22 Anion Gap 8 BUN 22 Creatinine 1.15 Est GFR ( Amer) 77.7 Est GFR (Non-Af Amer) 60.4 BUN/Creatinine Ratio 19.1 Glucose 154 H Lactic Acid Calcium 8.6 Magnesium 1.9 Total Bilirubin 0.40 AST 20 ALT 12 Alkaline Phosphatase 70 Troponin I 0.05 H* Total Protein 6.1 L Albumin 2.5 L Globulin 3.6 Albumin/Globulin Ratio 0.7 L 03/05/17 03:30 WBC RBC Hgb Hct MCV MCH MCHC RDW Plt Count MPV Neut % (Auto) Lymph % (Auto) Cr[place]enden % (Auto) Eos % (Auto) Baso % (Auto) Absolute Neuts (auto) Absolute Lymphs (auto) Absolute Monos (auto) Absolute Eos (auto) Absolute Basos (auto) Absolute Nucleated RBC Nucleated RBC % INR (Anticoag Therapy) D-Dimer, Quantitative Sodium Potassium Chloride Carbon Dioxide Anion Gap BUN Creatinine Est GFR ( Amer) Est GFR (Non-Af Amer) BUN/Creatinine Ratio Glucose Lactic Acid 3.4 H* Calcium Magnesium Total Bilirubin AST ALT Alkaline Phosphatase Troponin I Total Protein Albumin Globulin Albumin/Globulin Ratio CTA: no PE, stable pericardial eff, larger Left and small right effusion Assessment: 86 yo M w locally advance esophageal CA sp curative intent chemoRT now admitted for the 4th time with rapid afib and this time hypotensive. He has a large pericardial effusion but no tamponade physiology per Dr. Barrios. The etiology of his effusion is unclear, but I do think we will need to tap it this admission. If no hemodynamic compromise from this we could let his eloquis wear off and arrange for this on Friday with cytology. Dr. Barrios questions possible window with surgery as a more permanent solution (with thoracentesis possibly at the same time). If he needs this urgently I would advise consideration of kcentra 50U/Kg. appreciate ICU/CCM management of this difficult patient and we will continue to follow along closely.
--- NOTE | 2017-03-05 10:46 | HP ---
H&P (Free Text) History and Physical: CRITICAL CARE MEDICINE DATE: 03/05/17 TIME: 930 PRIMARY CARE PROVIDER: REFERRING PROVIDER: Surjit REASON/CHIEF COMPLAINT: weakness HISTORY OF PRESENT ILLNESS: 86 yo M with locally advanced esophageal CA s/p suboptimal carbo/5-FU/RT txwith h/o afib and rvr in past, with attempted cardioversions, and sotalol tx on chronic anticoagulation with recent pericardial and left pleural effusions on CT with clinical f/u as no signs of tamponade who re-presents during the night with weakness, dizziness and generalize malaise. He also reports vomiting and loose stool. Receiving IVF in ED with onc, cards and icu consulted and admitted to icu. REVIEW OF SYSTEMS: As per HPI. limited otherwise from pt given acuity. PAST MEDICAL HISTORY: As per HPI. MEDICATIONS: Reviewed. ALLERGIES: Codeine, coumadin SOCIAL HISTORY: Reviewed. . living at home. FAMILY HISTORY: Noncontributory at present. PHYSICAL EXAM: Cachexic. Vital Signs: Reviewed. Neurologic: awake. communicating. HEENT: anicteric, perrl, mm dry. no jvp Cardiovascular: irr, irr, distant, but no rub nor m appreciated. Respiratory: dec on left bases but no rales. barrel chest with poor overall AP excursion but not working Abdomen: thin, soft, nt Extremities: cold with distal cyanosis. Access: piv, R chest port LABS: Reviewed. IMAGING: Reviewed. MEDICATIONS: Reviewed. ASSESSMENT: 86 M Hypovolemic shock Afib RVR on chronic Acute on chronic right heart failure Pericardial effusion - non tamponade phys but can exaccerbate R heart dysfx Left pleural effusion h/o Esophageal ca Anticoagulated PLAN: Neurologic: communicating. no pain Cardiovascular: underfilled and seems to have R heart failure moreso exaccerabted. getting echo now. No immediate need to drain effusion and can let cards f/u chronic needs. Reciving 5L NS and then dec needs. Do question component of adrenal insuff and give a trial of pulse steroids. Respiratory: On O2 just to support hypovolemic shock. Not working to breath despite likely acid. check vbg. Gastrointestinal: can try diet later. has weight loss and concerns for effusions being metastatic with higher metabolic demands then he can met as outpt. could have a viral gastroenteritis but seems more sec to his hypovolemia. Renal/Metabolic: Cr 1.15 is quite significant with his lack of muscle mass. Fluids and f/u. Infectious Disease: no infectious signs, although he certainly can be at risk with atypical signs but no empiric needs at present. Hematology: onc evaluating. on his outpt eliquis. can keep off for now and see if cards desires to plan for mopre invasive diagnostics. Endocrine: give dose stress dose steroids. check random cortisol. tsh was ok last month. Musculoskeletal: oob later Psych/Social: will look to update family Supportive and preventative care as ordered. SUP: po VTE prophylaxis: eliquis Disposition: ICU Code Status: Full Critical Care Time: 45min D/w OncJaswinder Ratliff DO
[2017-03-05] MEDS: Hydrocortisone INJ* 100 MG VIAL IV SCH ×2 (11:07→17:48)
[2017-03-05 11:10] LABS: Venous Bicarbonate HCO3 20.6 mmol/L (24-28)
[2017-03-05 11:27] LABS: BUN/Creatinine Ratio 20.8 (8-20); Calcium 7.5 mg/dL (8.6-10.3); EGFR African American 85.4 (>60); EGFR Non-African American 66.4 (>60); Potassium 4.4 mmol/L (3.5-5.0)
--- NOTE | 2017-03-05 11:31 | ECHO ---
Patient: JAIMEE STUART [facility] Rec#: [id number] : 1930 Date: 03/05/2017 Age: 86y Height: 172.72 cm / 68.0 in Weight: 69.4 kg / 153.0 lbs Sex: M BSA: 1.82 Room#: ICU 4 Admit Date#: 03/05/2017 Type: Inpatient Referring: Daniel Eddy MD Reading: Colleen Barrios MD Dough Cutter: Yuliya Gonzalez,RDCS,RDMS CC: Alejandro Spears MD Transthoracic Echocardiogram Indication: Hypotension BP: 61/50 HR: 131 Rhythm: A-Fib Indications Hypotension Findings History: Esophageal cancer, chemotherapy, Afin, HTN, HLD, pericardial effusion, pleural effusion. Technical Comments: The study quality is fair. Completed 1105 The study is technically limited due to the patient's smoking history. Left Ventricle: The left ventricular chamber size is decreased. Mild concentric left ventricular hypertrophy is observed. Global left ventricular wall motion and contractility are within normal limits.Atrial fibrillation and small underfilled ventricle make estimate of EF difficult, but appears normal to hyperdynamic. Evidence of mild/borderline LVOT obstruction with dagger shaped LVOT veloctiy envelopes at normal velocity. The assessment of diastolic function is non-diagnostic. Left Atrium: The left atrial chamber size is normal. Right Ventricle: The right ventricle wall thickness is mildly increased. The right ventricular cavity size is normal. The right ventricular global systolic function is moderately reduced. Right Atrium: The right atrial cavity size is normal. Aortic Valve: The aortic valve leaflets are mildly thickened. There is no evidence of aortic regurgitation. There is no evidence of aortic stenosis. Mitral Valve: There is mitral annular calcification. The mitral valve leaflets are mildly thickened. There is trace to mild mitral regurgitation. There is no evidence of mitral stenosis. Tricuspid Valve: The tricuspid valve leaflets are normal. There is trace tricuspid regurgitation. No pulmonary hypertension is noted. Pulmonic Valve: The pulmonic valve structure is not well visualized. Pericardium: There is a moderate pericardial effusion. There are no signs of significant hemodynamic compromise.Effusion measurements: PLAX: 1.9cm (RV) and 1.3cm (LV), A4C 1.4cm (RV apex) and 1.6cm (LV) Subcostal 1.4cm (RV) and 2.0cm (LV) respiratory variation in MV 28% LVOT 12% A left pleural effusion is present. Aorta: The ascending aorta is not well visualized. There is no dilatation of the aortic arch. The aortic root is normal in size. Pulmonary Artery: The main pulmonary artery is not well visualized. Venous: The inferior vena cava is dilated. There is less than 50% respiratory change in the inferior vena cava dimension. Conclusions Mild concentric left ventricular hypertrophy and chamber size is decreased. Global left ventricular wall motion and contractility are within normal limits, atrial fibrillation and small underfilled ventricle make estimate of EF difficult, but appears normal to hyperdynamic. Evidence of mild/borderline LVOT obstruction with dagger shaped LVOT veloctiy envelopes at normal velocity. Right ventricular hypertrophy and right ventricular global systolic function is moderately reduced. The aortic valve leaflets are mildly thickened with normal function. There is trace to mild mitral regurgitation. No pulmonary hypertension is noted. There is a moderate pericardial effusion. There are no signs of significant hemodynamic compromise. A left pleural effusion is present. Compared with prior echo of 02/20/17 (limited) pericardial effusion is stable. Compared with full echo of 02/12/17 left ventricular function not significantly changed, RV hypokinesis has progressed from mild, MR improved from moderate. Measurements Name Value Normal Range RVIDd (AP) 2D 2.6 cm (0.9 - 2.6) RVDdMajor (2D) 2.2 cm (2.2 - 4.4) RAd ISD 4CH 4.5 cm (3.4 - 4.9) RA (A4C)W 4 cm (2.9 - 4.6) IVSd (2D) 1.2 cm (0.6 - 1) LVPWd (2D) 1.2 cm (0.6 - 1) LVIDd (2D) 3 cm (3.6 - 5.4) LVIDs (2D) 2.2 cm - LV FS (2D) 26 % (25 - 45) Aortic Annulus 2 cm (1.4 - 2.6) Ao root diameter (2D) 3.5 cm (2.1 - 3.5) Aortic arch 3.2 cm (1.8 - 3.4) LA dimension (AP) 2D 3.5 cm (2.3 - 3.8) LAd ISD 4CH 4.4 cm (2.9 - 5.3) LA ISD 4CH W 4 cm (2.5 - 4.5) Name Value Normal Range LA ESV SP 4CH (A/L) 39.73 ml - LA ESV SP 2CH (A/L) 59.39 ml - LA ESV BP (A/L) 53.27 ml - LA ESV BP (A/L) index 29 ml/m2 - LA ESV SP 4CH (MOD) 35.95 ml - LA ESV SP 2CH (MOD) 54.82 ml - Name Value Normal Range MV E-wave Vmax 0.7 m/sec - MV deceleration time 117 msec - MV A-wave Vmax 0.8 m/sec - MV E:A ratio 0.9 ratio - LV lateral e' Vmax 0.08 m/sec - LV E:e' lateral ratio 9 ratio - Name Value Normal Range AV Vmax 0.7 m/sec - AV peak gradient 2 mmHg - LVOT Vmax 0.6 m/sec - LVOT peak gradient 1.4 mmHg - Name Value Normal Range TR Vmax 2.2 m/sec - TR peak gradient 19 mmHg - RAP 8 mmHg - RVSP 27 mmHg - IVC diameter 2.4 cm - Name Value Normal Range PV Vmax 0.7 m/sec - PV peak gradient 2 mmHg -
[2017-03-05 11:37] LABS: Troponin I 0.05 ng/mL (<0.04)
[2017-03-05] MEDS ORDERED: Midazolam* 1 MG/ML 5 ML VIAL (5 MG) ONE (12:06)
[2017-03-05] MEDS ORDERED: fentaNYL* 50 MCG/ML 2 ML VIAL (100 MCG VIAL) ONE (12:07)
[2017-03-05] MEDS ORDERED: Flumazenil* 0.1 MG/ML 5 ML MDV ONE (12:07)
[2017-03-05] MEDS ORDERED: Naloxone* 0.4 MG/ML 1 ML VIAL ONE (12:07)
[2017-03-05] MEDS ORDERED: traZODone TAB* 50 MG TAB PO PRN (13:47)
[2017-03-05] MEDS ORDERED: Ondansetron INJ* 2 MG/ML VIAL IV PRN (13:48)
--- NOTE | 2017-03-05 14:31 | CONS ---
CC: Dr. Spears; Dr. Hailey Tinoco CARDIOLOGY CONSULTATION: DATE OF CONSULT: 03/05/17 REASON FOR CONSULTATION: Atrial fibrillation. HISTORY OF PRESENT ILLNESS: Mr. Patterson is an 86-year-old gentleman who I follow for paroxysmal atrial fibrillation, I had just seen him in the office on February 28 and he was in sinus rhythm, frail, but doing pretty well. Because of low blood pressure, the decision was made to stop his Cardizem and continue him on sotalol. He stopped the Cardizem Friday. The patient presented to the emergency department early this morning/late last night because of dizziness that started yesterday evening. He had trouble standing up at the kitchen table and was weak and short of breath. EKG and monitor strips in the emergency department were consistent with atrial flutter with regular block and tachycardic response alternating with atrial fibrillation. He was hypotensive. At the time I saw him, the patient was awake and alert and his chief complaint then was epigastric pain. He showed a large area of thorax and upper epigastrium and is vague about it. He could not recall the weakness that he presented with in details. He denied orthopnea or PND. 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 OUTPATIENT MEDICATIONS: Included: 1. Sotalol 120 mg a day, recently discontinued Cardia of 120 mg a day. 2. Eliquis 5 mg b.i.d. 3. Imipramine 50 mg b.i.d. 4. Magnesium oxide 800 mg three times a day. 5. Omeprazole 20 mg a day. 6. Simvastatin 40 mg a day. 7. Trazodone 25 mg p.r.n. 8. Colchicine 0.6 mg p.r.n. gout. 9. Ondansetron 4 mg q. 8h. p.r.n. nausea. 10. MiraLax 17 g daily. 11. Potassium chloride 20 mEq a day. 12. Sodium chloride orally. 13. Carafate 1 g t.i.d. ALLERGIES: The patient is allergic to CODEINE. FAMILY HISTORY: Positive for coronary artery disease and hypertension. SOCIAL HISTORY: The patient lives with his and they have round the clock aides to care for them. 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 Former cigarette smoker. He does not drink alcohol. REVIEW OF SYSTEMS: Appetite remains suboptimal. No recent fevers, chills, sweats. He said he was doing well until last night. He denied hematuria or dysuria. He was vague and review of systems was suboptimal. PHYSICAL EXAM: The patient is frail-appearing cachectic gentleman. He is 5 feet 8, weighs 142 pounds with a BMI of 21. In the emergency department, blood pressure 89/60, pulse was 120 and regularly irregular, respiratory rate was 20, oxygen saturation 89% on 4 L. Skin: Age appropriate changes, mildly violaceous lips and there is an abrasion on the lower lip. HEENT: Pupils are equal and round. Mucous membranes are dry. Neck without appreciable increased JVP using accessory muscles. No thyromegaly. Breath sounds very diminished in the bases bilaterally. I did not appreciate dullness to percussion. Coronary: S1, S2, irregularly irregular and tachycardic without appreciable murmurs. No chest wall tenderness. No epigastric discomfort. Normal bowel sounds. Scaphoid abdomen. Lower extremities are free of edema and warmth. DIAGNOSTIC STUDIES/LAB DATA: White count 7, hemoglobin 11.3, hematocrit 34, platelets 229. INR 1.72. Venous gas; pH 7.30, PCO2 of 47, PO2 13, HCO3 20.6, venous oxygen saturation 17.3/L. Sodium 131, potassium 4.5, chloride 101, bicarb 22, glucose 154, ALT of 12. Troponin is 0.05. Cortisol 42.6. Troponin no. 2 0.05. A 12-lead ECG initially showed atrial flutter with 2:1 block. Repeat EKG at this morning confirmed atrial fibrillation versus probable atrial flutter with variable block at 127 beats a minute. Poor R-wave progression. Nonspecific ST changes. Echocardiogram showed a small hyperdynamic left ventricle that appears underfilled. The right ventricle appeared hypertrophied and hypokinetic and there was a moderate circumferential pericardial effusion, but no evidence of tamponade physiology. He had normal PA pressures and good valvular function. A CT angiogram showed no pulmonary emboli, increase in pericardial effusion compared with CT scan of February 21, 2017, and small right-sided and moderate left -sided pleural effusions. Diffuse emphysematous changes were noted in the lungs with atelectasis in the area of the left-sided effusions. IMPRESSION: In summary, Mr. Patterson is an 86-year-old gentleman with esophageal cancer, pleural and pericardial effusions who was admitted earlier this year plagued by atrial fibrillation with rapid ventricular rates. Cardioversion and sotalol helped him for a while. It is uncertain if stopping the Cardizem contributed to the recurrent atrial fib/flutter versus his ongoing effusion. He does not tolerate Afib/flutter due to hypotension and he is generally debilitated. I proposed electrical cardioversion as he has been anticoagulated for sometime and which will help with blood pressure and hopefully with filling an effusion. This should stabilize him again short term, but he is at risk for recurrent atrial fibrillation which he does not tolerate due to high rates and low blood pressure. He appears too ill for a pacer and AV jinny ablation and his blood pressure is too low for aggressive rate control. After discussions with Dr. Tinoco, we discussed the possibility of tapping his pleural and pericardial effusions, which I think would be a good idea if these are related to metastatic disease that would change our management. Both effusions put this patient at increased risk for recurrent atrial fibrillation and if they can be decreased or managed it would be of benefit to the patient. His terminal supervisor prognosis needs to be considered in his cardiac plan. In the interim, I agree that he is underfilled and I agree with the IV hydration ongoing. Long-term nutritional status and optimization of hydration, electrolytes are going to be important to his cardiovascular health and determining the etiology of his pleural and pericardial effusions and stabilizing or decreasing them are going to be important in terms of controlling his dysrhythmia as well. [id number]/[facility] #: [id number] [facility]
[2017-03-05] MEDS: Sotalol TAB* 80 MG PO SCH ×2 (14:42→21:07)
--- NOTE | 2017-03-05 15:20 | CARD ---
CC: Dr. Tinoco, Hospitalist Service; Primary Care Physician ELECTRICAL CARDIOVERSION: DATE OF PROCEDURE: 03/05/17 INDICATION: Atrial fibrillation with rapid ventricular rate and hypotension. The indications, risks, and benefits of the procedure were discussed with the patient. He was donell ble to proceeding. The patient's blood pressure was in the 80s and 90s systolically but he was wide awake, alert and normal mentation. The decision was made to give him 2 mg of Versed for mild consc ious sedation. Following this, using AP patches, 120 joules of energy was delivered across the chest wall with successful cardioversion to normal sinus rhythm. His blood pressure stayed stable with t he Versed and improved post cardioversion, currently 102/41. A 12-lead ECG is pending. CONCLUSION: Successful cardioversion with atrial fibrillation with a rapid ventricular rate to norm al sinus rhythm. [id number]/[facility] #: [id number]
[2017-03-05] MEDS ORDERED: Sotalol TAB* 80 MG PO SCH (21:00)
[2017-03-06] MEDS: Hydrocortisone INJ* 100 MG VIAL IV SCH (03:09)
[2017-03-06 06:36] LABS: Hematocrit 33 % (42-52); Hemoglobin 10.6 g/dl (14.0-18.0); Mean Corpuscular HGB Conc 33 g/dl (31-36); Mean Corpuscular Hemoglobin 30 pg (27-31); Mean Corpuscular Volume 93 fL (80-94); Mean Platelet Volume 8 um3 (7.4-10.4); Red Blood Count 3.51 10^6/ul (4.0-5.4); Red Cell Distribution Width 18 % (10.5-15); White Blood Count 7.8 10^3/ul (3.5-10.8)
[2017-03-06 06:57] LABS: BUN/Creatinine Ratio 24.5 (8-20); Calcium 7.9 mg/dL (8.6-10.3); EGFR African American 93.5 (>60); EGFR Non-African American 72.7 (>60); Magnesium 1.7 mg/dL (1.9-2.7); Phosphorus 3.8 mg/dL (2.5-5.0); Potassium 4.4 mmol/L (3.5-5.0)
[2017-03-06] MEDS: NS 0.9% 1000 ML* 1,000 ML IV SCH (08:18)
[2017-03-06] MEDS: Sotalol TAB* 80 MG PO SCH ×2 (09:03→21:39)
[2017-03-06] MEDS ORDERED: Magnesium Sulfate 2 GM IV* 2 GM/50 ML BAG IVPB ONE (09:32)
[2017-03-06] MEDS ORDERED: NS 0.9% 1000 ML* 1,000 ML IV SCH (09:52)
--- NOTE | 2017-03-06 10:20 | PN ---
Progress Note - Progress Note Note: CRITICAL CARE MEDICINE DATE: 03/06/17 TIME: 850 SUBJECTIVE: Patient seen and examined. confused overnight. mainly nsr PHYSICAL EXAM: Vital Signs: Reviewed. Neurologic: awake. communicating. HEENT: anicteric, perrl, mmm Cardiovascular: reg Respiratory: equal Abdomen: thin, soft, nt Extremities: warm Access: piv, R chest port LABS: Reviewed. IMAGING: Reviewed. MEDICATIONS: Reviewed. 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 f/u for dementia and confusion Cardiovascular: perfusing. vol status met. better with rhythm control. maintained on sotalol. cards f/u and plans for effusions Respiratory: off O2. stable. Gastrointestinal: po dysphasia. family asking for swallow eval and we can provide. Renal/Metabolic: Cr improved. gentle ivf today and then off in favor of po Infectious Disease: no infectious signs. Hematology: onc f/u. eliquis held currently. Endocrine: give dose stress dose steroids and can dc now. Musculoskeletal: oob. pt if needed Psych/Social: tca held and would consider alternative agents given his cardiac ailments. f/u Supportive and preventative care as ordered. SUP: po VTE prophylaxis: eliquis wearing off; oob Disposition: tele Code Status: Full Critical Care Time: 25min D/w OncJaswinder Ratliff DO
[2017-03-06] MEDS: Sucralfate TAB* 1 GM PO PRN ×2 (14:09→18:18)
--- NOTE | 2017-03-06 14:54 | PN ---
Subjective Date of Service: 03/06/17 Interval History: f/u cardioversion patient in sinus rhythm ovenright, ekg this AM NSR 66 bpm, qts 440 at bedside, concern over not enough nutrition no cp or dyspnea Medications Active Medications: Acetaminophen (Tylenol Tab*) 650 mg PO Q6H PRN PRN Reason: PAIN Atorvastatin Calcium (Lipitor*) 40 mg PO 1700 [facility] Sodium Chloride (Ns 0.9% 1000 Ml*) 1,000 mls @ 50 mls/hr IV PER RATE [facility] Stop: 03/07/17 05:51 Last Admin: 03/06/17 10:26 Dose: 50 mls/hr Omeprazole (Prilosec Cap*) 20 mg PO DAILY@0600 [facility] Ondansetron HCl (Zofran Inj*) 4 mg IV Q6H PRN PRN Reason: NAUSEA Sotalol HCl (Betapace Tab*) 160 mg PO BID [facility] Last Admin: 03/06/17 09:03 Dose: 160 mg Sucralfate (Carafate*) 1 gm PO TID PRN PRN Reason: DYSPEPSIA Last Admin: 03/06/17 14:09 Dose: 1 gm Trazodone HCl (Desyrel Tab*) 25 mg PO BEDTIME PRN PRN Reason: INSOMNIA Objective Vital Signs: Temp Pulse Resp BP Pulse Ox 97.6 F 79 16 112/64 91 03/06/17 12:02 03/06/17 12:02 03/06/17 12:02 03/06/17 12:02 03/06/17 12:02 Appearance: frail, elderly, malnourished, chronically ill appearing Neck: Trachea Midline Respiratory: Symmetrical Chest Expansion and Respiratory Effort, - - decreased breath sounds bases Cardiovascular: RRR, - - muffled heart sund Extremities: No Edema Neurological: - - awake and alert Laboratory Results: 03/06/17 06:00 03/06/17 06:00 INR (Anticoag Therapy) 1.72 (0.89-1.11) H 03/05/17 03:30 Total Bilirubin 0.40 mg/dL (0.2-1.0) 03/05/17 03:30 AST 20 U/L (13-39) 03/05/17 03:30 ALT 12 U/L (7-52) 03/05/17 03:30 Alkaline Phosphatase 70 U/L (34-104) 03/05/17 03:30 Total Protein 6.1 g/dL (6.4-8.9) L 03/05/17 03:30 Albumin 2.5 g/dL (3.2-5.2) L 03/05/17 03:30 Globulin 3.6 g/dL (2-4) 03/05/17 03:30 Albumin/Globulin Ratio 0.7 (1-3) L 03/05/17 03:30 03/05/17 10:55 Troponin I 0.05 H* Assessment/Plan Mr. Patterson is an 86-year-old manw with esophageal cancer undergoing chemotherapy , paroxysmal atrial fibrillation admitted with an atrial arrhythmias s/p cardioversion yesterday, sotalol increased to 160 mg PO BID afterwards, hypertension, dyslipidemia, dementia also with pleural and moderate pericardial effusions suspected malignant. LVEF hyperdynamic with small cavity. - Continue sotalol, continue telemetry, check another EKG tomorrow (ordered) - Keep K > 4 and Mg > 2 - If no procedures being planned to address effusions, would restart eliquis post-cardioversion
[2017-03-06] MEDS ORDERED: Atorvastatin* 40 MG TAB PO SCH (17:00)
[2017-03-07] MEDS: Omeprazole CAP* 20 MG PO SCH (05:35)
[2017-03-07 06:19] LABS: BUN/Creatinine Ratio 34.1 (8-20); Calcium 8.1 mg/dL (8.6-10.3); EGFR African American 105.8 (>60); EGFR Non-African American 82.3 (>60)
[2017-03-07 07:28] LABS: Magnesium 1.9 mg/dL (1.9-2.7)
[2017-03-07] MEDS: Sotalol TAB* 80 MG PO SCH (07:59)
--- NOTE | 2017-03-07 10:13 | PN ---
Progress Note - Progress Note SOAP: Subjective: []Not clearly feeling better. Has not been moving around, essentially in bed. Breathing has been stable. No clearly better after going into SR. Eating mostly. No fevers. Acetaminophen (Tylenol Tab*) 650 mg PO Q6H PRN PRN Reason: PAIN Atorvastatin Calcium (Lipitor*) 40 mg PO 1700 [facility] Last Admin: 03/06/17 18:18 Dose: 40 mg Omeprazole (Prilosec Cap*) 20 mg PO DAILY@0600 [facility] Last Admin: 03/07/17 05:35 Dose: 20 mg Ondansetron HCl (Zofran Inj*) 4 mg IV Q6H PRN PRN Reason: NAUSEA Sotalol HCl (Betapace Tab*) 160 mg PO BID [facility] Last Admin: 03/07/17 07:59 Dose: 160 mg Sucralfate (Carafate*) 1 gm PO TID PRN PRN Reason: DYSPEPSIA Last Admin: 03/06/17 18:18 Dose: 1 gm Trazodone HCl (Desyrel Tab*) 25 mg PO BEDTIME PRN PRN Reason: INSOMNIA Objective: [] Vital Signs Temp Pulse Resp BP Pulse Ox 97.6 F 88 18 129/71 99 03/07/17 03:32 03/07/17 07:37 03/07/17 08:00 03/07/17 07:37 03/07/17 08:00 HEENT - Thin, no thrush, pale CTA, decreased sound Regular and in 60s +BS, NT/ND Ext w/o edema CT with left sided effusion and pericardial effusion. Assessment: []86 year old, frail, status post chemotherapy and XRT for esophageal cancer. Free of disease at this time but high risk of progression. Has been fatigued since radiation, moving around house but not much more. Presented with progressive weakness over several days. Found to have Afib w/ RVR, pericardial and pleural effusions. Controverted but continues to be weak. DDx: Pleural and pericardial effusion could both be secondary to XRT, 30 Gy to region, recurrent cancer is possible but less likely. Plan: []1. Case discussed with Dr. Lopez and will look into if there is hydrodynamic benefit to draining effusion. I suspect we will monitor. 2. I do not see clear benefit to draining pleural effusion today, can drain Friday if not improved. 3. Work on getting him home. PT evaluation today and nutrition to make sure he is eating enough. 4. a-fib, stable on Sotalol, continue telemetry. 5. Discussed with and aide, he has support at home when ready for discharge. face time 50 min, chart and patient
[2017-03-07] MEDS: Atorvastatin* 10 MG TAB PO SCH (17:23)
--- NOTE | 2017-03-07 17:43 | ECHO ---
Patient: JAIMEE STUART [facility] Rec#: [id number] : 1930 Date: 03/07/2017 Age: 86y Height: 172.7 cm / 68.0 in Weight: 64.4 kg / 141.9 lbs Sex: M BSA: 1.8 Room#: 437 Admit Date#: 03/05/2017 Type: Inpatient Referring: Lamberto Lopez MD Reading: Lamberto Lopez MD Pile Driver Operator Barge Mounted: Glendy You RN RDCS CC: Alejandro Spears MD Transthoracic Echocardiogram Indication: Pericardial effusion BP: 100/52 HR: 73 Rhythm: NSR Findings History: Esophageal cancer, chemotherapy, A. fib, HTN, HLD, pericardial effusion, pleural effusion Technical Comments: The study quality is good. Completed at 1730. Left Ventricle: There is normal left ventricular systolic function. The estimated ejection fraction is 55-60%. Right Ventricle: The right ventricular global systolic function is mildly reduced. Pericardium: A pericardial effusion is visualized.The pericardial echo-free rim measures 0.7cm anteriorly and 0.6 cm posteriorly in the MOO view, 0.6 cm anteriorly and 1.5 cm posteriorly in the PSA view, 0.8 cm at the apex and 0.9 cm laterally in the A4C view, 0.4 cm adjacent to the RA in the A4C view, and 0.8 cm at the apex in the A2C and A3C views. The respiratory variation is 13% by mitral E peak velocity, 10% by LVOT velocity and 16% by tricuspid E peak velocity. There are no signs of significant hemodynamic compromise.by 2d or mitral inflow. There is a circumferential pericardial effusion.Mild to moderate in size. Venous: There is a greater than 50% respiratory change in the inferior vena cava dimension. The flow pattern of the inferior vena cava appears normal. Conclusions Focused study to assess pericardial effusion. There is normal left ventricular systolic function. The right ventricular global systolic function is mildly reduced. A pericardial effusion is visualized. There are no signs of significant hemodynamic compromise by 2d or mitral inflow. There is a circumferential pericardial effusion. Mild to moderate in size. c/t 5.10, NSR has replaced afib. The effusion seems slightly smaller. Measurements Name Value Normal Range IVC diameter 1.9 cm -
[2017-03-08] MEDS: Omeprazole CAP* 20 MG PO SCH (05:25)
[2017-03-08 07:17] LABS: Hematocrit 34 % (42-52); Hemoglobin 11.3 g/dl (14.0-18.0); Mean Corpuscular HGB Conc 34 g/dl (31-36); Mean Corpuscular Hemoglobin 31 pg (27-31); Mean Corpuscular Volume 91 fL (80-94); Mean Platelet Volume 8 um3 (7.4-10.4); Red Cell Distribution Width 18 % (10.5-15)
[2017-03-08 07:47] LABS: Albumin 2.2 g/dL (3.2-5.2); BUN/Creatinine Ratio 29.3 (8-20); Calcium 7.9 mg/dL (8.6-10.3); EGFR African American 127.3 (>60); Globulin 3.5 g/dL (2-4); Magnesium 1.6 mg/dL (1.9-2.7); Potassium 3.6 mmol/L (3.5-5.0); Total Bilirubin 0.4 mg/dL (0.2-1.0); Total Protein 5.7 g/dL (6.4-8.9)
[2017-03-08] MEDS: Sotalol TAB* 80 MG PO SCH ×2 (08:52→19:57)
[2017-03-08 09:01] LABS: Ferritin 722.6 ng/mL (24-336)
[2017-03-08] MEDS: Magnesium Oxide TAB* 400 MG PO SCH ×2 (12:03→19:56)
[2017-03-08] MEDS: Potassium Chlor TAB* 20 MEQ TAB.ER PO SCH ×2 (12:03→19:56)
[2017-03-08] MEDS: Atorvastatin* 10 MG TAB PO SCH (17:12)
[2017-03-09] MEDS: Omeprazole CAP* 20 MG PO SCH (05:30)
[2017-03-09 08:16] LABS: BUN/Creatinine Ratio 27.4 (8-20); Calcium 7.8 mg/dL (8.6-10.3); EGFR African American 158.6 (>60); EGFR Non-African American 123.3 (>60); Magnesium 1.5 mg/dL (1.9-2.7); Potassium 3.6 mmol/L (3.5-5.0)
[2017-03-09] MEDS ORDERED: Magnesium Sulf 4 GM/100 ML IV* 4,000 MG/100 ML BAG IVPB ONE (09:27)
[2017-03-09] MEDS: Sotalol TAB* 80 MG PO SCH (09:33)
[2017-03-09] MEDS: Potassium Chlor TAB* 20 MEQ TAB.ER PO SCH ×2 (09:33→20:02)
[2017-03-09] MEDS: Magnesium Oxide TAB* 400 MG PO SCH ×2 (09:33→20:02)
[2017-03-09] MEDS: KCL 20 MEQ/100 ML IVPREMIX* 20 MEQ/100 ML BAG IV SCH ×2 (10:11→16:48)
[2017-03-09] MEDS ORDERED: KCL 20 MEQ/100 ML IVPREMIX* 20 MEQ/100 ML BAG ONE (16:46)
[2017-03-09] MEDS: Atorvastatin* 10 MG TAB PO SCH (17:48)
[2017-03-10] MEDS: Omeprazole CAP* 20 MG PO SCH (05:35)
[2017-03-10 06:18] LABS: BUN/Creatinine Ratio 27.9 (8-20); Calcium 7.3 mg/dL (8.6-10.3); EGFR African American 161.6 (>60); EGFR Non-African American 125.6 (>60); Magnesium 1.8 mg/dL (1.9-2.7); Potassium 4.2 mmol/L (3.5-5.0)
[2017-03-10] MEDS ORDERED: Magnesium Sulfate 2 GM IV* 2 GM/50 ML BAG IVPB ONE (10:07)
--- NOTE | 2017-03-10 10:20 | PN ---
Progress Note - Progress Note SOAP: Subjective: [] No change. He wants to go home. He has been walking with walker. Eating better. No chest pain or no palpitations. Acetaminophen (Tylenol Tab*) 650 mg PO Q6H PRN PRN Reason: PAIN Atorvastatin Calcium (Lipitor*) 10 mg PO 1700 [facility] Last Admin: 03/09/17 17:48 Dose: 10 mg Magnesium Sulfate (Magnesium Sulfate 2 Gm Iv*) 2 gm in 50 mls @ 50 mls/hr IVPB ONCE ONE Stop: 03/10/17 11:06 Magnesium Oxide (Magox 400 Tab*) 800 mg PO BID [facility] Omeprazole (Prilosec Cap*) 20 mg PO DAILY@0600 [facility] Last Admin: 03/10/17 05:35 Dose: 20 mg Ondansetron HCl (Zofran Inj*) 4 mg IV Q6H PRN PRN Reason: NAUSEA Potassium Chloride (Klor Con Er Tab*) 20 meq PO BID [facility] Last Admin: 03/09/17 20:02 Dose: 20 meq Sucralfate (Carafate*) 1 gm PO TID PRN PRN Reason: DYSPEPSIA Last Admin: 03/06/17 18:18 Dose: 1 gm Trazodone HCl (Desyrel Tab*) 25 mg PO BEDTIME PRN PRN Reason: INSOMNIA Objective: [] Vital Signs Temp Pulse Resp BP Pulse Ox 99.7 F 76 16 125/69 92 03/10/17 07:48 03/10/17 07:48 03/10/17 07:48 03/10/17 07:48 03/10/17 07:48 HEENT - Thin, no thrush, pale CTA, decreased sound Regular and in 60s +BS, NT/ND Ext w/o edema Assessment: []86 year old, frail, status post chemotherapy and XRT for esophageal cancer. Free of disease at this time but high risk of progression. Has been fatigued since radiation, moving around house but not much more. Presented with progressive weakness over several days. Found to have Afib w/ RVR, pericardial and pleural effusions. Controverted but continues to be weak. Had been on Sotalol but c/b VTAC now off rate control agents, Amioderone to start on 5 am Plan: []1. Case discussed with Dr. Grace. Will start Amioderone 400 mg bid x 7 days on Fri then 200 mg daily. 2. No drainage of pleural effusion. 3. D/c wed once on Amioderone
[2017-03-10] MEDS: Magnesium Oxide TAB* 400 MG PO SCH ×2 (10:52→20:41)
[2017-03-10] MEDS: Potassium Chlor TAB* 20 MEQ TAB.ER PO SCH ×2 (10:52→20:41)
[2017-03-10] MEDS ORDERED: Metoprolol Tartrate IV* 1 MG/ML 5 ML VIAL IV ONE (16:49)
[2017-03-10] MEDS: Atorvastatin* 10 MG TAB PO SCH (17:01)
[2017-03-10] MEDS: Metoprolol Tartrate TAB* 25 MG PO SCH ×2 (17:01→22:51)
[2017-03-11] MEDS: Metoprolol Tartrate TAB* 25 MG PO SCH ×4 (06:14→23:23)
[2017-03-11] MEDS: Omeprazole CAP* 20 MG PO SCH (06:14)
[2017-03-11] MEDS: Magnesium Oxide TAB* 400 MG PO SCH ×2 (07:54→20:47)
[2017-03-11] MEDS: Potassium Chlor TAB* 20 MEQ TAB.ER PO SCH ×2 (07:55→20:48)
[2017-03-11 10:11] LABS: Albumin 2.3 g/dL (3.2-5.2); BUN/Creatinine Ratio 25.4 (8-20); Calcium 7.8 mg/dL (8.6-10.3); EGFR Non-African American 112.7 (>60); Globulin 3.6 g/dL (2-4); Magnesium 1.7 mg/dL (1.9-2.7); Total Bilirubin 0.5 mg/dL (0.2-1.0); Total Protein 5.9 g/dL (6.4-8.9)
[2017-03-11] MEDS ORDERED: Metoprolol Tartrate IV* 1 MG/ML 5 ML VIAL IV ONE ×3 (12:40→22:00)
[2017-03-11] MEDS: Atorvastatin* 10 MG TAB PO SCH (16:20)
[2017-03-11] MEDS: Apixaban* 5 MG TAB PO SCH (20:47)
[2017-03-11] MEDS: Amiodarone TAB* 400 MG PO SCH (20:47)
[2017-03-12] MEDS ORDERED: Diltiazem IV* 5 MG/ML 5 ML VIAL (for loading dose/IV Push) (25 MG) IV SLOW PU ONE (00:43)
[2017-03-12] MEDS ORDERED: Diltiazem DRIP* 100 MG/100 ML ADDV.BAG IVPB ONE (00:43)
[2017-03-12] MEDS ORDERED: Morphine INJ* 2 MG/ML 1 ML SYRINGE IV ONE (01:00)
[2017-03-12] MEDS ORDERED: Naloxone* 0.4 MG/ML 1 ML VIAL IV PUSH ONE (02:17)
[2017-03-12] MEDS: Omeprazole CAP* 20 MG PO SCH (05:18)
[2017-03-12] MEDS: Metoprolol Tartrate TAB* 25 MG PO SCH ×4 (05:19→23:35)
--- NOTE | 2017-03-12 07:37 | CONSULT ---
Consult Consult: PCP: YELENA Cazares Oncology: Luis Damico MD Date/Time of Evaluation: 03/12/2017 0030 Reason for Consult: chest pain HPI: Mr Patterson is an 86YO male HX esophageal CA on treatment without active disease admitted for atrial arrhythmia s/p cardioversion 03/05. He has been off anticoagulation for consideration of a pericardial window, but this has been decided against and so his apixaban was restarted yesterday. Tonight while in bed he developed sudden onset of severe non-radiating sharp R lower parasternal pain associated with SOB, but no N/V, palpitations, sweats, or light- headedness. ECG shows AFIB RVR rates 130-150s, but no ischemia. His pain and SOB improved with improved rate control. CXR shows enlarging L pleural effusion likely exacerbating his AFIB. He was given 2mg IV morphine which unexpectedly caused episodes of apnea and hypoxia which resolved with 0.4 of naloxone. Diltiazem 10mg IV push was administered with good heart rate response. Troponins will be trended. Case reviewed with Luis Damico MD oncology. Potential for PE was discussed, but as he is back on apixaban for AFIB, a positive CTA chest for PE would not change his management and so we agreed to forego. PMedHx adenoCA esophagus on [place] pAFIB normocytic anemia HTN HLD GERD Ambulatory Orders Imipramine HCl [Tofranil] 50 mg PO BID 12/16/16 Omeprazole [Prilosec] 20 mg PO BID 12/16/16 Simvastatin [Zocor 40 MG (NF)] 40 mg PO BEDTIME 12/16/16 Apixaban* [Eliquis*] 5 mg PO BID #60 tab 12/19/16 Diltiazem CD CAP* [Cardizem CD CAP*] 120 mg PO DAILY #30 cap.cd 12/19/16 Ondansetron HCl [Zofran 4 MG TAB] 4 mg PO Q4HR PRN 02/04/17 traZODone TAB* [Desyrel TAB*] 25 mg PO BEDTIME 02/04/17 Magnesium Oxide TAB* [MagOx 400 TAB*] 800 mg PO TID #180 tab 02/13/17 Polyethylene Glycol 3350* [Miralax*] 17 gm PO DAILY PRN #30 packet 02/13/17 Potassium Chlor TAB* [Potassium Chlor TAB 20 MEQ*] 2 tab PO DAILY #0 02/13/17 Sodium Chloride TAB* 1 gm PO BID #60 tab 02/13/17 Colchicine* [Colcrys*] 0.6 mg PO QAM 02/20/17 Sucralfate SUSP (NF) [Carafate SUSP (NF)] 10 ml PO TID 02/20/17 Sotalol TAB* [Betapace 80 MG TAB*] 120 mg PO BID 30 Days 02/24/17 Allergies Morphine Adverse Reaction (Intermediate, Verified 03/12/17 02:17) Apnea Codeine Adverse Reaction (Unknown, Verified 03/05/17 06:42) GI Upset Warfarin Adverse Reaction (Unknown, Verified 03/05/17 06:42) Nausea And Vomiting PSurgHx R RCT repair B TKA SocHx: former smoker, rare alcohol, denies recreational drugs; lives with ; full code status FamHx: positive for HTN ROS: as above, otherwise reviewed and all were negative Constitutional: NAD, normally developed, thin elderly white male vitals: Vital Signs Temp 36.8 C 03/11/17 23:26 Pulse 173 03/11/17 23:26 Resp 18 03/12/17 06:29 BP 113/78 03/12/17 05:15 Pulse Ox 97 03/11/17 23:26 Intake & Output 03/11/17 03/11/17 03/12/17 11:59 23:59 11:59 Intake Total 900 500 200 Output Total 300 100 Balance 900 200 100 Intake: Oral 900 500 200 Output: Urine 300 100 Other: Estimated Void Small Small # Bowel Movements 1 1 Estimated Stool Amount Medium Large # Voids 4 6 1 HEENM: atraumatic; sclera/conjunctiva: non-icteric/clear; hearing: clinically intact; oropharynx: clear, mucosa moist Neck: soft tissue: non-tender; thyroid: normal Pulmonary: clear to auscultation R, L with scant crackle in base, good aeration , no accessory muscle use CV: TIR/IR, normal S1S2, no carotid bruit, no jugular venous distention, 2+ B DP /PT, no edema Abdominal: soft, non-distended, non-tender, no rebound/guarding/rigidity, normoactive bowel sounds, no hepatosplenomegaly or masses, no costovertebral angle tenderness Musculoskeletal: general: grossly intact; gait: not tested Integumental: normal appearance and texture of exposed skin Psychiatric orientation: AA&O to PPS affect: anxious appearing mood: cooperative eye contact: fair content: reliable responses: timely insight: fair to good Testing: Lab Results 03/05/17 03/05/17 03/05/17 Range/Units 03:30 03:30 03:30 WBC 7.7 (3.5-10.8) 10^3/ul RBC 3.71 L (4.0-5.4) 10^6/ul Hgb 11.3 L (14.0-18.0) g/dl Hct 34 L (42-52) % MCV 92 (80-94) fL MCH 31 (27-31) pg MCHC 33 (31-36) g/dl RDW 18 H (10.5-15) % Plt Count 229 (150-450) 10^3/ul MPV 8 (7.4-10.4) um3 Neut % (Auto) 83.6 H (38-83) % Lymph % (Auto) 7.8 L (25-47) % [place] % (Auto) 8.0 (1-9) % Eos % (Auto) 0.1 (0-6) % Baso % (Auto) 0.5 (0-2) % Absolute Neuts (auto) 6.5 (1.5-7.7) 10^3/ul Absolute Lymphs (auto) 0.6 L (1.0-4.8) 10^3/ul Absolute Monos (auto) 0.6 (0-0.8) 10^3/ul Absolute Eos (auto) 0 (0-0.6) 10^3/ul Absolute Basos (auto) 0 (0-0.2) 10^3/ul Absolute Nucleated RBC 0.01 10^3/ul Nucleated RBC % 0.1 INR (Anticoag Therapy) 1.72 H (0.89-1.11) D-Dimer, Quantitative > 1050 H (Less Than 230) ng/mL VBG pH (7.33-7.43) VBG pCO2 (41-51) mmHg VBG pO2 (35-45) mmHg VBG HCO3 (24-28) mmol/L VBG O2 Saturation (70-80) % VBG Base Excess (0-4) Sodium 131 L (133-145) mmol/L Potassium 4.5 (3.5-5.0) mmol/L Chloride 101 (101-111) mmol/L Carbon Dioxide 22 (22-32) mmol/L Anion Gap 8 (2-11) mmol/L BUN 22 (6-24) mg/dL Creatinine 1.15 (0.67-1.17) mg/dL Est GFR ( Amer) 77.7 (>60) Est GFR (Non-Af Amer) 60.4 (>60) BUN/Creatinine Ratio 19.1 (8-20) Glucose 154 H (70-100) mg/dL Lactic Acid (0.5-2.0) mmol/L Calcium 8.6 (8.6-10.3) mg/dL Phosphorus (2.5-5.0) mg/dL Magnesium 1.9 (1.9-2.7) mg/dL Iron (50-212) ug/dL Ferritin (24-336) ng/mL Total Bilirubin 0.40 (0.2-1.0) mg/dL AST 20 (13-39) U/L ALT 12 (7-52) U/L Alkaline Phosphatase 70 (34-104) U/L Troponin I 0.05 H* (<0.04) ng/mL Total Protein 6.1 L (6.4-8.9) g/dL Albumin 2.5 L (3.2-5.2) g/dL Globulin 3.6 (2-4) g/dL Albumin/Globulin Ratio 0.7 L (1-3) Cortisol 42.62 mcg/dL 03/05/17 03/05/17 03/05/17 Range/Units 03:30 10:55 10:55 WBC (3.5-10.8) 10^3/ul RBC (4.0-5.4) 10^6/ul Hgb (14.0-18.0) g/dl Hct (42-52) % MCV (80-94) fL MCH (27-31) pg MCHC (31-36) g/dl RDW (10.5-15) % Plt Count (150-450) 10^3/ul MPV (7.4-10.4) um3 Neut % (Auto) (38-83) % Lymph % (Auto) (25-47) % [place] % (Auto) (1-9) % Eos % (Auto) (0-6) % Baso % (Auto) (0-2) % Absolute Neuts (auto) (1.5-7.7) 10^3/ul Absolute Lymphs (auto) (1.0-4.8) 10^3/ul Absolute Monos (auto) (0-0.8) 10^3/ul Absolute Eos (auto) (0-0.6) 10^3/ul Absolute Basos (auto) (0-0.2) 10^3/ul Absolute Nucleated RBC 10^3/ul Nucleated RBC % INR (Anticoag Therapy) (0.89-1.11) D-Dimer, Quantitative (Less Than 230) ng/mL VBG pH (7.33-7.43) VBG pCO2 (41-51) mmHg VBG pO2 (35-45) mmHg VBG HCO3 (24-28) mmol/L VBG O2 Saturation (70-80) % VBG Base Excess (0-4) Sodium 134 (133-145) mmol/L Potassium 4.4 (3.5-5.0) mmol/L Chloride 107 (101-111) mmol/L Carbon Dioxide 22 (22-32) mmol/L Anion Gap 5 (2-11) mmol/L BUN 22 (6-24) mg/dL Creatinine 1.06 (0.67-1.17) mg/dL Est GFR ( Amer) 85.4 (>60) Est GFR (Non-Af Amer) 66.4 (>60) BUN/Creatinine Ratio 20.8 H (8-20) Glucose 123 H (70-100) mg/dL Lactic Acid 3.4 H* 1.4 (0.5-2.0) mmol/L Calcium 7.5 L (8.6-10.3) mg/dL Phosphorus (2.5-5.0) mg/dL Magnesium (1.9-2.7) mg/dL Iron (50-212) ug/dL Ferritin (24-336) ng/mL Total Bilirubin (0.2-1.0) mg/dL AST (13-39) U/L ALT (7-52) U/L Alkaline Phosphatase (34-104) U/L Troponin I 0.05 H* (<0.04) ng/mL Total Protein (6.4-8.9) g/dL Albumin (3.2-5.2) g/dL Globulin (2-4) g/dL Albumin/Globulin Ratio (1-3) Cortisol mcg/dL 03/05/17 03/06/17 03/06/17 Range/Units 10:55 06:00 06:00 WBC 7.8 (3.5-10.8) 10^3/ul RBC 3.51 L (4.0-5.4) 10^6/ul Hgb 10.6 L (14.0-18.0) g/dl Hct 33 L (42-52) % MCV 93 (80-94) fL MCH 30 (27-31) pg MCHC 33 (31-36) g/dl RDW 18 H (10.5-15) % Plt Count 235 (150-450) 10^3/ul MPV 8 (7.4-10.4) um3 Neut % (Auto) (38-83) % Lymph % (Auto) (25-47) % [place] % (Auto) (1-9) % Eos % (Auto) (0-6) % Baso % (Auto) (0-2) % Absolute Neuts (auto) (1.5-7.7) 10^3/ul Absolute Lymphs (auto) (1.0-4.8) 10^3/ul Absolute Monos (auto) (0-0.8) 10^3/ul Absolute Eos (auto) (0-0.6) 10^3/ul Absolute Basos (auto) (0-0.2) 10^3/ul Absolute Nucleated RBC 10^3/ul Nucleated RBC % INR (Anticoag Therapy) (0.89-1.11) D-Dimer, Quantitative (Less Than 230) ng/mL VBG pH 7.30 L (7.33-7.43) VBG pCO2 47 (41-51) mmHg VBG pO2 15 L (35-45) mmHg VBG HCO3 20.6 L (24-28) mmol/L VBG O2 Saturation 17.3 L (70-80) % VBG Base Excess -3.4 L (0-4) Sodium 135 (133-145) mmol/L Potassium 4.4 (3.5-5.0) mmol/L Chloride 107 (101-111) mmol/L Carbon Dioxide 20 L (22-32) mmol/L Anion Gap 8 (2-11) mmol/L BUN 24 (6-24) mg/dL Creatinine 0.98 (0.67-1.17) mg/dL Est GFR ( Amer) 93.5 (>60) Est GFR (Non-Af Amer) 72.7 (>60) BUN/Creatinine Ratio 24.5 H (8-20) Glucose 100 (70-100) mg/dL Lactic Acid (0.5-2.0) mmol/L Calcium 7.9 L (8.6-10.3) mg/dL Phosphorus 3.8 (2.5-5.0) mg/dL Magnesium 1.7 L (1.9-2.7) mg/dL Iron (50-212) ug/dL Ferritin (24-336) ng/mL Total Bilirubin (0.2-1.0) mg/dL AST (13-39) U/L ALT (7-52) U/L Alkaline Phosphatase (34-104) U/L Troponin I (<0.04) ng/mL Total Protein (6.4-8.9) g/dL Albumin (3.2-5.2) g/dL Globulin (2-4) g/dL Albumin/Globulin Ratio (1-3) Cortisol mcg/dL 03/07/17 03/08/17 03/08/17 Range/Units 05:21 07:02 07:02 WBC 6.0 (3.5-10.8) 10^3/ul RBC 3.70 L (4.0-5.4) 10^6/ul Hgb 11.3 L (14.0-18.0) g/dl Hct 34 L (42-52) % MCV 91 (80-94) fL MCH 31 (27-31) pg MCHC 34 (31-36) g/dl RDW 18 H (10.5-15) % Plt Count 175 (150-450) 10^3/ul MPV 8 (7.4-10.4) um3 Neut % (Auto) 80.5 (38-83) % Lymph % (Auto) 10.8 L (25-47) % [place] % (Auto) 8.2 (1-9) % Eos % (Auto) 0.3 (0-6) % Baso % (Auto) 0.2 (0-2) % Absolute Neuts (auto) 4.8 (1.5-7.7) 10^3/ul Absolute Lymphs (auto) 0.6 L (1.0-4.8) 10^3/ul Absolute Monos (auto) 0.5 (0-0.8) 10^3/ul Absolute Eos (auto) 0 (0-0.6) 10^3/ul Absolute Basos (auto) 0 (0-0.2) 10^3/ul Absolute Nucleated RBC 0.01 10^3/ul Nucleated RBC % 0.1 INR (Anticoag Therapy) (0.89-1.11) D-Dimer, Quantitative (Less Than 230) ng/mL VBG pH (7.33-7.43) VBG pCO2 (41-51) mmHg VBG pO2 (35-45) mmHg VBG HCO3 (24-28) mmol/L VBG O2 Saturation (70-80) % VBG Base Excess (0-4) Sodium 135 135 (133-145) mmol/L Potassium 4.0 3.6 (3.5-5.0) mmol/L Chloride 107 104 (101-111) mmol/L Carbon Dioxide 22 24 (22-32) mmol/L Anion Gap 6 7 (2-11) mmol/L BUN 30 H 22 (6-24) mg/dL Creatinine 0.88 0.75 (0.67-1.17) mg/dL Est GFR ( Amer) 105.8 127.3 (>60) Est GFR (Non-Af Amer) 82.3 99.0 (>60) BUN/Creatinine Ratio 34.1 H 29.3 H (8-20) Glucose 104 H 93 (70-100) mg/dL Lactic Acid (0.5-2.0) mmol/L Calcium 8.1 L 7.9 L (8.6-10.3) mg/dL Phosphorus (2.5-5.0) mg/dL Magnesium 1.9 1.6 L (1.9-2.7) mg/dL Iron 31 L (50-212) ug/dL Ferritin 722.6 H (24-336) ng/mL Total Bilirubin 0.40 (0.2-1.0) mg/dL AST 21 (13-39) U/L ALT 14 (7-52) U/L Alkaline Phosphatase 65 (34-104) U/L Troponin I (<0.04) ng/mL Total Protein 5.7 L (6.4-8.9) g/dL Albumin 2.2 L (3.2-5.2) g/dL Globulin 3.5 (2-4) g/dL Albumin/Globulin Ratio 0.6 L (1-3) Cortisol mcg/dL 03/09/17 03/10/17 03/11/17 Range/Units 07:55 05:33 09:40 WBC (3.5-10.8) 10^3/ul RBC (4.0-5.4) 10^6/ul Hgb (14.0-18.0) g/dl Hct (42-52) % MCV (80-94) fL MCH (27-31) pg MCHC (31-36) g/dl RDW (10.5-15) % Plt Count (150-450) 10^3/ul MPV (7.4-10.4) um3 Neut % (Auto) (38-83) % Lymph % (Auto) (25-47) % [place] % (Auto) (1-9) % Eos % (Auto) (0-6) % Baso % (Auto) (0-2) % Absolute Neuts (auto) (1.5-7.7) 10^3/ul Absolute Lymphs (auto) (1.0-4.8) 10^3/ul Absolute Monos (auto) (0-0.8) 10^3/ul Absolute Eos (auto) (0-0.6) 10^3/ul Absolute Basos (auto) (0-0.2) 10^3/ul Absolute Nucleated RBC 10^3/ul Nucleated RBC % INR (Anticoag Therapy) (0.89-1.11) D-Dimer, Quantitative (Less Than 230) ng/mL VBG pH (7.33-7.43) VBG pCO2 (41-51) mmHg VBG pO2 (35-45) mmHg VBG HCO3 (24-28) mmol/L VBG O2 Saturation (70-80) % VBG Base Excess (0-4) Sodium 134 132 L 130 L (133-145) mmol/L Potassium 3.6 4.2 4.0 (3.5-5.0) mmol/L Chloride 101 100 L 99 L (101-111) mmol/L Carbon Dioxide 28 27 25 (22-32) mmol/L Anion Gap 5 5 6 (2-11) mmol/L BUN 17 17 17 (6-24) mg/dL Creatinine 0.62 L 0.61 L 0.67 (0.67-1.17) mg/dL Est GFR ( Amer) 158.6 161.6 145.0 (>60) Est GFR (Non-Af Amer) 123.3 125.6 112.7 (>60) BUN/Creatinine Ratio 27.4 H 27.9 H 25.4 H (8-20) Glucose 89 99 148 H (70-100) mg/dL Lactic Acid (0.5-2.0) mmol/L Calcium 7.8 L 7.3 L 7.8 L (8.6-10.3) mg/dL Phosphorus (2.5-5.0) mg/dL Magnesium 1.5 L 1.8 L 1.7 L (1.9-2.7) mg/dL Iron (50-212) ug/dL Ferritin (24-336) ng/mL Total Bilirubin 0.50 (0.2-1.0) mg/dL AST 22 (13-39) U/L ALT 15 (7-52) U/L Alkaline Phosphatase 65 (34-104) U/L Troponin I (<0.04) ng/mL Total Protein 5.9 L (6.4-8.9) g/dL Albumin 2.3 L (3.2-5.2) g/dL Globulin 3.6 (2-4) g/dL Albumin/Globulin Ratio 0.6 L (1-3) Cortisol mcg/dL 03/12/17 03/12/17 Range/Units 01:00 06:24 WBC (3.5-10.8) 10^3/ul RBC (4.0-5.4) 10^6/ul Hgb (14.0-18.0) g/dl Hct (42-52) % MCV (80-94) fL MCH (27-31) pg MCHC (31-36) g/dl RDW (10.5-15) % Plt Count (150-450) 10^3/ul MPV (7.4-10.4) um3 Neut % (Auto) (38-83) % Lymph % (Auto) (25-47) % [place] % (Auto) (1-9) % Eos % (Auto) (0-6) % Baso % (Auto) (0-2) % Absolute Neuts (auto) (1.5-7.7) 10^3/ul Absolute Lymphs (auto) (1.0-4.8) 10^3/ul Absolute Monos (auto) (0-0.8) 10^3/ul Absolute Eos (auto) (0-0.6) 10^3/ul Absolute Basos (auto) (0-0.2) 10^3/ul Absolute Nucleated RBC 10^3/ul Nucleated RBC % INR (Anticoag Therapy) (0.89-1.11) D-Dimer, Quantitative (Less Than 230) ng/mL VBG pH (7.33-7.43) VBG pCO2 (41-51) mmHg VBG pO2 (35-45) mmHg VBG HCO3 (24-28) mmol/L VBG O2 Saturation (70-80) % VBG Base Excess (0-4) Sodium (133-145) mmol/L Potassium (3.5-5.0) mmol/L Chloride (101-111) mmol/L Carbon Dioxide (22-32) mmol/L Anion Gap (2-11) mmol/L BUN (6-24) mg/dL Creatinine (0.67-1.17) mg/dL Est GFR ( Amer) (>60) Est GFR (Non-Af Amer) (>60) BUN/Creatinine Ratio (8-20) Glucose (70-100) mg/dL Lactic Acid (0.5-2.0) mmol/L Calcium (8.6-10.3) mg/dL Phosphorus (2.5-5.0) mg/dL Magnesium (1.9-2.7) mg/dL Iron (50-212) ug/dL Ferritin (24-336) ng/mL Total Bilirubin (0.2-1.0) mg/dL AST (13-39) U/L ALT (7-52) U/L Alkaline Phosphatase (34-104) U/L Troponin I 0.07 H* 0.06 H* (<0.04) ng/mL Total Protein (6.4-8.9) g/dL Albumin (3.2-5.2) g/dL Globulin (2-4) g/dL Albumin/Globulin Ratio (1-3) Cortisol mcg/dL ECG, personally reviewed: AFIB RVR rate 130, no ischemia CXR, personally reviewed: enlarging L pleural effusion Impression: 86M admitted for AFIB/RVR s/p cardioversion now with sudden onset atypical chest pain DIAGNOSIS & PLAN Primary chest pain w/ AFIB/RVR : trend troponin : cardiology involved, will defer further decisions enlarging L pleural effusion : likely driving AFIB : consider thoracentesis to r/o malignant effusion & infection Secondary adenoCA esophagus : continue management via oncology HTN : continue current management HLD : continue current management GERD : continue omeprazole
[2017-03-12] MEDS: Magnesium Oxide TAB* 400 MG PO SCH ×2 (07:39→20:56)
[2017-03-12] MEDS: Potassium Chlor TAB* 20 MEQ TAB.ER PO SCH ×2 (07:39→20:56)
[2017-03-12] MEDS: Apixaban* 5 MG TAB PO SCH (07:39)
[2017-03-12] MEDS: Amiodarone TAB* 400 MG PO SCH ×2 (07:41→20:56)
--- NOTE | 2017-03-12 08:01 | RAD ---
INDICATION: Shortness of breath. COMPARISON: Most recent comparison chest x-rays dated March 05, 2017 TECHNIQUE: Single AP portable view of the chest was obtained. FINDINGS: Image quality is compromised due to the relative inferiority of a portable chest x-ray. There is a right subclavian vein Mediport with the tip terminating at the cavoatrial junction. The heart and mediastinum exhibit normal size and contour. Mild calcified atherosclerosis is again noted at the aortic arch. There has been interval increase in the side of the left lung base pleural effusion. The right lung and upper left left lung remain adequately aerated. Visualized bones are normal for the patient's age. IMPRESSION: Interval increase of, now large, left lung base pleural effusion.
--- NOTE | 2017-03-12 08:42 | ED ---
judie Gomes Timothy, scribed for Daniel Eddy MD on 03/05/17 at 0815 . Progress - Progress Note Progress Note: Rajinder Patterson is an 86 yo male presenting to [facility] with dizziness since 199. He was signed out by Dr. Robert. At the time of evaluation, Pt is hypotensive and tachycardic, but still able to communicate effectively. EK, 127 BPM atrial flutter, 2:1 AV block, low voltage in extremity leads. - EKG/XRAY/CT Comments: see note Re-Evaluation - Re-Evaluation First Eval Re-Evaluation Time: 08:17 Change: Unchanged Comment: Pt is still hypotensive Second Eval Re-Evaluation Time: 08:27 Change: Improved Comment: Pt systolic BP improved to 71 Third Eval Re-Evaluation Time: 08:34 Change: Unchanged Comment: Discussed results of EKG with Pt. Fourth Eval Re-Evaluation Time: 08:46 Change: Unchanged Comment: Dr. Barrios is present in room evaluating Pt. Fifth Eval Comment: Pt is stable and awaiting transfer to ICU. Course/Dx - Course Course Of Treatment: [place] Patterson is an 86 yo male presenting to [facility] with dizziness since 19903/05/17. At the time of examination, Pt was also hypotensive and tachycardicm but capable of communication. In the ED he received IV fluids. His EKG suggests atrial flutter, 2:1 AV block, and low voltage in extremity leads. - Diagnoses Provider Diagnoses: Pericardial effusion - Provider Notifications Discussed Care Of Patient With: 0811 - Dr. Tinoco (hematology and oncology) - Discussed Pt condition, notably pericardial effusion. Recommends consult with ICU. 0814 - Dr. Ratliff (ICU) - Consult call out, awaiting return. 0817 - Dr. Barrios (cardiology) - Discussed Pt condition, notably pericardial effusion. Dr. Barrios will see Pt in the ED, and recommends transthoracic echocardiogram. 0820 - Dr. Ratliff (ICU) - Discussed Pt condition, notably pericardial effusion and lack of JVD. Will see Pt in ED, recommends admission to ICU and adminstration of fluids. 0849 - Dr. Barrios (cardiology) - evaluated Pt, discussed condition and admission to ICU. After evaluation, Dr. Barrios agrees with transfer to ICU as Pt is stable enough for transfer. Instructed by Provider To: Admit As Inpatient - ICU - Critical Care Time Critical Care Time: 30-74 min The documentation as recorded by the judie vora Timothy accurately reflects the service I personally performed and the decisions made by me, Daniel Eddy MD.
--- NOTE | 2017-03-12 11:42 | PN ---
Subjective Date of Service: 03/12/17 - CC: SOB Interval History: Recurrence of afib/flutter last evening with pain and SOB. Patient wants to see his daughter, does not feel well, but no specific c/o, his biggest concern is seeing his daughter. Medications Active Medications: Acetaminophen (Tylenol Tab*) 650 mg PO Q6H PRN PRN Reason: PAIN Amiodarone HCl (Cordarone Tab*) 400 mg PO BID [facility] Last Admin: 03/12/17 07:41 Dose: 400 mg Apixaban (Eliquis*) 5 mg PO BID [facility] Last Admin: 03/12/17 07:39 Dose: 5 mg Atorvastatin Calcium (Lipitor*) 10 mg PO 1700 [facility] Last Admin: 03/11/17 16:20 Dose: 10 mg Diltiazem HCl (Cardizem Iv Advan*) 100 mg in 100 mls @ 5 mls/hr IVPB ONCE ONE Stop: 03/12/17 20:42 Last Admin: 03/12/17 04:40 Dose: Not Given Magnesium Oxide (Magox 400 Tab*) 800 mg PO BID [facility] Last Admin: 03/12/17 07:39 Dose: 800 mg Metoprolol Tartrate (Lopressor Tab*) 25 mg PO Q6H [facility] Last Admin: 03/12/17 10:09 Dose: 25 mg Omeprazole (Prilosec Cap*) 20 mg PO DAILY@0600 [facility] Last Admin: 03/12/17 05:18 Dose: 20 mg Ondansetron HCl (Zofran Inj*) 4 mg IV Q6H PRN PRN Reason: NAUSEA Potassium Chloride (Klor Con Er Tab*) 20 meq PO BID [facility] Last Admin: 03/12/17 07:39 Dose: 20 meq Sucralfate (Carafate*) 1 gm PO TID PRN PRN Reason: DYSPEPSIA Last Admin: 03/06/17 18:18 Dose: 1 gm Trazodone HCl (Desyrel Tab*) 25 mg PO BEDTIME PRN PRN Reason: INSOMNIA Objective Vital Signs: Temp Pulse Resp BP Pulse Ox 97.5 F 157 20 121/73 97 03/12/17 08:37 03/12/17 08:37 03/12/17 08:37 03/12/17 10:07 03/12/17 10:07 Oxygen Devices in Use Now: Nasal Cannula Appearance: frail, elderly, malnourished, chronically ill appearing, listing at 25 degrees in bed, tearful and anxious. Eyes: PERRLA Ears/Nose/Mouth/Throat: Clear Oropharnyx Neck: Trachea Midline, No Thyroid Enlargement, Masses Respiratory: Symmetrical Chest Expansion and Respiratory Effort - diminished breathsounds in the bases., - - decreased breath sounds bases Cardiovascular: NL Sounds; No Murmurs; No JVD, RRR, - - tachycardic, andressa. Abdominal: NL Sounds; No Tenderness; No Distention, No Hepatosplenomegaly Extremities: - - mild edema Skin: No Rash or Ulcers Neurological: - - awake and alert Lines/Tubes/Other Access: Clean, Dry and Intact Peripheral IV Laboratory Results: 03/08/17 07:02 03/11/17 09:40 INR (Anticoag Therapy) 1.72 (0.89-1.11) H 03/05/17 03:30 Total Bilirubin 0.50 mg/dL (0.2-1.0) 03/11/17 09:40 AST 22 U/L (13-39) 03/11/17 09:40 ALT 15 U/L (7-52) 03/11/17 09:40 Alkaline Phosphatase 65 U/L (34-104) 03/11/17 09:40 Total Protein 5.9 g/dL (6.4-8.9) L 03/11/17 09:40 Albumin 2.3 g/dL (3.2-5.2) L 03/11/17 09:40 Globulin 3.6 g/dL (2-4) 03/11/17 09:40 Albumin/Globulin Ratio 0.6 (1-3) L 03/11/17 09:40 03/05/17 03/12/17 03/12/17 10:55 01:00 06:24 Troponin I 0.05 H* 0.07 H* 0.06 H* EKG Data: aflutter, rapid ventricular rate 150's, vs coarse afib. Assessment/Plan Mr. Patterson is an 86-year-old man with esophageal cancer undergoing chemotherapy, paroxysmal atrial fibrillation admitted with an atrial arrhythmias s/p cardioversion on admission, sotalol increased to 160 mg PO BID. The patient then developed 2 episodes on NSVT, RBBB mophology, 6 and 8 IAR, sotalol stopped. Recurrent afib/flutter last evening and Amiodarone 400 mg BID started , s/p 2 doses. Comorbities include hypertension, dyslipidemia, dementia also with pleural and moderate pericardial effusions suspected malignant. LVEF hyperdynamic with small cavity. Points of Discussion: Afib: As in the past he does not rate control well and does not tolerate the tachycardia with CP/SOB/low BP. Cardiovert today. He is at high risk for afib again even wth amiodarone due to his chronic electrolyte issues, chronic pleuropericardial fluid. Continue amiodarone loading. Aggressive option of pacer followed by AVN ablation and/or flutter ablation . Repleat Magnesium. Hyponatremia recurring, no longer on salt tablets, ? resume salt tabs for poss. SIADH or other management. Pleuropericardial effusions: As discussed, may be some benefit of a diagostic and theraputic tap. It looks like no team consensus and multiple physicians involved complicating the decision. Potential benefits of pleural tap and consider pleurex catheter to drain: check cytology and may provide relief of SOB and decrease chance of recurrent afib on the short term. Potential benefits of pericardial window: can get pathology from pericardium and fluid and may prevent recurrent pericardial fluid collection.
[2017-03-12] MEDS ORDERED: Magnesium Sulfate 2 GM IV* 2 GM/50 ML BAG IVPB ONE (11:52)
--- NOTE | 2017-03-12 14:54 | PN ---
Subjective Date of Service: 03/12/17 Interval History: Mr. Patterson states that he is feeling a bit short of breath but feels better now that he has laid down. He is teary-eyed and complains of missing his who is at home and also chronically ill. He denies other complaint including chest pain, SOB, nausea, or abdominal pain. Objective Active Medications: Acetaminophen (Tylenol Tab*) 650 mg PO Q6H PRN Amiodarone HCl (Cordarone Tab*) 400 mg PO BID ALEE Atorvastatin Calcium (Lipitor*) 10 mg PO 1700 ALEE Diltiazem HCl (Cardizem Iv Advan*) 100 mg in 100 mls @ 5 mls/hr IVPB ONCE ONE Magnesium Oxide (Magox 400 Tab*) 800 mg PO BID ALEE Metoprolol Tartrate (Lopressor Tab*) 25 mg PO Q6H ALEE Omeprazole (Prilosec Cap*) 20 mg PO DAILY@0600 ALEE Ondansetron HCl (Zofran Inj*) 4 mg IV Q6H PRN Potassium Chloride (Klor Con Er Tab*) 20 meq PO BID ALEE Sucralfate (Carafate*) 1 gm PO TID PRN Trazodone HCl (Desyrel Tab*) 25 mg PO BEDTIME PRN Vital Signs 03/11/17 03/11/17 03/11/17 16:20 17:06 19:12 Temperature 99.7 F 98.9 F 97.4 F Pulse Rate 73 78 Respiratory 22 22 Rate Blood Pressure 105/62 107/73 (mmHg) O2 Sat by Pulse 94 77 Oximetry 03/11/17 03/11/17 03/11/17 19:21 20:00 21:50 Temperature Pulse Rate Respiratory 22 Rate Blood Pressure 94/65 (mmHg) O2 Sat by Pulse 97 Oximetry 03/11/17 03/12/17 03/12/17 23:26 00:46 01:00 Temperature 98.2 F Pulse Rate 173 Respiratory 24 23 27 Rate Blood Pressure 107/59 (mmHg) O2 Sat by Pulse 97 Oximetry 03/12/17 03/12/17 03/12/17 01:01 01:15 01:30 Temperature Pulse Rate Respiratory 20 23 20 Rate Blood Pressure 108/79 (mmHg) O2 Sat by Pulse Oximetry 03/12/17 03/12/17 03/12/17 01:45 02:00 02:01 Temperature Pulse Rate Respiratory 22 22 16 Rate Blood Pressure 120/73 106/68 (mmHg) O2 Sat by Pulse Oximetry 03/12/17 03/12/17 03/12/17 02:15 02:30 02:45 Temperature Pulse Rate Respiratory 20 20 23 Rate Blood Pressure 126/59 117/77 126/73 (mmHg) O2 Sat by Pulse Oximetry 03/12/17 03/12/17 03/12/17 03:00 03:15 03:30 Temperature Pulse Rate Respiratory 16 19 19 Rate Blood Pressure 110/80 102/62 102/64 (mmHg) O2 Sat by Pulse Oximetry 03/12/17 03/12/17 03/12/17 03:45 04:00 04:15 Temperature Pulse Rate Respiratory 16 23 21 Rate Blood Pressure 103/57 106/89 106/74 (mmHg) O2 Sat by Pulse Oximetry 03/12/17 03/12/17 03/12/17 04:30 04:45 05:00 Temperature Pulse Rate Respiratory 19 19 14 Rate Blood Pressure 131/73 113/75 115/76 (mmHg) O2 Sat by Pulse Oximetry 03/12/17 03/12/17 03/12/17 05:11 05:15 05:30 Temperature Pulse Rate Respiratory 17 16 22 Rate Blood Pressure 115/63 113/78 92/79 (mmHg) O2 Sat by Pulse Oximetry 03/12/17 03/12/17 03/12/17 05:45 06:00 06:15 Temperature Pulse Rate Respiratory 20 23 21 Rate Blood Pressure 109/83 117/75 98/66 (mmHg) O2 Sat by Pulse Oximetry 03/12/17 03/12/17 03/12/17 06:29 06:30 06:45 Temperature Pulse Rate Respiratory 18 21 18 Rate Blood Pressure 101/67 121/65 (mmHg) O2 Sat by Pulse Oximetry 03/12/17 03/12/17 03/12/17 07:00 07:15 07:30 Temperature Pulse Rate Respiratory 27 20 24 Rate Blood Pressure 104/70 117/69 103/73 (mmHg) O2 Sat by Pulse Oximetry 03/12/17 03/12/17 03/12/17 07:38 07:41 07:45 Temperature Pulse Rate Respiratory 23 23 21 Rate Blood Pressure 100/61 98/70 115/69 (mmHg) O2 Sat by Pulse Oximetry 0503/12/17 03/12/17 08:00 08:15 08:30 Temperature Pulse Rate Respiratory 21 24 22 Rate Blood Pressure 118/76 106/76 102/78 (mmHg) O2 Sat by Pulse Oximetry 03/12/17 03/12/17 03/12/17 08:37 08:45 09:00 Temperature 97.5 F Pulse Rate 157 Respiratory 20 20 22 Rate Blood Pressure 100/61 103/66 110/66 (mmHg) O2 Sat by Pulse 100 Oximetry 03/12/17 03/12/17 03/12/17 09:15 09:30 09:45 Temperature Pulse Rate Respiratory 16 22 24 Rate Blood Pressure 97/63 101/76 114/67 (mmHg) O2 Sat by Pulse Oximetry 03/12/17 03/12/17 03/12/17 10:00 10:07 10:15 Temperature Pulse Rate Respiratory 23 18 Rate Blood Pressure 121/73 121/73 108/68 (mmHg) O2 Sat by Pulse 97 Oximetry 03/12/17 03/12/17 03/12/17 10:30 10:45 11:00 Temperature Pulse Rate Respiratory 21 21 25 Rate Blood Pressure 116/79 104/76 100/76 (mmHg) O2 Sat by Pulse Oximetry 03/12/17 03/12/17 03/12/17 11:15 11:30 11:31 Temperature Pulse Rate Respiratory 18 20 21 Rate Blood Pressure 98/52 108/73 103/65 (mmHg) O2 Sat by Pulse Oximetry 03/12/17 03/12/17 11:45 12:00 Temperature Pulse Rate Respiratory 22 22 Rate Blood Pressure 102/62 106/61 (mmHg) O2 Sat by Pulse Oximetry Oxygen Devices in Use Now: Nasal Cannula Appearance: Cachectic elderly male lying in bed in NAD Eyes: No Scleral Icterus Ears/Nose/Mouth/Throat: Mucous Membranes Moist Neck: Trachea Midline Respiratory: Symmetrical Chest Expansion and Respiratory Effort, - - Diminished in bases Cardiovascular: NL Sounds; No Murmurs; No JVD, No Edema Abdominal: NL Sounds; No Tenderness; No Distention Extremities: No Edema Skin: No Rash or Ulcers Neurological: Alert and Oriented x 3, NL Muscle Strength and Tone Nutrition: Taking PO's Result Diagrams: 03/08/17 07:02 03/11/17 09:40 Microbiology and Other Data: Microbiology 03/05/17 10:00 Nasal Screen MRSA (PCR)(KEYSHAWN) - Final Nasal Mrsa Negative Assess/Plan/Problems-Billing Assessment: Mr. Patterson is an 86 yo male with a PMH of esophageal cancer (s/p treatment, not active per oncology), difficult to control afib, htn, and hld who was admitted on 03/05/17 with rapid afib with pericardial and pleural effusions. - Patient Problems (1) Pleural effusion Comment: Worsening left sided pleural effusion, plan for diagnostic and therapeutic thoracentesis tomorrow. Dr. Crouch consulted. (2) Pericardial effusion Comment: No evidence of tamponade. Plan to evaluate fluid through analysis of pleural fluid with thoracentesis tomorrow. (3) Atrial fibrillation with rapid ventricular response Comment: S/p cardiversion on 03/05 but went back into afib on 03/11. Mag repleted. Appreciate cardiology input. Plan for cardioversion today and to continue amiodarone and metoprolol. Suspect that pleural and pericardial effusions are contributing to afib which has been difficult to control in the past per Dr. Barrios. If patient remains in afib would need pacemaker with av jinny ablation. However, will need to review risks and benefits with patient and his family given his frailty. Plan to evaluate pleural effusion, if reflective of metastic disease may change equation. Plan to hold eliquis for now for thoracentesis tomorrow. (4) HTN (hypertension) Comment: BP well controlled, continue cardizem and metoprolol for now. Cardiology consulted. (5) GERD (gastroesophageal reflux disease) Comment: Continue PPI. (6) HLD (hyperlipidemia) Code(s): E78.5 - HYPERLIPIDEMIA, UNSPECIFIED SNOMED Code(s): 32228782 Comment: Continue statin. (7) DVT prophylaxis Comment: SCDs overnight with plan for thoracentesis and then resume eliquis.
[2017-03-12] MEDS ORDERED: Meperidine SYRINGE* 50 MG/ML ONE (15:02)
[2017-03-12] MEDS ORDERED: fentaNYL* 50 MCG/ML 2 ML VIAL (100 MCG VIAL) ONE (15:02)
[2017-03-12] MEDS ORDERED: Lidocaine 2% PF * 5 ML VIAL ONE (15:03)
[2017-03-12] MEDS ORDERED: Etomidate* 2 MG/ML 10 ML VIAL ONE (15:03)
[2017-03-12] MEDS ORDERED: Propofol* 10 MG/ML 20 ML BTL IV PUSH ONE (15:03)
[2017-03-12] MEDS ORDERED: Amiodarone IV VIAL* 3 ML ONE (15:51)
[2017-03-12] MEDS ORDERED: Amiodarone IV VIAL* 50 MG/ML 3 ML VIAL (150 MG) SLOW PUSH ONE (15:51)
[2017-03-12] MEDS ORDERED: Amiodarone 150 MG IVPREMIX* 150 MG/100 ML BAG IV ONE (15:51)
--- NOTE | 2017-03-12 16:00 | PN ---
Cardiology Progress Note DOS: today 03/12/17 Full procedure dictated. S/p succesful cardioversion from Atrial flutter to normal sinus rhythm.
[2017-03-12] MEDS: Atorvastatin* 10 MG TAB PO SCH (17:03)
--- NOTE | 2017-03-12 22:10 | CARD ---
ELECTRICAL CARDIOVERSION: DATE OF PROCEDURE: 03/12/17 - ROOM #437 PROCEDURE: Electrical cardioversion. PREPROCEDURE DIAGNOSIS: Atrial flutter with a rapid ventricular response (150 beats per minute). DESCRIPTION OF PROCEDURE: The patient was in the postprandial state. Risks and benefits of the procedure have been discussed with the patient. Permission was obtained from the family and not the patient. Anesthesia provided conscious sedation and this has documented separately. After sedation, the patient received 75 joules of energy delivered via AP patches with cardioversion from atrial flutter with 2 to 1 block and 150 beats per minute ventricular response to normal sinus rhythm. Currently, he is in normal sinus rhythm, 93 beats per minute. Blood pressure 99/63, sats 100% on a venti mask, respiratory rate of 17. There were no complications. [id number]/[facility] #: [id number] TEDDY
[2017-03-13] MEDS: Metoprolol Tartrate TAB* 25 MG PO SCH ×3 (05:33→17:30)
[2017-03-13] MEDS: Omeprazole CAP* 20 MG PO SCH (05:33)
[2017-03-13] MEDS: Magnesium Oxide TAB* 400 MG PO SCH ×2 (08:46→20:25)
[2017-03-13] MEDS: Amiodarone TAB* 400 MG PO SCH ×2 (08:47→20:25)
[2017-03-13] MEDS: Potassium Chlor TAB* 20 MEQ TAB.ER PO SCH ×2 (08:47→20:25)
--- NOTE | 2017-03-13 16:56 | PN ---
Subjective Date of Service: 03/13/17 Interval History: Mr. Patterson is a bit teary during my interview with him and is eager for discharge to home. He denies chest pain, SOB, nausea, or abdominal pain. Objective Active Medications: Acetaminophen (Tylenol Tab*) 650 mg PO Q6H PRN Amiodarone HCl (Cordarone Tab*) 400 mg PO BID ALEE Atorvastatin Calcium (Lipitor*) 10 mg PO 1700 ALEE Magnesium Oxide (Magox 400 Tab*) 800 mg PO BID ALEE Metoprolol Tartrate (Lopressor Tab*) 25 mg PO Q6H ALEE Omeprazole (Prilosec Cap*) 20 mg PO DAILY@0600 ALEE Ondansetron HCl (Zofran Inj*) 4 mg IV Q6H PRN Potassium Chloride (Klor Con Er Tab*) 20 meq PO BID ALEE Sucralfate (Carafate*) 1 gm PO TID PRN Trazodone HCl (Desyrel Tab*) 25 mg PO BEDTIME PRN Vital Signs 03/12/17 03/12/17 03/12/17 17:15 17:29 17:30 Temperature Pulse Rate 88 87 Respiratory 21 19 Rate Blood Pressure 111/66 134/65 (mmHg) O2 Sat by Pulse 100 100 Oximetry 03/12/17 03/12/17 03/12/17 17:45 18:00 18:15 Temperature Pulse Rate 83 81 79 Respiratory 14 16 18 Rate Blood Pressure 104/65 110/63 107/70 (mmHg) O2 Sat by Pulse 100 100 100 Oximetry 03/12/17 03/12/17 03/12/17 18:30 18:45 18:46 Temperature Pulse Rate 84 80 80 Respiratory 23 19 19 Rate Blood Pressure 110/64 103/62 (mmHg) O2 Sat by Pulse 100 100 100 Oximetry 03/12/17 03/12/17 03/12/17 19:00 19:15 19:30 Temperature Pulse Rate 83 86 84 Respiratory 17 20 18 Rate Blood Pressure 105/58 109/65 107/64 (mmHg) O2 Sat by Pulse 100 100 100 Oximetry 03/12/17 03/12/17 03/12/17 19:45 20:00 20:05 Temperature 98.3 F Pulse Rate 86 88 Respiratory 19 20 Rate Blood Pressure 111/56 108/57 (mmHg) O2 Sat by Pulse 100 100 Oximetry 0503/12/17 03/12/17 20:15 20:30 20:45 Temperature Pulse Rate 93 87 86 Respiratory 19 18 18 Rate Blood Pressure 120/63 102/52 116/53 (mmHg) O2 Sat by Pulse 100 100 100 Oximetry 03/12/17 03/12/17 03/12/17 21:00 21:15 21:30 Temperature Pulse Rate 93 87 95 Respiratory 19 20 24 Rate Blood Pressure 118/64 (mmHg) O2 Sat by Pulse 100 100 100 Oximetry 03/12/17 03/12/17 03/12/17 21:45 22:00 22:15 Temperature Pulse Rate 84 87 84 Respiratory 19 25 24 Rate Blood Pressure 107/52 (mmHg) O2 Sat by Pulse 100 100 100 Oximetry 03/12/17 03/12/17 03/12/17 22:30 22:45 23:00 Temperature Pulse Rate 94 87 89 Respiratory 22 20 20 Rate Blood Pressure 122/55 (mmHg) O2 Sat by Pulse 100 100 100 Oximetry 03/12/17 03/12/17 03/12/17 23:04 23:15 23:30 Temperature Pulse Rate 88 94 93 Respiratory 22 19 21 Rate Blood Pressure (mmHg) O2 Sat by Pulse 99 100 100 Oximetry 03/12/17 03/12/17 03/13/17 23:45 23:47 00:00 Temperature 98.4 F Pulse Rate 90 Respiratory 16 20 21 Rate Blood Pressure 102/77 (mmHg) O2 Sat by Pulse 96 Oximetry 03/13/17 03/13/17 03/13/17 00:15 03:54 05:03 Temperature 97.6 F Pulse Rate 78 82 Respiratory 19 20 Rate Blood Pressure 120/72 (mmHg) O2 Sat by Pulse 82 100 Oximetry 03/13/17 03/13/17 03/13/17 07:54 08:00 12:13 Temperature 97.5 F Pulse Rate 76 95 Respiratory 20 16 24 Rate Blood Pressure 114/68 147/41 (mmHg) O2 Sat by Pulse 100 99 Oximetry 03/13/17 15:30 Temperature Pulse Rate Respiratory Rate Blood Pressure (mmHg) O2 Sat by Pulse 96 Oximetry Oxygen Devices in Use Now: Nasal Cannula Appearance: Cachectic male lying in bed in NAD Eyes: No Scleral Icterus Ears/Nose/Mouth/Throat: Mucous Membranes Moist Neck: Trachea Midline Respiratory: Symmetrical Chest Expansion and Respiratory Effort, Clear to Auscultation Cardiovascular: NL Sounds; No Murmurs; No JVD, No Edema Abdominal: NL Sounds; No Tenderness; No Distention Extremities: No Edema Skin: No Rash or Ulcers Neurological: Alert and Oriented x 3, NL Muscle Strength and Tone Nutrition: Taking PO's Result Diagrams: 03/08/17 07:02 03/11/17 09:40 Microbiology and Other Data: Microbiology 03/05/17 10:00 Nasal Screen MRSA (PCR)(KEYSHAWN) - Final Nasal Mrsa Negative Assess/Plan/Problems-Billing Assessment: Mr. Patterson is an 86 yo male with a PMH of esophageal cancer (s/p treatment, not active per oncology), difficult to control afib, htn, and hld who was admitted on 03/05/17 with rapid afib with pericardial and pleural effusions. - Patient Problems (1) Pleural effusion Comment: S/p diagnostic and therapeutic thoracentesis, awaiting results. Follow up chest xray pending. (2) Pericardial effusion Comment: No evidence of tamponade. Plan to evaluate fluid through analysis of pleural fluid with thoracentesis tomorrow. (3) Atrial fibrillation with rapid ventricular response Comment: Successful cardioversion on 03/12/17. Suspect that pleural and pericardial effusions are contributing to afib which has been difficult to control in the past per Dr. Barrios. If patient remains in afib would need pacemaker with av jinny ablation. However, will need to review risks and benefits with patient and his family given his frailty. Plan to evaluate pleural effusion, if reflective of metastic disease may change equation. Plan to hold eliquis for now for thoracentesis tomorrow. (4) HTN (hypertension) Comment: BP well controlled, continue metoprolol. (5) GERD (gastroesophageal reflux disease) Comment: Continue PPI. (6) HLD (hyperlipidemia) Code(s): E78.5 - HYPERLIPIDEMIA, UNSPECIFIED SNOMED Code(s): 44454075 Comment: Continue statin. (7) DVT prophylaxis Comment: SCDs overnight with plan for thoracentesis and then resume eliquis. Status and Disposition: Inpatient. Anticipate discharge to home when medically stable.
[2017-03-13] MEDS: Atorvastatin* 10 MG TAB PO SCH (17:30)
--- NOTE | 2017-03-13 18:11 | RAD ---
Indication: Left thoracentesis. Single frontal view of the chest performed at 1746 hours was reviewed. Comparison is made with previous exam dated March 12, 2017. No mediastinal shift is noted. Heart is of normal size and configuration. Lung heredia appear clear. Left pleural effusion has significantly decreased. No pneumothorax is noted. IMPRESSION: STATUS POST LEFT THORACENTESIS WITHOUT PNEUMOTHORAX.
[2017-03-13 18:41] LABS: Body Fluid Total Cells Counted 100
[2017-03-13 18:42] LABS: Body Fluid Appearance Cloudy; Body Fluid WBC 249 /mcL
[2017-03-13] MEDS: Acetaminophen TAB* 325 MG PO PRN (20:25)
[2017-03-14] MEDS: Metoprolol Tartrate TAB* 25 MG PO SCH ×3 (00:15→11:23)
[2017-03-14] MEDS: Omeprazole CAP* 20 MG PO SCH (05:39)
[2017-03-14] MEDS: Acetaminophen TAB* 325 MG PO PRN (05:39)
[2017-03-14 07:35] VITALS: BP 100/55
--- NOTE | 2017-03-14 07:44 | PRO ---
DATE OF PROCEDURE: 03/13/17 - ROOM #437 DATE OF : 32 SURGEON: Chidi Schwarz MD SEWER SEPARATION DESIGNER: None. ANESTHESIOLOGIST: None. PRE-OP DIAGNOSIS: Left pleural effusion. POST-OP DIAGNOSIS: Left pleural effusion. PROCEDURE PERFORMED: Left posterior thoracentesis. DESCRIPTION OF PROCEDURE: The patient was sitting at the bedside, leaning over the bedside table, the left chest was percussed and examined as well as review of the chest x-ray, the left chest is dull at least the third of the way up. It was prepped posteriorly with antiseptic and draped sterilely. Local anesthetic was administered and the ninth interspace was entered with a Skinny needle identifying clear yellow fluid. The thoracentesis catheter was then advanced at the site and sample was taken for the laboratory in 3 test tubes and this was then hooked to the evacuator bottle. Approximately 1300 mL of clear yellow fluid was forthcoming. The patient tolerated this well with just a little bit of cough at the end. The catheter was removed, bandage was placed, and chest x-ray will be obtained. Specimens were sent to the laboratory for studies as ordered by the hospitalist. CC: [facility]; Colleen Barrios MD * [id number]/[facility] #: [id number] MTDD
[2017-03-14] MEDS: Magnesium Oxide TAB* 400 MG PO SCH (08:24)
[2017-03-14] MEDS: Potassium Chlor TAB* 20 MEQ TAB.ER PO SCH (08:25)
[2017-03-14] MEDS: Amiodarone TAB* 400 MG PO SCH (08:25)
[2017-03-14] MEDS ORDERED: Apixaban* 5 MG TAB PO SCH (09:00)
[2017-03-14 09:28] LABS: BUN/Creatinine Ratio 25.3 (8-20); Calcium 8.1 mg/dL (8.6-10.3); EGFR African American 107.3 (>60); EGFR Non-African American 83.4 (>60); Magnesium 1.6 mg/dL (1.9-2.7); Potassium 4.2 mmol/L (3.5-5.0)
--- NOTE | 2017-03-14 09:31 | PN ---
Subjective Date of Service: 03/14/17 Interval History: Mr. Patterson denies complaint and is very eager for discharge to home. Objective Active Medications: Acetaminophen (Tylenol Tab*) 650 mg PO Q6H PRN Amiodarone HCl (Cordarone Tab*) 400 mg PO BID ALEE Apixaban (Eliquis*) 5 mg PO BID ALEE Atorvastatin Calcium (Lipitor*) 10 mg PO 1700 AELE Magnesium Oxide (Magox 400 Tab*) 800 mg PO BID ALEE Metoprolol Tartrate (Lopressor Tab*) 25 mg PO Q6H ALEE Omeprazole (Prilosec Cap*) 20 mg PO DAILY@0600 ALEE Ondansetron HCl (Zofran Inj*) 4 mg IV Q6H PRN Potassium Chloride (Klor Con Er Tab*) 20 meq PO BID ALEE Sucralfate (Carafate*) 1 gm PO TID PRN Trazodone HCl (Desyrel Tab*) 25 mg PO BEDTIME PRN Vital Signs 03/13/17 03/13/17 03/13/17 12:13 15:30 15:39 Temperature 97.6 F Pulse Rate 95 65 Respiratory 24 18 Rate Blood Pressure 147/41 99/55 (mmHg) O2 Sat by Pulse 99 96 83 Oximetry 03/13/17 03/13/17 03/14/17 19:30 20:00 00:15 Temperature 97.9 F Pulse Rate 79 Respiratory 20 17 Rate Blood Pressure 118/70 112/51 (mmHg) O2 Sat by Pulse 100 Oximetry 03/14/17 03/14/17 03/14/17 00:37 03:41 07:31 Temperature 97.9 F 97.8 F 97.7 F Pulse Rate 85 82 73 Respiratory 20 20 16 Rate Blood Pressure 109/56 109/52 100/55 (mmHg) O2 Sat by Pulse 97 100 100 Oximetry 03/14/17 03/14/17 07:35 08:00 Temperature Pulse Rate Respiratory 16 Rate Blood Pressure (mmHg) O2 Sat by Pulse 100 Oximetry Oxygen Devices in Use Now: Nasal Cannula Appearance: Elderly male sitting up in bed in NAD Eyes: No Scleral Icterus Ears/Nose/Mouth/Throat: Mucous Membranes Moist Neck: Trachea Midline Respiratory: Symmetrical Chest Expansion and Respiratory Effort, Clear to Auscultation Cardiovascular: NL Sounds; No Murmurs; No JVD, No Edema Abdominal: NL Sounds; No Tenderness; No Distention Extremities: No Edema Skin: No Rash or Ulcers Neurological: Alert and Oriented x 3, NL Muscle Strength and Tone Nutrition: Taking PO's Result Diagrams: 03/08/17 07:02 03/14/17 09:04 Microbiology and Other Data: Microbiology 03/05/17 10:00 Nasal Screen MRSA (PCR)(KEYSHAWN) - Final Nasal Mrsa Negative Assess/Plan/Problems-Billing Assessment: Mr. Patterson is an 86 yo male with a PMH of esophageal cancer (s/p treatment, not active per oncology), difficult to control afib, htn, and hld who was admitted on 03/05/17 with rapid afib with pericardial and pleural effusions. - Patient Problems (1) Pleural effusion Comment: Pt breathing easy. S/p diagnostic and therapeutic thoracentesis, no evidence of infection, awaiting cytology and protein/LDH levels which are a send out and will not be available until Friday. Oncology questions whether effusions could be related to radiation therapy. (2) Pericardial effusion Comment: No evidence of tamponade. Pleural fluid analysis pending. (3) Atrial fibrillation with rapid ventricular response Comment: Successful cardioversion on 03/12/17. Suspect that pleural and pericardial effusions are contributing to afib which has been difficult to control in the past per Dr. Barrios. If patient continues to have problems with afib would need pacemaker with av jinny ablation. Plan for close follow up outpatient with PCP, Cardiology, and Oncology. (4) Esophageal cancer Comment: S/p chemotherapy, no active disease per oncology. Continue close follow up outpatient. (5) HTN (hypertension) Comment: BP well controlled, continue metoprolol. (6) GERD (gastroesophageal reflux disease) Comment: Continue PPI. (7) HLD (hyperlipidemia) Code(s): E78.5 - HYPERLIPIDEMIA, UNSPECIFIED SNOMED Code(s): 41902710 Comment: Continue statin. (8) DVT prophylaxis Comment: Resume eliquis Status and Disposition: Inpatient. Discharge to home.
--- NOTE | 2017-03-15 01:41 | DS ---
[facility] MEDICINE DISCHARGE SUMMARY: DATE OF ADMISSION: 03/05/17 DATE OF DISCHARGE: 03/14/17 PRIMARY CARE PHYSICIAN: Dr. Spears. MEDICAL STAFF SPECIALIST: Dr. Barrios. ONCOLOGIST: Dr. Pavon. ATTENDING PHYSICIAN: Dr. Aleksandr Welch *(dictation provided by Karen Nguyen NP ) PRIMARY DIAGNOSES: 1. Rapid atrial fibrillation, status post cardioversion. 2. Pleural effusion, status post thoracentesis with 1.3 L clear fluid. 3. Pericardial effusion without tamponade. SECONDARY DIAGNOSES: 1. Esophageal cancer, status post chemotherapy and radiation. 2. Anemia. 3. Hypertension. 4. Hyperlipidemia. 5. Gastroesophageal reflux disease. MEDICATIONS AT THE TIME OF DISCHARGE: 1. Imipramine 50 mg p.o. b.i.d. 2. Omeprazole 20 mg p.o. b.i.d. 3. Simvastatin 40 mg p.o. at bedtime. 4. Eliquis 5 mg p.o. b.i.d. 5. Ondansetron p.r.n. 6. Trazodone 25 mg p.o. bedtime. 7. Magnesium oxide 800 mg p.o. t.i.d. 8. MiraLAX 17 g p.o. daily p.r.n. 9. Potassium chloride 20 mEq 2 tabs p.o. daily. 10. Sodium chloride 1 g p.o. b.i.d. 11. Colchicine 0.6 mg p.o. q.a.m. 12. Sucralfate 10 mL p.o. t.i.d. Discontinue sotalol, discontinue diltiazem. New medications: 1. Amiodarone 400 mg p.o. b.i.d. x7 days and then continue on 200 mg p.o. b.i.d. 2. Metoprolol succinate 50 mg p.o. daily. HOSPITAL COURSE: Mr. Patterson is an 86-year-old male with multiple admissions to the hospital over this year with recent diagnosis and treatment for esophageal cancer and atrial fibrillation with rapid ventricular response. Mr. Patterson returned to the hospital, 03/05/17, with rapid atrial fibrillation and weakness. Please see the dictated H and P from Dr. Ratliff for complete details. The patient had transthoracic echocardiogram at the time of admission , which showed no significant change from prior. He had chest thorax CTA which showed "there is a small interval increase in the size of the pericardial effusion and left pleural effusion relative to the 02/21/17 CT exam. Reflux of intravenously injected contrast into the hepatic veins and IVC can be seen in the setting of congestive heart failure and right heart failure. No CT evidence of pulmonary embolism." The patient was seen by Dr. Barrios from Cardiology, who proposed electrical cardioversion. This is completed on and the patient was able to be restored to a normal sinus rhythm. A repeat echocardiogram was again done on 03/07/17 just to assess pericardial effusion that showed no signs of significant hemodynamic compromise with mild-to- moderate circumferential pericardial effusion and actually noted that the effusion was slightly smaller. Mr. Patterson was noted to have shortness of breath and rapid heart rate again on , at which time, he was noted again to be back into atrial fibrillation. Chest x-ray at that time showed that his pleural effusion had actually increased in size. The patient was placed on amiodarone in addition to metoprolol. Dr. Barrios notes that the patient had been very difficult to control with rapid heart rate in the past in the setting of AFib and again recommended cardioversion, which was performed on 03/12/17, again with good effect and hoahaoism of normal sinus rhythm. For Mr. Patterson's pleural effusion, he has been seen by Surgery and Dr. Schwarz performed thoracentesis on 03/13/17 withdrawing 1.3 L of clear fluid. The fluid analysis in terms of protein and LDH are pending and cytology, so the etiology of the fluid is unclear. The patient tolerated that procedure well. The patient has had no hemodynamic compromise from his pericardial effusion and there is no plan for pericardiocenteisis at this point. The patient will be following closely with Dr. Pavon regarding the analysis of the fluid. Dr. Pavon' s suspicion is that the pleural and pericardial effusions are related to radiation therapy, but that again is yet to be determined. Dr. Barrios notes that the patient would likely benefit from pacemaker and AV node ablation if he continues to have problems with ongoing rapid atrial fibrillation. He will be following up with her in the outpatient setting to determine if he would like to pursue this course of treatment. Mr. Patterson is medically stable for discharge to home. DISPOSITION: Home. DIET: Regular. ACTIVITY: As tolerated. FOLLOWUP PLANS: 1. Please follow up on Friday for basic metabolic panel with results forwarded to Dr. Spears to check electrolytes. The patient has been restarted on his sodium tab at the conclusion of this hospitalization. 2. Please follow with Dr. Pavon regarding recent diagnosis and treatment for esophageal cancer and analysis of pleural fluid. 3. Please follow up with Dr. Barrios regarding management of atrial fibrillation. TIME SEEN: Approximately 75 minutes was spent on the discharge of this patient , more than half the time spent with the patient at the bedside reviewing the events leading up to this hospitalization, performing the physical examination, and reviewing my plan of care. KAREN NGUYEN NP CC: Dr. Spears; Dr. Barrios; Dr. Pavon* [id number]/[facility] #: [id number] MTDD
[2017-03-15 13:49] LABS: Glucose, BF 123 mg/dL
== END 2017-03-14 13:00 | disposition home or self-care (01) | DRG 308 ==
LOC: ED 02:14 → ICU 08:30 → MEDTELE 03-06 11:40
PROVIDERS: ADMIT Specialist; ATTEND Internal Medicine
PROC: 5A2204Z Restoration of Cardiac Rhythm, Single (ICD-10-PCS; principal; 2017-03-05)
PROC: 5A2204Z Restoration of Cardiac Rhythm, Single (ICD-10-PCS; 2017-03-12)
PROC: 0W9B3ZX Drainage of Left Pleural Cavity, Percutaneous Approach, Diagnostic (ICD-10-PCS; 2017-03-13)
DX: I48.91 Unspecified atrial fibrillation (principal); R57.1 Hypovolemic shock; J90 Pleural effusion, not elsewhere classified; I50.23 Acute on chronic systolic (congestive) heart failure; E22.2 Syndrome of inappropriate secretion of antidiuretic hormone; E44.0 Moderate protein-calorie malnutrition; I31.3 Pericardial effusion (noninflammatory); J98.11 Atelectasis; D64.9 Anemia, unspecified; E78.5 Hyperlipidemia, unspecified; K21.9 Gastro-esophageal reflux disease without esophagitis; I11.0 Hypertensive heart disease with heart failure; Z68.21 Body mass index [BMI] 21.0-21.9, adult; Z85.01 Personal history of malignant neoplasm of esophagus; Z87.891 Personal history of nicotine dependence; Z88.8 Allergy status to other drugs, medicaments and biological substances; Z88.5 Allergy status to narcotic agent
CPT/HCPCS: 36415; 71010; 71020; 71275; 80048; 80053; 82533; 82728; 82803; 82945; 83540; 83605; 83615; 83735; 83986; 84100; 84157; 84484; 85025; 85027; 85379; 85610; 87070; 87205; 87641; 88112; 88305; 89051; 92960; 93005; 93306; 93308; 94640; 94760; 99232; 99233; A9270-GY; J0282; J1720; J2250; J2270; J2310; J2704; J3010; J3480; Q9967